=== PATIENT | female | born 1950 | race Caucasian/White ===

== ENCOUNTER 2019-12-23 15:33 | Emergency (ER) | payer MEDICARE, MEDICAID ==
[~2019-12-23] VITALS: Ht 154.9 cm; Wt 76.8 kg
[~2019-12-23 15:33] MED LIST: AMBI10TA; AMBI10TA OR; BABY81CH; CEFT500T; CLON0.2T; CLON0.2T OR; COUM1TAB17; ENAL5TAB OR; FURO80TA2; FURO80TA2 OR; GLYB1.255; HYDR25TA7; HYDR25TA7 OR; INSULANT SC; ISOS30BRAN; ISOS30TA4 OR; KLOR10TA OR; LEVO2TA; LEVO2TA OR; LOPR50TA; LOPR50TA OR; METOPROLOL TARTRATE; NEUR100C OR; NITR0.4S SL; PLAV75TA2 OR; POTA10CA2; RANI150C OR; ULORIC; ZANT150T; ZETI10TA; ZETI10TA OR; uloric PO
[2019-12-23] MEDS ORDERED: NS 1,000 ML IV SCH ×2 (15:57→16:45)
[2019-12-23] MEDS ORDERED: ONDANSETRON 4MG/2ML VIAL IV ONE (16:30)
[2019-12-23 16:37] LABS: BASO # 0.1 10^3/uL (0.0-0.2); BASO % 0.5 % (0.0-1.0); EOS # 0.3 10^3/uL (0.0-0.5); EOS % 2.8 % (0.0-3.0); HEMATOCRIT 42.8 % (36.0-47.0); HEMOGLOBIN 13.8 g/dl (12.0-15.5); LYMPH % 17.8 % (24.0-44.0); MEAN CORPUSCULAR HEMOGLOBIN 29.7 pg (27.0-33.0); MEAN CORPUSCULAR HGB CONC 32.2 g/dl (32.0-36.5); MEAN CORPUSCULAR VOLUME 92.2 fl (80.0-96.0); MONO # 0.4 10^3/uL (0.0-0.8); MONO % 3.6 % (0.0-5.0); NEUTROPHILS # 8.3 10^3/uL (1.5-8.5); NEUTROPHILS % 74.5 % (36.0-66.0); PLATELET COUNT, AUTOMATED 225 10^3/uL (150-450); RED BLOOD COUNT 4.64 10^6/uL (4.00-5.40); WHITE BLOOD COUNT 11.2 10^3/uL (4.0-10.0)
[2019-12-23 16:49] LABS: INR 1.05; PROTHROMBIN TIME 13.9 SECONDS (12.5-14.3)
[2019-12-23 17:07] LABS: ALBUMIN 2.9 GM/DL (3.2-5.2); BILIRUBIN,DIRECT 0.1 MG/DL (0.0-0.2); BILIRUBIN,TOTAL 0.4 MG/DL (0.2-1.0); TOTAL PROTEIN 6.9 GM/DL (6.4-8.2)
[2019-12-23] MEDS ORDERED: CLOP75TA2 PO (17:14)
[2019-12-23] MEDS ORDERED: GABA-843 PO (17:14)
[2019-12-23] MEDS ORDERED: AMIT25TA PO (17:14)
[2019-12-23] MEDS ORDERED: LEVO200T4 PO (17:14)
[2019-12-23] MEDS ORDERED: OMEG12003 PO (17:14)
[2019-12-23] MEDS ORDERED: FERR325T81 PO (17:14)
[2019-12-23] MEDS ORDERED: D31000TA2 PO (17:14)
[2019-12-23] MEDS ORDERED: ATOR1TAB19 PO (17:14)
[2019-12-23] MEDS ORDERED: ENAL5TA PO (17:14)
[2019-12-23] MEDS ORDERED: ALLO100T PO (17:14)
[2019-12-23] MEDS ORDERED: OTEZ1TAB3 PO (17:14)
[2019-12-23] MEDS ORDERED: COLE1TAB PO (17:14)
[2019-12-23] MEDS ORDERED: EZET10TA21 PO (17:14)
[2019-12-23] MEDS ORDERED: ISOS30TA4 PO (17:14)
[2019-12-23] MEDS ORDERED: MELA5CAP2 PO (17:14)
[2019-12-23] MEDS ORDERED: METO50TA7 PO (17:14)
[2019-12-23] MEDS ORDERED: PANT-23 PO (17:14)
--- NOTE | 2019-12-23 18:11 | REPVR ---
PROCEDURE INFORMATION: Exam: CT Abdomen And Pelvis Without Contrast Exam date and time: 12/23/2019 4:59 PM Age: 69 years old Clinical indication: Abdominal pain; Generalized; Additional info: Vomtiing/abd pain TECHNIQUE: Imaging protocol: Computed tomography of the abdomen and pelvis without contrast. Radiation optimization: All CT scans at this facility use at least one of these dose optimization techniques: automated exposure control; mA and/or kV adjustment per patient size (includes targeted exams where dose is matched to clinical indication); or iterative reconstruction. COMPARISON: No relevant prior studies available. FINDINGS: Liver: Normal. No mass. Gallbladder and bile ducts: There has been a cholecystectomy. Intra and extrahepatic biliary ductal dilatation is of questionable important given prior cholecystectomy. Pancreas: Normal. No ductal dilation. Spleen: Normal. No splenomegaly. Adrenals: Normal. No mass. Kidneys and ureters: Right kidney has been surgically removed. 2 mm calcification in the left pelvis on series 201, image 121 appears to be immediately anterior to the left distal ureter in is more likely a phlebolith rather than a ureteral calculus. No left-sided hydronephrosis or hydroureter. There is multifocal left renal cortical scarring Stomach and bowel: There is a moderate amount of stool in the rectum. No bowel dilatation to indicate obstruction. No pneumatosis. There are a few scattered colonic diverticula without gross features of diverticulitis. Appendix: Appendix is grossly unremarkable. Intraperitoneal space: Unremarkable. No free air. No significant fluid collection. Vasculature: Descending thoracic aorta is tortuous and atherosclerotic. Coronary atherosclerosis is noted. There is calcified atherosclerotic plaque in the abdominal aorta and medium-sized arteries in the abdomen and pelvis. No aortic aneurysm. Inferior vena cava filter is present. The distal tips of the prongs protrude slightly inferiorly. Lymph nodes: Unremarkable. No enlarged lymph nodes. Urinary bladder: Unremarkable as visualized. Reproductive: Unremarkable as visualized. Bones/joints: Prior bilateral obturator ring fractures, with reconstruction plate. No acute fracture. Soft tissues: Multiple injection sites are noted in the subcutaneous tissues of the anterior abdominal wall. There is a screw across the left sacroiliac joint through a healed left sacral fracture. Small noninflamed fat containing umbilical hernia. IMPRESSION: 1. No acute findings. 2. Additional findings: Status post right nephrectomy. Intra and extrahepatic biliary ductal dilatation of questionable significance given prior cholecystectomy. Scattered colonic diverticula without gross features of diverticulitis. 2 mm calculus in the left pelvis appears to be a phlebolith immediately adjacent to the left distal ureter. Small noninflamed fat containing umbilical hernia. Electronically signed by: Virgen Boyer On 12/23/2019 18:10:20 PM
[2019-12-23 19:35] LABS: HEMOGLOBIN A1c 6.5 %
[2019-12-23] MEDS ORDERED: ONDA4TAB6 PO ×2 (20:54→21:29)
[2019-12-23] MEDS ORDERED: CEPH250T PO ×2 (20:54→21:29)
--- NOTE | 2019-12-23 20:58 | ECGEPIP ---
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
[2019-12-23 21:00] VITALS: BP 169/103
[2019-12-23] MEDS ORDERED: CEPHALEXIN 250MG CAPSULE PO ONE (21:00)
[2019-12-24] MEDS ORDERED: ZOLP5TAB PO (01:03)
== END 2019-12-23 21:59 | disposition home or self-care (01) ==
LOC: M ED 15:33
DX: N39.0 Urinary tract infection, site not specified (principal); R11.10 Vomiting, unspecified; I10 Essential (primary) hypertension; E03.9 Hypothyroidism, unspecified; Z79.899 Other long term (current) drug therapy; Z87.891 Personal history of nicotine dependence; Z88.0 Allergy status to penicillin; Z88.1 Allergy status to other antibiotic agents; Z88.6 Allergy status to analgesic agent
CPT/HCPCS: 74176; 80047; 80076; 81001; 83036; 83690; 85025; 85610; 87086; 93005; 93041; 96361; 96374; 99285; J2405

== ENCOUNTER 2019-12-24 00:47 | Emergency (ER) | payer MEDICARE, MEDICAID ==
[~2019-12-24] VITALS: Ht 154.9 cm; Wt 76.8 kg
[~2019-12-24 00:47] MED LIST changes: +ALLO100T PO; +AMIT25TA PO; +ATOR1TAB19 PO; +CEPH250T PO; +CLOP75TA2 PO; +COLE1TAB PO; +D31000TA2 PO; +ENAL5TA PO; +EZET10TA21 PO; +FERR325T81 PO; +GABA-843 PO; +ISOS30TA4 PO; +LEVO200T4 PO; +MELA5CAP2 PO; +METO50TA7 PO; +OMEG12003 PO; +ONDA4TAB6 PO; +OTEZ1TAB3 PO; +PANT-23 PO
[2019-12-24] MEDS ORDERED: ZOLP5TAB PO (01:03)
[2019-12-24] MEDS ORDERED: LORazepam 2 MG/ML VIAL IV STA (01:41)
[2019-12-24] MEDS ORDERED: IPRATROPIUM 0.5MG/ALBUTEROL 2.5MG INH SOL UD 3ML (DUONEB) NEB ONE (01:45)
[2019-12-24 02:10] LABS: BASO # 0.2 10^3/uL (0.0-0.2); BASO % 0.8 % (0.0-1.0); EOS % 0.2 % (0.0-3.0); HEMATOCRIT 50.4 % (36.0-47.0); LYMPH # 2.4 10^3/uL (1.5-5.0); MEAN CORPUSCULAR HGB CONC 31.7 g/dl (32.0-36.5); MEAN CORPUSCULAR VOLUME 94.4 fl (80.0-96.0); MONO # 0.6 10^3/uL (0.0-0.8); MONO % 3.1 % (0.0-5.0); NEUTROPHILS # 16.9 10^3/uL (1.5-8.5); NEUTROPHILS % 83.3 % (36.0-66.0); PLATELET COUNT, AUTOMATED 308 10^3/uL (150-450); RED BLOOD COUNT 5.34 10^6/uL (4.00-5.40); WHITE BLOOD COUNT 20.3 10^3/uL (4.0-10.0)
[2019-12-24 02:42] LABS: ABG HCO3 19.2 MEQ/L (22.0-26.0); ABG O2 SATURATION 92.7 % (95.0-99.0); ABG PARTIAL PRESSURE CO2 49.9 mmHg (35.0-45.0); ABG PARTIAL PRESSURE O2 71.8 mmHg (75.0-100.0); ABG STANDARD HCO3 17.3 MEQ/L (22.0-26.0); ABG TOTAL CO2 20.7 MEQ/L (23.0-31.0)
--- NOTE | 2019-12-24 02:42 | REPVR ---
PROCEDURE INFORMATION: Exam: XR Chest, 1 View Exam date and time: 12/24/2019 2:13 AM Age: 69 years old Clinical indication: Cough; Additional info: Dyspnea/cough TECHNIQUE: Imaging protocol: XR of the chest Views: 1 view. COMPARISON: No relevant prior studies available. FINDINGS: Limitations: Examination is limited somewhat by the portable technique. Lungs: Right perihilar infiltrate. Mild left lower lobe infiltrate. Pleural space: Unremarkable. No pleural effusion. No pneumothorax. Heart/Mediastinum: Heart size is within normal limits. Bones/joints: Unremarkable. IMPRESSION: Bilateral infiltrates. Pulmonary edema versus pneumonia. Electronically signed by: Linda Lujan On 12/24/2019 02:41:46 AM
[2019-12-24 02:47] LABS: ABG pH (ARTERIAL) 7.203 UNITS (7.350-7.450)
[2019-12-24 02:49] LABS: ALT/SGPT 29 U/L (12-78); BILIRUBIN,DIRECT < 0.1 MG/DL (0.0-0.2); BILIRUBIN,TOTAL 0.4 MG/DL (0.2-1.0); BLOOD UREA NITROGEN 35 MG/DL (7-18); CALCIUM LEVEL 9.6 MG/DL (8.8-10.2); CARBON DIOXIDE LEVEL 23 MEQ/L (21-32); CHLORIDE LEVEL 112 MEQ/L (98-107); CK-MB VALUE MASS 7.9 NG/ML (<3.6); CPK CREATINE PHOSPHOKINASE 135 U/L (26-192); CREATININE FOR GFR 2.26 MG/DL (0.55-1.30); GLOMERULAR FILTRATION RATE 22.9 (>45); GLUCOSE, FASTING 272 MG/DL (70-100); MB/CK RELATIVE INDEX 5.85 (< OR =4); NT-PRO BNP 22984 PG/ML (<125); POTASSIUM SERUM 5.3 MEQ/L (3.5-5.1); SODIUM LEVEL 143 MEQ/L (136-145); TOTAL PROTEIN 7.5 GM/DL (6.4-8.2); TROPONIN I 1.04 NG/ML (< 0.10)
[2019-12-24] MEDS ORDERED: IPRATROPIUM 0.5MG/ALBUTEROL 2.5MG INH SOL UD 3ML (DUONEB) NEB SCH (03:00)
[2019-12-24] MEDS ORDERED: FUROSEMIDE 100MG/10ML VIAL (J1940) IV ONE (03:00)
--- NOTE | 2019-12-24 03:16 | REPVR ---
PROCEDURE INFORMATION: Exam: CT Chest Without Contrast Exam date and time: 12/24/2019 2:49 AM Age: 69 years old Clinical indication: Shortness of breath; Additional info: SOB, infiltrates vs pulmonary edema on cxr TECHNIQUE: Imaging protocol: Computed tomography of the chest without contrast. 3D rendering (Not supervised by radiologist): MIP and/or 3D reconstructed images were created by the technologist. Radiation optimization: All CT scans at this facility use at least one of these dose optimization techniques: automated exposure control; mA and/or kV adjustment per patient size (includes targeted exams where dose is matched to clinical indication); or iterative reconstruction. COMPARISON: CR PORTABLE CHEST X-RAY 12/24/2019 2:07 AM FINDINGS: Tracheobronchial tree: Visualized airway is unremarkable. Lungs: Diffuse interlobular septal thickening. Diffuse ground-glass opacities bilaterally. Pleural space: Mild bilateral pleural effusions. No pneumothorax. Heart: Mild cardiomegaly. No pericardial effusion. Coronary arteries: Moderate coronary artery calcification. Moderate coronary artery calcification. Aorta: Moderate calcified atherosclerotic disease. No aortic aneurysm. Veins: Tip of the IVC filter seen. Filter is not completely imaged. Lymph nodes: Unremarkable. No enlarged lymph nodes. Diaphragm: Elevated left hemidiaphragm. Kidneys and ureters: Status post right nephrectomy. Bones/joints: No acute fracture. 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 Soft tissues: Unremarkable. IMPRESSION: 1. Diffuse interlobular septal thickening and ground-glass opacities. Suspicious for pulmonary edema. Pneumonia cannot be excluded. Findings are significantly increased from prior. 2. Additional findings as described. Electronically signed by: Linda Lujan On 12/24/2019 03:16:12 AM
[2019-12-24 04:55] LABS: CK-MB VALUE MASS 8.7 NG/ML (<3.6); MB/CK RELATIVE INDEX 9.56 (< OR =4); TROPONIN I 1.18 NG/ML (< 0.10)
--- NOTE | 2019-12-24 05:42 | IPNPDOC ---
Text Note Date of Service The patient was seen on 12/24/19. NOTE is a 69 yr old w a hx of premature CAD (first IA was in her 20s has had multiple stents, ), PAD, CKD, DM CHF who was seen yesterday for UTI; she received 700ml of IVF and abx and was sent home but returned because she developed orthopnea. On ROS she admitted to having relapsing and remitting chest pain frequently with the last episode prior to the ambulance's arrival. Her physical exam was remarkable for inspiratory crackles and BLE edema. Her EKG didn't show acute ST elevations, BNP was 22,000 CT chest showed pulmonary edema and troponin was >1.0. #Dyspnea possibly 2/2 acute CHF Plan: c/w lasix #NSTEMI Because her IRENE score is 6 she has a 41% risk of 14 day all cause mortality. We recommend transfer to another facility in case she needs PCI. rest per 's H&P VS,Fishbone, I+O VS, Wilfridbone, I+O Laboratory Tests 12/24/19 01:56 Vital Signs Date Time Temp Pulse Resp B/P (MAP) Pulse Ox O2 Delivery O2 Flow Rate FiO2 12/24/19 05:17 115 94 12/24/19 04:48 143/89 (107) 12/24/19 04:32 16 12/24/19 01:16 Nasal Cannula 2.0 12/24/19 01:15 97.0 HERNAN PEREZ MD Dec 24, 2019 05:42
[2019-12-24] MEDS ORDERED: HEPARIN DRIP 25,000 UNITS in IV 1 EA IV SCH (06:28)
[2019-12-24] MEDS ORDERED: CLOPIDOGREL 300 MG TAB (PLAVIX) PO ONE (06:30)
[2019-12-24] MEDS ORDERED: HEPARIN SOD (PORCINE) 5000UNITS/ML 1ML VIAL/SYRINGE IV ONE (06:30)
[2019-12-24] MEDS ORDERED: ASPIRIN 81 MG CHEW TABLET PO ONE (06:30)
[2019-12-24 07:52] LABS: INR 1.04; PROTHROMBIN TIME 13.8 SECONDS (12.5-14.3)
[2019-12-24 07:53] LABS: PARTIAL THROMBOPLASTIN TIME 27.5 SECONDS (24.2-38.5)
[2019-12-24 08:40] VITALS: BP 124/86
--- NOTE | 2019-12-24 18:00 | ECGEPIP ---
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
== END 2019-12-24 08:48 | disposition short-term general hospital (02) ==
LOC: M ED 00:47
DX: I50.9 Heart failure, unspecified (principal); R79.89 Other specified abnormal findings of blood chemistry; R94.31 Abnormal electrocardiogram [ECG] [EKG]; I11.0 Hypertensive heart disease with heart failure; E03.9 Hypothyroidism, unspecified; Z88.0 Allergy status to penicillin; Z88.6 Allergy status to analgesic agent; Z88.1 Allergy status to other antibiotic agents; Z79.899 Other long term (current) drug therapy
CPT/HCPCS: 36415; 36600; 71045; 71250; 80048; 80076; 82550; 82553; 82803; 83605; 83880; 84484; 85025; 85610; 85730; 87486; 87581; 87633; 87798; 93005; 93041; 94640; 94760; 96365; 96375; 99285; J1644; J1940; J2060

== ENCOUNTER → 2020-02-17 | Outpatient (REF) | payer MEDICARE ==
[~2020-02-17] MED LIST changes: +ZOLP5TAB PO
[2020-02-18 13:11] LABS: HEMATOCRIT 42.3 % (36.0-47.0); HEMOGLOBIN 13.1 g/dl (12.0-15.5); MEAN CORPUSCULAR HEMOGLOBIN 30.5 pg (27.0-33.0); MEAN CORPUSCULAR VOLUME 98.6 fl (80.0-96.0); PLATELET COUNT, AUTOMATED 252 10^3/uL (150-450); RED BLOOD COUNT 4.29 10^6/uL (4.00-5.40); WHITE BLOOD COUNT 8.2 10^3/uL (4.0-10.0)
[2020-02-18 13:50] LABS: CHOLESTEROL RISK RATIO 2.625 (<5); CREATININE FOR GFR 1.85 MG/DL (0.55-1.30); FREE T4 3.53 NG/DL (0.76-1.46); GLOMERULAR FILTRATION RATE 28.9 (>45); POTASSIUM SERUM 4.9 MEQ/L (3.5-5.1); THYROID STIMULATING HORMONE 0.019 uIU/ML (0.358-3.740); URIC ACID 9.4 MG/DL (2.6-6.0)
== END ==
LOC: M SFHCADAM 15:31
PROVIDERS: ATTEND Physician Assistant
DX: E03.9 Hypothyroidism, unspecified (principal); E11.21 Type 2 diabetes mellitus with diabetic nephropathy; N18.32 Chronic kidney disease, stage 3b; I25.10 Atherosclerotic heart disease of native coronary artery without angina pectoris; Z87.39 Personal history of other diseases of the musculoskeletal system and connective tissue; Z23 Encounter for immunization
CPT/HCPCS: 80048; 80061; 84439; 84443; 84550; 85027; 90732; G0009; G0463

== ENCOUNTER → 2020-04-20 | Outpatient (REF) | payer MEDICARE ==
[~2020-04-20] MED LIST changes: -AMIT25TA PO; +AMIT25TA17 PO; +GABA-282 PO; -GABA-843 PO; +ISOS1TAB35 PO; -ISOS30TA4 PO
[2020-04-20 17:16] LABS: HEMOGLOBIN A1c 6.6 %
[2020-04-20 17:30] LABS: FREE T4 2.37 NG/DL (0.76-1.46); THYROID STIMULATING HORMONE < 0.005 uIU/ML (0.358-3.740)
== END ==
LOC: M SFHCADAM 12:07
PROVIDERS: ATTEND Physician Assistant
DX: E03.9 Hypothyroidism, unspecified (principal); E11.21 Type 2 diabetes mellitus with diabetic nephropathy; K52.9 Noninfective gastroenteritis and colitis, unspecified

== ENCOUNTER → 2020-06-20 | Outpatient (REF) | payer MEDICARE ==
[2020-06-20 13:26] LABS: FREE T4 1.55 NG/DL (0.76-1.46); THYROID STIMULATING HORMONE < 0.005 uIU/ML (0.358-3.740)
[2020-06-20 13:31] LABS: HEMOGLOBIN A1c 6.7 %
== END ==
LOC: M SFHCADAM 10:16
PROVIDERS: ATTEND Physician Assistant
DX: E11.21 Type 2 diabetes mellitus with diabetic nephropathy (principal); E03.9 Hypothyroidism, unspecified
CPT/HCPCS: 83036; 84439; 84443; G0463

== ENCOUNTER 2021-01-01 20:32 | Inpatient (IN) | payer MEDICARE ==
[~2021-01-01] VITALS: Ht 154.9 cm; Wt 81.5 kg
[2021-01-01 22:31] LABS: HEMATOCRIT 39.1 % (36.0-47.0); HEMOGLOBIN 12.7 g/dl (12.0-15.5); MEAN CORPUSCULAR HEMOGLOBIN 31.4 pg (27.0-33.0); MEAN CORPUSCULAR HGB CONC 32.5 g/dl (32.0-36.5); MEAN CORPUSCULAR VOLUME 96.5 fl (80.0-96.0); PLATELET COUNT, AUTOMATED 142 10^3/uL (150-450); RED BLOOD COUNT 4.05 10^6/uL (4.00-5.40)
[2021-01-01 22:42] LABS: INR 1.05; PROTHROMBIN TIME 14.2 SECONDS (12.7-14.5)
[2021-01-01 22:43] LABS: PARTIAL THROMBOPLASTIN TIME 37.8 SECONDS (25.9-37.0)
[2021-01-01 22:45] LABS: D-DIMER QUANT 3331.45 ng/ml (<500)
[2021-01-01 23:03] LABS: ALBUMIN 2.1 GM/DL (3.2-5.2); BILIRUBIN,TOTAL 0.6 MG/DL (0.2-1.0); C REACTIVE PROTEIN QUANTITATIV 15.7 MG/DL (0.00-0.30); CK-MB VALUE MASS 2.1 NG/ML (<3.6); CREATININE FOR GFR 1.79 MG/DL (0.55-1.30); GLOMERULAR FILTRATION RATE 29.9 (>45); MAGNESIUM LEVEL 2.1 MG/DL (1.8-2.4); MB/CK RELATIVE INDEX 0.61 (< OR =4); POTASSIUM SERUM 3.6 MEQ/L (3.5-5.1); TOTAL PROTEIN 5.8 GM/DL (6.4-8.2); TROPONIN I 0.05 NG/ML (< 0.10)
[2021-01-01 23:11] LABS: LYMPHOCYTES 16 % (16-44); MONOCYTES 3 % (0-5); NEUTROPHILS 79 % (28-66)
[2021-01-01 23:12] LABS: PLATELET ESTIMATE DECREASED (NORMAL)
[2021-01-02] VITALS (7 sets, daily range): BP systolic 108–121; BP diastolic 56–61; O2SAT 91–95
--- NOTE | 2021-01-02 00:14 | REPVR ---
PROCEDURE INFORMATION: Exam: XR Chest Exam date and time: 01/01/2021 10:21 PM Age: 70 years old Clinical indication: COVID positive; Additional info: Coronavirus workup TECHNIQUE: Imaging protocol: XR of the chest. Views: 1 view. COMPARISON: CT Chest without contrast 12/24/2019 2:52 AM FINDINGS: Lungs: There are airspace opacities in both lungs, left greater than right. Pleural spaces: Unremarkable. No pleural effusion. No pneumothorax. Heart/Mediastinum: The cardiac silhouette is borderline in size. Bones/joints: Unremarkable. IMPRESSION: Airspace opacities in both lungs, left greater than right, which is in keeping with the patient's history of COVID positive pneumonia. Electronically signed by: Margarito Kessler On 01/02/2021 00:14:24 AM
[2021-01-02] MEDS ORDERED: ISOVUE-370 76% 100ML VIAL As Ordered ONE (01:28)
[2021-01-02] MEDS ORDERED: ACETAMINOPHEN TAB 650MG DOSE (2X325MG) PO ONE (01:35)
[2021-01-02] MEDS ORDERED: NS 1,000 ML IV SCH (01:35)
--- NOTE | 2021-01-02 01:55 | REPVR ---
PROCEDURE INFORMATION: Exam: CT Head Without Contrast Exam date and time: 01/02/2021 1:12 AM Age: 70 years old Clinical indication: Injury or trauma; Fall; Concussion/head injury TECHNIQUE: Imaging protocol: Computed tomography of the head without contrast. Radiation optimization: All CT scans at this facility use at least one of these dose optimization techniques: automated exposure control; mA and/or kV adjustment per patient size (includes targeted exams where dose is matched to clinical indication); or iterative reconstruction. COMPARISON: No relevant prior studies available. FINDINGS: Brain: There is no CT evidence for an acute large vessel territorial infarct. No acute intracranial hemorrhage is seen. No mass effect, midline shift, or herniation is noted. Cerebral ventricles: Normal. No hydrocephalus. Paranasal sinuses: The imaged portions of the sinuses are well aerated. No air-fluid levels are noted in the sinuses. The maxillary sinuses were not fully imaged. Mastoid air cells: The mastoid air cells are well aerated. Orbital cavity: The globes and orbits are intact. Incidental note is made of bilateral lens implants. Vasculature: There are atherosclerotic calcifications of the intracranial portion of the internal carotid arteries. Bones/joints: The skull is intact. No suspicious osteolytic or osteoblastic lesion. Soft tissues: Unremarkable. IMPRESSION: Intact skull. No acute intracranial hemorrhage or acute intracranial abnormality. Electronically signed by: Margarito Kessler On 01/02/2021 01:55:12 AM
--- NOTE | 2021-01-02 02:59 | REPVR ---
PROCEDURE INFORMATION: Exam: CTA Chest With Contrast Exam date and time: 01/02/2021 1:15 AM Age: 70 years old Clinical indication: Shortness of breath; Patient HX: Covid +; Additional info: Rule out pe, acute SOB TECHNIQUE: Imaging protocol: Computed tomographic angiography of the chest with contrast. 3D rendering (Not supervised by radiologist): MIP and/or 3D reconstructed images were created by the technologist. Radiation optimization: All CT scans at this facility use at least one of these dose optimization techniques: automated exposure control; mA and/or kV adjustment per patient size (includes targeted exams where dose is matched to clinical indication); or iterative reconstruction. Contrast material: ISO; Contrast volume: 75 ml; Contrast route: INTRAVENOUS (IV); COMPARISON: 1. CT Chest without contrast 2019-12-24 02:52 2. CR PORTABLE CHEST X-RAY 2021-01-01 22:08 FINDINGS: Pulmonary arteries: No filling defects in the pulmonary arteries to suggest pulmonary emboli. Aorta: Unremarkable. No aortic aneurysm. No aortic dissection. Other arteries: Mild moderate coronary artery calcifications. Lungs: Moderate peripheral ground-glass lung infiltrates, correlate for atypical viral pneumonitis. Pleural spaces: Unremarkable. No pneumothorax. No pleural effusion. Heart: Unremarkable. No cardiomegaly. No pericardial effusion. Lymph nodes: Mild mediastinal adenopathy. Gallbladder and bile ducts: Cholecystectomy clips in the right upper quadrant. Bones/joints: Unremarkable. No acute fracture. Soft tissues: Unremarkable. IMPRESSION: 1. No filling defects in the pulmonary arteries to suggest pulmonary emboli. 2. Moderate peripheral ground-glass lung infiltrates, correlate for atypical viral pneumonitis. Electronically signed by: Quinn Alvarado On 01/02/2021 02:58:58 AM
[2021-01-02] MEDS ORDERED: GLUCOSE 4GM CHEW TABLET PO PRN (03:45)
[2021-01-02] MEDS ORDERED: IPRATROPIUM 0.5MG/ALBUTEROL 2.5MG INH SOL UD 3ML (DUONEB) NEB PRN (03:45)
[2021-01-02] MEDS ORDERED: DEXTROSE 50% 50 ML SYRINGE IV PRN (03:45)
[2021-01-02] MEDS ORDERED: GLUCAGON INJ 1MG VIAL SC PRN (03:45)
[2021-01-02] MEDS ORDERED: BASA100I SC (03:50)
[2021-01-02] MEDS ORDERED: LEVO150T7 PO (03:51)
[2021-01-02] MEDS ORDERED: FURO80TA2 PO (03:51)
[2021-01-02] MEDS ORDERED: med rec comment (03:52)
[2021-01-02] MEDS ORDERED: HOME MED LIST COMPLETE! XX SCH (03:55)
[2021-01-02 04:18] LABS: FREE T4 1.44 NG/DL (0.76-1.46); THYROID STIMULATING HORMONE 0.219 uIU/ML (0.358-3.740)
--- NOTE | 2021-01-02 04:37 | HPEPDOC ---
[facility] Medical History & Physical Date of Admission Jan 02, 2021 Date of Service: Jan 02, 2021 Attending Physician: JESUS ZALDIVAR MD History and Physical CHIEF COMPLAINT: [70 y/o female presents with cc of sob x1 week] HISTORY OF PRESENT ILLNESS: [Patient is somewhat obtunded during my exam and thus a poor historian. Majority of history is taken from ED staff and the chart. This is a 70 y/o female with a pmh of cad s/p stenting, htn, gout, dvt, chf, cervical ca, dm2, gerd, hld, hypothyroidism and ckd4 who presents to our ed on 01/01 with a cc of sob for approx 1 week. Patient tells me that she thinks her symptoms started on 12/26 and have progressed. Patient tells me that currently she feels "a lot better" but is having a lot of shortness of breath. Patient tells me that she is not currently having any chest pain, abdominal pain. Patient tested positive for covid19 with imaging indicative of pneumonia. Patient acutely requiring 4L supplemental o2. ] PAST MEDICAL HISTORY: 1. [See HPI PAST SURGICAL HISTORY: 1. [Right nephrectomy]. 2. [Cholecystectomy]. 3. [Hysterectomy 4. Left knee replacement x2]. SOCIAL HISTORY: Tobacco use:[Former] FAMILY HISTORY: Unable to obtain d/t mentation ALLERGIES: Please see below. REVIEW OF SYSTEMS: Unable to obtain accurate ROS d/t mentation HOME MEDICATIONS: Please see below. PHYSICAL EXAMINATION: VITAL SIGNS: Please see below. GENERAL APPEARANCE: [Somnolent 70 y/o female. Patient does not begin conversing with me until after loud vocal and a light physical stimulus. Patient answers most questions with one word yes/no answers. Patient does not appear to be in any distress ]. HEENT: [No mass or lesion. Patient keeps eyes closed for exam and interview. Nares patent. Oral mucosa moist]. CARDIOVASCULAR: [Tachy rate, regular rhythm. No murmurs, rubs, gallops]. LUNGS: [Decreased breath sounds throughout. No wheezing, rales, rhonchi]. ABDOMEN: [Abdomen acutely tender to RUQ and epigastrum with guarding. Soft]. MUSCULOSKELETAL: [No joint deformity noted]. EXTREMITIES: [No pedal edema noted. Skin findings consistent with venous stasis to b/l le. Pulses intact]. NEUROLOGICAL: [Speech clear but delayed. Patient A+Ox3 with coaxing of questions. No obvious focal deficits]. PSYCHIATRIC: [Mood and affect appear appropriate]. LABORATORY DATA: See below. IMAGING: [CXR: FINDINGS: Lungs: There are airspace opacities in both lungs, left greater than right. Pleural spaces: Unremarkable. No pleural effusion. No pneumothorax. Heart/Mediastinum: The cardiac silhouette is borderline in size. Bones/joints: Unremarkable. IMPRESSION: Airspace opacities in both lungs, left greater than right, which is in keeping with the patient's history of COVID positive pneumonia. CT Head: FINDINGS: Brain: There is no CT evidence for an acute large vessel territorial infarct. No acute intracranial hemorrhage is seen. No mass effect, midline shift, or herniation is noted. Cerebral ventricles: Normal. No hydrocephalus. Paranasal sinuses: The imaged portions of the sinuses are well aerated. No air-fluid levels are noted in the sinuses. The maxillary sinuses were not fully imaged. Mastoid air cells: The mastoid air cells are well aerated. Orbital cavity: The globes and orbits are intact. Incidental note is made of bilateral lens implants. Vasculature: There are atherosclerotic calcifications of the intracranial portion of the internal carotid arteries. Bones/joints: The skull is intact. No suspicious osteolytic or osteoblastic lesion. Soft tissues: Unremarkable. IMPRESSION: Intact skull. No acute intracranial hemorrhage or acute intracranial abnormality. CTA Chest: FINDINGS: Pulmonary arteries: No filling defects in the pulmonary arteries to suggest pulmonary emboli. Aorta: Unremarkable. No aortic aneurysm. No aortic dissection. Other arteries: Mild moderate coronary artery calcifications. Lungs: Moderate peripheral ground-glass lung infiltrates, correlate for atypical viral pneumonitis. Pleural spaces: Unremarkable. No pneumothorax. No pleural effusion. Heart: Unremarkable. No cardiomegaly. No pericardial effusion. Lymph nodes: Mild mediastinal adenopathy. Gallbladder and bile ducts: Cholecystectomy clips in the right upper quadrant. Bones/joints: Unremarkable. No acute fracture. Soft tissues: Unremarkable. IMPRESSION: 1. No filling defects in the pulmonary arteries to suggest pulmonary emboli. 2. Moderate peripheral ground-glass lung infiltrates, correlate for atypical viral pneumonitis. ] MICROBIOLOGY: Please see below. ASSESSMENT: [This is a 70 y/o female with a pmh of cad s/p stenting, htn, gout, dvt, chf, cervical ca, dm2, gerd, hld, hypothyroidism and ckd4 who presents to our ed on 01/01 with a cc of sob for approx 1 week. Patient tested positive for covid19 with imaging indicative of pneumonia. Patient acutely requiring 4L supplemental o2. Of potential importance, patient seems somewhat obtunded during interview and exam]. . PLAN: 1. [Acute hypoxic respiratory failure 2/2 COVID pneumonia - Patient currently requiring 4L nasal canula to keep o2 sats >90% - Will continue supplemental o2 titrated to >90% - Will begin remdesevir/dexamethasone per protocol - Will choose not to start abx at this time d/t no leukocytosis, consolidations on imaging. Will check a procalcitonin. - Awake pronation as tolerated - Duonebs for sx relief - Tylenol for fevers - admit to med surg for tx 2. Encephalopathy/AMS - Patient mildly obtunded on exam, needed to be lightly shook to become respons osmany to me. Answered questions after a delay, answered most questions with one word, yes/no answers. - CT head performed in the ED negative - will check an ammonia, thyroid studies, blood gas - monitor mentation 3. Abdominal pain - Patient tells me she does not have pain, however exhibited a prompt response with palpation of her RUQ and epigastrum - f/u ct abd/pelvis 4. DM2 - continue at home basal dose - sliding scale coverage - hypoglycemic protocol - hold gabapentin for now d/t mentation 5. CAD - continue isosorbide, plavix 6. CHF - patient not in acute exacerbation - continue at home lasix dose 7. HTN - continue at home metoprolol, enalapril 8. HLD - continue atorvastatin, zetia 9. Hypothyroidism - continue synthroid 10. GERD - continue protonix 11. Gout - continue allopurinol DVT prophylaxis - lovenox]. Vital Signs Vital Signs Date Time Temp Pulse Resp B/P (MAP) Pulse Ox O2 Delivery O2 Flow Rate FiO2 01/02/21 02:45 58 109/57 (74) 01/02/21 02:00 16 92 Nasal Cannula 4.0 01/01/21 20:45 100.4 Laboratory Data Labs 24H Laboratory Tests 2 01/01/21 21:52: Neutrophils (%) (Auto) , Nucleated Red Blood Cells % (auto) 0.0, Neutrophils 79H, Band Neutrophils 2, Lymphocytes (Manual) 16, Monocytes (Manual) 3, Red Blood Cell Morphology NORMAL, Platelet Estimate DECREASED, Prothrombin Time 14.2H, Prothromb Time International Ratio 1.05, Activated Partial Thromboplast Time 37.8, Fibrinogen 621H, D-Dimer, Quantitative 3331.45H, Anion Gap 9, Glomerular Filtration Rate 29.9L, Lactic Acid Level 1.1, Calcium Level 8.0L, Magnesium Level 2.1, Ferritin 7561H, Total Bilirubin 0.6, Aspartate Amino Transf (AST/SGOT) 91H, Alanine Aminotransferase (ALT/SGPT) 49, Alkaline Phosphatase 98, Lactate Dehydrogenase 586H, Total Creatine Kinase 345H, Creatine Kinase MB 2.1, Creatine Kinase MB Relative Index 0.61, Troponin I 0.05, C-Reactive Protein, Quantitative 15.70H, Total Protein 5.8L, Albumin 2.1L, Albumin/Globulin Ratio 0.6L 01/02/21 04:00: CBC/BMP Laboratory Tests 01/01/21 21:52 Microbiology Microbiology 01/02/21 Blood Culture, Received Pending 01/01/21 Respiratory Virus Panel (PCR) ([facility]) - Final, Complete SARS-CoV-2 (COVID 19) 01/01/21 Blood Culture, Received Pending Home Medications Scheduled Allopurinol (Allopurinol) 100 Mg Tablet, 100 MG PO DAILY Amitriptyline HCl (Amitriptyline HCl) 25 Mg Tablet, 25 MG PO DAILY Atorvastatin Calcium (Atorvastatin Calcium) 10 Mg Tablet, 10 MG PO DAILY Cholecalciferol (Vitamin D3) (Vitamin D3) 1,000 Unit Tablet, 1,000 UNITS PO DAILY Clopidogrel Bisulfate (Clopidogrel) 75 Mg Tablet, 75 MG PO DAILY Colestipol HCl (Colestipol HCl) 1 Gm Tablet, 1 GM PO BID Enalapril Maleate (Enalapril Maleate) 5 Mg Tablet, 5 MG PO BID Ezetimibe (Ezetimibe) 10 Mg Tablet, 10 MG PO DAILY Ferrous Sulfate (Iron) 325 Mg Tablet, 65 MG PO DAILY Furosemide (Furosemide) 80 Mg Tablet, 80 MG PO BID Gabapentin (Gabapentin) 300 Mg Capsule, 300 MG PO TID Insulin Glargine,Hum.rec.anlog (Basaglar Kwikpen U-100) 100 Unit/1 Ml Insuln.pen, 20 UNIT SC DAILY Isosorbide Mononitrate (Isosorbide Mononitrate ER) 30 Mg Tab.er.24h, 30 MG PO DAILY Levothyroxine Sodium (Levothyroxine Sodium) 150 Mcg Tablet, 150 MCG PO DAILY Melatonin (Melatonin) 5 Mg Capsule, 5 MG PO QHS Metoprolol Tartrate (Metoprolol Tartrate) 50 Mg Tablet, 50 MG PO BID Pantoprazole Sodium (Pantoprazole Sodium) 40 Mg Tablet.dr, 40 MG PO DAILY Scheduled PRN Zolpidem Tartrate (Zolpidem Tartrate) 5 Mg Tablet, 5 MG PO QPMP PRN for sleep Miscellaneous Medications [med rec comment] pt. unaware of med names or doses or last dosage taken,used external med history Allergies Coded Allergies: Macrolide Antibiotics (Verified Allergy, Unknown, 12/23/19) Penicillins (Verified Allergy, Unknown, 12/23/19) Quinolones (Verified Allergy, Unknown, 02/01/20) codeine (Verified Allergy, Unknown, 12/23/19) erythromycin base (Verified Allergy, Unknown, 12/23/19) morphine (Verified Allergy, Unknown, 12/23/19) nitroglycerin (Verified Allergy, Unknown, PATCHES, 02/01/20) ranolazine (Verified Allergy, Unknown, 02/01/20) telithromycin (Verified Allergy, Unknown, 12/23/19) A-FIB/CHADSVASC A-FIB History Current/History of A-Fib/PAF?: No GIANLUCA CAMP Jan 02, 2021 04:37
--- NOTE | 2021-01-02 04:43 | REPVR ---
PROCEDURE INFORMATION: Exam: CT Abdomen And Pelvis Without Contrast Exam date and time: 01/02/2021 4:07 AM Age: 70 years old Clinical indication: Abdominal pain; Generalized; Additional info: Abd pain/guarding TECHNIQUE: Imaging protocol: Computed tomography of the abdomen and pelvis without contrast. Radiation optimization: All CT scans at this facility use at least one of these dose optimization techniques: automated exposure control; mA and/or kV adjustment per patient size (includes targeted exams where dose is matched to clinical indication); or iterative reconstruction. COMPARISON: 1. CT ABD PELVIS W/O CONTRAST 2019-12-23 16:[address] ANGIO CHEST 2021-01-02 01:25 FINDINGS: Limitations: Limited by patient's body habitus. Artifact related to patient's arm position limits evaluation. Liver: Hepatic steatosis. Gallbladder and bile ducts: Cholecystectomy clips in the right upper quadrant. Pancreas: Normal. No ductal dilation. Spleen: Splenomegaly. Adrenal glands: Normal. No mass. Kidneys and ureters: Right nephrectomy. Benign 1 cm left inferior renal pole simple cyst. Stomach and bowel: Unremarkable. No obstruction. No mucosal thickening. Appendix: No evidence of appendicitis. Intraperitoneal space: Unremarkable. No free air. No significant fluid collection. Vasculature: IVC filter. Mild to moderate aortic and iliac artery atherosclerotic calcification. Lymph nodes: Unremarkable. No enlarged lymph nodes. Urinary bladder: Bladder distension. Reproductive: Hysterectomy. Left sacroiliac arthrodesis screws. Bones/joints: Pubic symphysis previous open reduction and internal fixation. Soft tissues: Small fat protruding umbilical hernia. IMPRESSION: 1. Bladder distension. 2. Splenomegaly. 3. Bladder distension. COMMENTS: 1. Consistent with the [employer]'s Incidental Findings Committee white paper (J Am Shanta Radiol 2018): Any incidental renal lesion less than 1 cm or classified as too small to characterize, or any incidental cystic renal lesion characterized as simple-appearing, is likely benign. No follow-up imaging is recommended for these lesions per consensus recommendations based on imaging criteria. 2. For patients with an IVC filter, recommend assessment for a management plan for the patient's IVC filter. If there is no established management plan, recommend referral to an interventional clinician on a nonemergent basis for evaluation. Electronically signed by: Quinn Alvarado On 01/02/2021 04:42:37 AM
[2021-01-02] MEDS ORDERED: zolPIDEM TARTRATE 5 MG TAB PO PRN (05:05)
[2021-01-02 05:57] LABS: VENOUS BASE EXCESS -1.1 (-2.0-2.0); VENOUS HCO3 24.7 MEQ/L (23.0-27.0); VENOUS O2 SATURATION 69.6 % (60.0-80.0); VENOUS PARTIAL PRESSURE CO2 45.4 mmHg (38.0-50.0); VENOUS PARTIAL PRESSURE O2 36.2 mmHg (30.0-50.0); VENOUS PH 7.354 UNITS (7.330-7.430); VENOUS TOTAL CO2 26.1 MEQ/L (24.0-28.0)
[2021-01-02] MEDS ORDERED: REMDESIVIR 200 MG in NS 250 ML IV ONE (06:00)
[2021-01-02 06:03] LABS: APPEARANCE, URINE HAZY (CLEAR); BACTERIA, URINE AUTO NEGATIVE (NEGATIVE); BILIRUBIN, URINE AUTO NEGATIVE (NEGATIVE); BLOOD, URINE BLOOD 1+ (NEGATIVE); COLOR, URINE YELLOW (YELLOW); GLUCOSE, URINE (UA) AUTO NEGATIVE (NEGATIVE); KETONE, URINE AUTO TRACE mg/dL (NEGATIVE); LEUKOCYTE ESTERASE, URINE AUTO NEGATIVE (NEGATIVE); NITRITE, URINE AUTO NEGATIVE (NEGATIVE); PROTEIN, URINE AUTO 2+ mg/dL (NEGATIVE); RBC, URINE AUTO 2 /HPF (0-3); SPECIFIC GRAVITY URINE AUTO 1.021 (1.002-1.035); SQUAMOUS EPITHELIAL CELL UR AU 1 /HPF (0-6); UROBILINOGEN, URINE AUTO 0.2 mg/dL (0.0-2.0); WBC, URINE AUTO 0 /HPF (0-3)
[2021-01-02 06:12] LABS: HEMATOCRIT 38.4 % (36.0-47.0); HEMOGLOBIN 12.3 g/dl (12.0-15.5); MEAN CORPUSCULAR HEMOGLOBIN 31.2 pg (27.0-33.0); MEAN CORPUSCULAR VOLUME 97.5 fl (80.0-96.0); PLATELET COUNT, AUTOMATED 151 10^3/uL (150-450); RED BLOOD COUNT 3.94 10^6/uL (4.00-5.40); WHITE BLOOD COUNT 6.1 10^3/uL (4.0-10.0)
[2021-01-02 06:28] LABS: ALBUMIN 1.9 GM/DL (3.2-5.2); BILIRUBIN,TOTAL 0.6 MG/DL (0.2-1.0); CALCIUM LEVEL 8.4 MG/DL (8.8-10.2); CREATININE FOR GFR 1.75 MG/DL (0.55-1.30); GLOMERULAR FILTRATION RATE 30.7 (>45); MAGNESIUM LEVEL 2.3 MG/DL (1.8-2.4); POTASSIUM SERUM 3.4 MEQ/L (3.5-5.1); TOTAL PROTEIN 6.5 GM/DL (6.4-8.2); TROPONIN I 0.04 NG/ML (< 0.10)
[2021-01-02] MEDS ORDERED: SODIUM CHLORIDE 0.9% INJ 10 ML SYR IV ONE (08:00)
[2021-01-02] MEDS: LEVEMIR (INSULIN DETEMIR) 1 UNITS/0.01ML SC SCH (08:27)
[2021-01-02] MEDS: HumaLOG INSULIN (NovoLOG) PER UNIT SC SCH ×4 (08:27→21:00)
[2021-01-02] MEDS: EZETIMIBE 10MG TABLET (ZETIA) PO SCH (08:28)
[2021-01-02] MEDS: LEVOTHYROXINE 150MCG TABLET (0.15MG) PO SCH (08:28)
[2021-01-02] MEDS: dexameTHASONE 4 MG/ML 1ML VIAL (J1100 PER 1MG) IV SCH (08:28)
[2021-01-02] MEDS: FERROUS SULFATE 325MG TAB PO SCH (08:28)
[2021-01-02] MEDS: CLOPIDOGREL 75 MG TAB PO SCH (08:29)
[2021-01-02] MEDS: AMITRIPTYLINE 25MG TABLET PO SCH (08:29)
[2021-01-02] MEDS: ASPIRIN 81MG ENTERIC TABLET PO SCH (08:29)
[2021-01-02] MEDS: allopurinoL 100 MG TAB PO SCH (08:29)
[2021-01-02] MEDS: PANTOPRAZOLE 40MG TAB (PROTONIX) PO SCH (08:29)
[2021-01-02] MEDS: ATORVASTATIN 10 MG TAB PO SCH (08:29)
[2021-01-02] MEDS: ISOSORBIDE MON. (IMDUR) 30 MG XR TAB PO SCH (08:30)
[2021-01-02] MEDS ORDERED: FUROSEMIDE 80 MG TAB PO SCH (09:00)
[2021-01-02] MEDS ORDERED: ENALAPRIL MALEATE 5 MG TAB PO SCH (09:00)
[2021-01-02] MEDS ORDERED: ENOXAPARIN 100MG/1ML SYRINGE (J1650 PER 10MG) SC SCH (09:00)
[2021-01-02] MEDS ORDERED: METOPROLOL TART 50 MG TAB PO SCH (09:00)
[2021-01-02] MEDS ORDERED: GABAPENTIN 300 MG CAP PO SCH (09:00)
[2021-01-02] MEDS ORDERED: VANCOMYCIN HCL 1,000 MG, VIAL MATE ADAPTER 1 EACH in NS 250 ML IV SCH (16:10)
--- NOTE | 2021-01-02 16:11 | IPNPDOC ---
Subjective Date Seen The patient was seen on 01/02/21. Subjective Chief Complaint/HPI Does not offer any complaints this morning just complains of feeling very weak and tired. Denies any shortness of breath or cough or chest pain. Patient remains on 4 L of oxygen Objective Physical Examination General Exam: Positive: Alert, Cooperative, No Acute Distress Eye Exam: Positive: PERRLA, Conjunctiva & lids normal, EOMI; Negative: Sclera icteric ENT Exam: Positive: Atraumatic, Mucous membr. moist/pink, Pharynx Normal Neck Exam: Positive: Supple; Negative: JVD, thyromegaly Chest Exam: Positive: Other (Bilateral diffuse crackles); Negative: Rhonchi, Wheezing Heart Exam: Positive: Rate Normal, Regular Rhythm, Normal S1, Normal S2; Negative: Murmurs, Rubs Abdomen Exam: Positive: Normal bowel sounds, Soft; Negative: Tenderness Extremity Exam: Negative: Clubbing, Cyanosis, Edema Skin Exam: Positive: Nl turgor and temperature; Negative: Rash, Breakdown Psych Exam: Positive: Memory Intact, Oriented x 3 Assessment /Plan Assessment This is a 70 y/o female with a pmh of PAD, CKD, DM, CHF, premature cad in her 20s s/p multiple stents, htn, gout, dvt, cervical ca, gerd, hld, hypothyroidism who presented to our ED on 01/01 with a cc of sob for approx 1 week. Patient tested positive for covid19 with imaging indicative of pneumonia. Patient acutely requiring 4L supplemental o2. Patient admitted for Covid pneumonia and hypoxia COVID pneumonia with acute hypoxic respiratory failure Patient currently requiring 4L nasal canula Continue remdesevir/dexamethasone per protocol Procalcitonin is elevated at 1.26 so we will start on ceftriaxone and vancomycin 1/ 2 bottles positive for gram-positive cocci in clusters. Will check MRSA PCR screen. Awake pronation as tolerated, incentive spirometry Duonebs for sx relief Tylenol for fevers Acute metabolic encephalopathy Likely due to hypoxia and medications Improved We will discontinue Ambien, gabapentin, will hold amitriptyline if sedated or confused CKD Stage IV Creatinine appears to be at baseline We will hold KATRIN inhibitor and Lasix because of low blood pressure DM2 Continue Levemir and lispro hold gabapentin for now d/t mentation CAD continue isosorbide, plavix History CHF patient not in acute exacerbation Has poor intake at this point We will hold Lasix for now HTN Blood pressure low normal Will discontinue enalapril, give metoprolol with hold parameter HLD continue atorvastatin, zetia Hypothyroidism continue synthroid GERD continue protonix Gout continue allopurinol Plan/VTE VTE Prophylaxis Ordered?: Yes VS, I&O, 24H, Fishbone Vital Signs/I&O Vital Signs Date Time Temp Pulse Resp B/P (MAP) Pulse Ox O2 Delivery O2 Flow Rate FiO2 01/02/21 14:00 97.9 52 22 108/56 (73) 93 Nasal Cannula 4.0 Laboratory Data 24H LABS Laboratory Tests 2 01/01/21 21:52: Neutrophils (%) (Auto) , Nucleated Red Blood Cells % (auto) 0.0, Neutrophils 79H, Band Neutrophils 2, Lymphocytes (Manual) 16, Monocytes (Manual) 3, Red Bl ood Cell Morphology NORMAL, Platelet Estimate DECREASED, Prothrombin Time 14.2H, Prothromb Time International Ratio 1.05, Activated Partial Thromboplast Time 37.8, Fibrinogen 621H, D-Dimer, Quantitative 3331.45H, Anion Gap 9, Glomerular Filtration Rate 29.9L, Lactic Acid Level 1.1, Calcium Level 8.0L, Magnesium Level 2.1, Ferritin 7561H, Total Bilirubin 0.6, Aspartate Amino Transf (AST/SGOT) 91H, Alanine Aminotransferase (ALT/SGPT) 49, Alkaline Phosphatase 98, Lactate Dehydrogenase 586H, Total Creatine Kinase 345H, Creatine Kinase MB 2.1, Creatine Kinase MB Relative Index 0.61, Troponin I 0.05, C-Reactive Protein, Quantitative 15.70H, Total Protein 5.8L, Albumin 2.1L, Albumin/Globulin Ratio 0.6L, Procalcitonin 1.26, Thyroid Stimulating Hormone (TSH) 0.219L, Free Thyroxine 1.44 01/02/21 04:00: Ammonia 18 01/02/21 05:16: Bedside Glucose (Misc Panel) 117H 01/02/21 05:34: Urine Color YELLOW, Urine Appearance HAZY, Urine pH 5.0, Urine Specific [place] 1.021, Urine Protein 2+H, Urine Glucose (Auto)(UA) NEGATIVE, Urine Ketones (Au to) TRACEH, Urine Blood 1+H, Urine Nitrite NEGATIVE, Urine Bilirubin NEGATIVE, Urine Urobilinogen 0.2, Urine Leukocyte Esterase (Auto) NEGATIVE, Urine WBC (Auto) 0, Urine RBC (Auto) 2, Urine Hyaline Casts (Auto) 0, Urine Bacteria (Auto) NEGATIVE, Urine Squamous Epithelial Cells 1, Urine Sperm (Auto) 01/02/21 05:51: Nucleated Red Blood Cells % (auto) 0.3H, Blood Gas Bicarbonate Standard 23.0, Venous Blood pH 7.354, Venous Blood Partial Pressure CO2 45.4, Venous Blood Partial Pressure O2 36.2, Venous Blood Total Carbon Dioxide 26.1, Venous Blood HCO3 24.7, Venous Blood Oxygen Saturation 69.6, Venous Blood Base Excess -1.1, Anion Gap 8, Glomerular Filtration Rate 30.7L, Calcium Level 8.4L, Magnesium Level 2.3, Ferritin 6867H, Total Bilirubin 0.6, Aspartate Amino Transf ( AST/SGOT) 89H, Alanine Aminotransferase (ALT/SGPT) 52, Alkaline Phosphatase 92, Troponin I 0.04, Total Protein 6.5, Albumin 1.9L, Albumin/Globulin Ratio 0.4L, Procalcitonin 1.13 01/02/21 11:33: Bedside Glucose (Misc Panel) 149H CBC/BMP Laboratory Tests 01/01/21 21:52 01/02/21 05:51 Microbiology Microbiology 01/02/21 Blood Culture, Received Pending 01/01/21 Respiratory Virus Panel (PCR) ([facility]) - Final, Complete SARS-CoV-2 (COVID 19) 01/01/21 Blood Culture, Received Pending Angelia Bhatia MD Jan 02, 2021 16:11
[2021-01-02] MEDS: cefTRIAXone SOD 1 GM in D5W MINI-BAG PLUS 50 ML IV SCH (16:27)
[2021-01-02] MEDS ORDERED: VANCOMYCIN HCL 1,000 MG, VIAL MATE ADAPTER 1 EACH in NS 250 ML IV ONE (19:00)
[2021-01-02] MEDS ORDERED: VANCOMYCIN HCL 750 MG, VIAL MATE ADAPTER 1 EACH in NS 250 ML IV ONE (20:00)
[2021-01-02] MEDS: METOPROLOL TART 25 MG TABLET PO SCH (20:50)
[2021-01-03] MEDS: SODIUM CHLORIDE 0.9% INJ 10 ML SYR IV SCH (05:19)
[2021-01-03] MEDS: REMDESIVIR 100 MG in NS 250 ML IV SCH (05:19)
[2021-01-03 05:39] VITALS: BP 148/65
[2021-01-03 08:02] LABS: HEMATOCRIT 35.1 % (36.0-47.0); HEMOGLOBIN 11.4 g/dl (12.0-15.5); MEAN CORPUSCULAR HEMOGLOBIN 31.1 pg (27.0-33.0); MEAN CORPUSCULAR HGB CONC 32.5 g/dl (32.0-36.5); MEAN CORPUSCULAR VOLUME 95.9 fl (80.0-96.0); PLATELET COUNT, AUTOMATED 180 10^3/uL (150-450); RED BLOOD COUNT 3.66 10^6/uL (4.00-5.40); WHITE BLOOD COUNT 4.9 10^3/uL (4.0-10.0)
[2021-01-03 08:19] LABS: ALBUMIN 1.8 GM/DL (3.2-5.2); BILIRUBIN,DIRECT 0.2 MG/DL (0.0-0.2); BILIRUBIN,TOTAL 0.4 MG/DL (0.2-1.0); CALCIUM LEVEL 8.7 MG/DL (8.8-10.2); CREATININE FOR GFR 1.72 MG/DL (0.55-1.30); GLOMERULAR FILTRATION RATE 31.3 (>45); MAGNESIUM LEVEL 2.5 MG/DL (1.8-2.4); POTASSIUM SERUM 3.7 MEQ/L (3.5-5.1); TOTAL PROTEIN 6.2 GM/DL (6.4-8.2)
[2021-01-03 08:43] LABS: ATYPICAL LYMPH 3 % (0-5); LYMPHOCYTES 11 % (16-44); MONOCYTES 4 % (0-5); NEUTROPHILS 82 % (28-66)
[2021-01-03 08:44] LABS: PLATELET ESTIMATE NORMAL (NORMAL)
[2021-01-03] MEDS: METOPROLOL TART 25 MG TABLET PO SCH ×3 (09:00→22:43)
[2021-01-03] MEDS ORDERED: ENOXAPARIN 40MG/0.4ML SYRINGE (J1650 PER 10MG) SC SCH (09:00)
[2021-01-03] MEDS: LEVOTHYROXINE 150MCG TABLET (0.15MG) PO SCH (09:38)
[2021-01-03] MEDS: ATORVASTATIN 10 MG TAB PO SCH (09:38)
[2021-01-03] MEDS: dexameTHASONE 4 MG/ML 1ML VIAL (J1100 PER 1MG) IV SCH (09:38)
[2021-01-03] MEDS: ASPIRIN 81MG ENTERIC TABLET PO SCH (09:39)
[2021-01-03] MEDS: allopurinoL 100 MG TAB PO SCH (09:39)
[2021-01-03] MEDS: EZETIMIBE 10MG TABLET (ZETIA) PO SCH (09:39)
[2021-01-03] MEDS: FERROUS SULFATE 325MG TAB PO SCH (09:39)
[2021-01-03] MEDS: PANTOPRAZOLE 40MG TAB (PROTONIX) PO SCH ×2 (09:39→22:44)
[2021-01-03] MEDS: CLOPIDOGREL 75 MG TAB PO SCH (09:39)
[2021-01-03] MEDS: ISOSORBIDE MON. (IMDUR) 30 MG XR TAB PO SCH (09:44)
[2021-01-03] MEDS: AMITRIPTYLINE 25MG TABLET PO SCH (09:45)
[2021-01-03] MEDS: LEVEMIR (INSULIN DETEMIR) 1 UNITS/0.01ML SC SCH (09:54)
[2021-01-03] MEDS: HumaLOG INSULIN (NovoLOG) PER UNIT SC SCH ×4 (09:55→21:00)
[2021-01-03 14:00] VITALS: BP 110/53
--- NOTE | 2021-01-03 15:15 | IPNPDOC ---
Subjective Date Seen The patient was seen on 01/03/21. Subjective Chief Complaint/HPI Patient does not feel well today. She is extremely tired and weak. She has been sleeping most of the day. Her oxygen requirement has increased from 4 L to 10 L. Very poor appetite and poor oral and Objective Physical Examination General Exam: Positive: Alert, Cooperative, No Acute Distress Eye Exam: Positive: PERRLA, Conjunctiva & lids normal, EOMI; Negative: Sclera icteric ENT Exam: Positive: Atraumatic, Mucous membr. moist/pink, Pharynx Normal Neck Exam: Positive: Supple; Negative: JVD, thyromegaly Chest Exam: Positive: Other (Bilateral diffuse crackles); Negative: Rhonchi, Wheezing Heart Exam: Positive: Rate Normal, Regular Rhythm, Normal S1, Normal S2; Negative: Murmurs, Rubs Abdomen Exam: Positive: Normal bowel sounds, Soft; Negative: Tenderness Extremity Exam: Negative: Clubbing, Cyanosis, Edema Skin Exam: Positive: Nl turgor and temperature; Negative: Rash, Breakdown Psych Exam: Positive: Memory Intact, Oriented x 3 Assessment /Plan Assessment This is a 70 y/o female with a pmh of PAD, CKD, DM, CHF, premature cad in her 20s s/p multiple stents, htn, gout, dvt, cervical ca, gerd, hld, hypothyroidism who presented to our ED on 01/01 with a cc of sob for approx 1 week. Patient tested positive for covid19 with imaging indicative of pneumonia. Patient acutely requiring 4L supplemental o2. Patient admitted for Covid pneumonia and hypoxia COVID pneumonia with acute hypoxic respiratory failure Continue remdesevir/dexamethasone. Dexamethasone doses is increased as the patient has been having worsening oxygenation with increased oxygen requirement up to 10 L now Procalcitonin is elevated at 1.26 started on ceftriaxone and vancomycin 1/ 2 bottles positive for gram-positive cocci in clusters. MRSA PCR screen is negative so will DC vancomycin Awake pronation as tolerated, incentive spirometry Duonebs for sx relief Tylenol for fevers Acute metabolic encephalopathy Likely due to hypoxia and medications Improved We will discontinue Ambien, gabapentin, will hold amitriptyline if sedated or confused CKD Stage IV Baseline creatinine about 1.7-2 Creatinine appears to be at baseline We will hold KATRIN inhibitor and Lasix because of low blood pressure DM2 Continue Levemir and lispro hold gabapentin for now d/t mentation CAD continue isosorbide, plavix, statin History CHF patient not in acute exacerbation Has poor intake at this point We will hold Lasix for now HTN Blood pressure low normal Will discontinue enalapril, metoprolol lowered dose with hold parameter HLD continue atorvastatin, zetia Hypothyroidism continue synthroid GERD continue protonix Gout continue allopurinol Plan/VTE VTE Prophylaxis Ordered?: Yes VS, I&O, 24H, Fishbone Vital Signs/I&O Vital Signs Date Time Temp Pulse Resp B/P (MAP) Pulse Ox O2 Delivery O2 Flow Rate FiO2 01/03/21 09:44 160/77 01/03/21 09:00 64 01/03/21 05:39 96.0 20 96 High Flow Cannula 10.0 I&O- Last 24 Hours up to 6 AM 01/03/21 06:00 Intake Total 1140 ml Output Total 1175 ml Balance -35 ml Laboratory Data 24H LABS Laboratory Tests 2 01/02/21 16:44: Methicillin-Resist S.aureus DNA PCR NOT DETECTED 01/02/21 18:11: Bedside Glucose (Misc Panel) 174H 01/02/21 20:44: Bedside Glucose (Misc Panel) 151H 01/03/21 07:08: Immature Granulocyte % (Auto) , Neutrophils (%) (Auto) , Nucleated Red Blood Cells % (auto) 0.0, Neutrophils 82H, Lymphocytes (Manual) 11L, Monocytes (Manual) 4, Atypical Lymphocytes 3, Red Blood Cell Morphology NORMAL, Platelet Estimate NORMAL, Anion Gap 6L, Glomerular Filtration Rate 31.3L, Calcium Level 8.7L, Magnesium Level 2.5H, Total Bilirubin 0.4, Direct Bilirubin 0.2, Aspartate Amino Transf (AST/SGOT) 88H, Alanine Aminotransferase (ALT/SGPT) 61, Alkaline Phosphatase 89, Total Protein 6.2L, Albumin 1.8L, Albumin/Globulin Ratio 0.4L 01/03/21 12:24: Bedside Glucose (Misc Panel) 149H CBC/BMP Laboratory Tests 01/03/21 07:08 Microbiology Microbiology 01/02/21 Blood Culture, Received Pending 01/02/21 Blood Culture - Preliminary, Resulted No growth after 24 hours . All specim... 01/01/21 Respiratory Virus Panel (PCR) ([facility]) - Final, Complete SARS-CoV-2 (COVID 19) 01/01/21 Blood Culture - Preliminary, Resulted Angelia Bhatia MD Jan 03, 2021 15:15
--- NOTE | 2021-01-03 17:27 | ECGEPIP ---
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
[2021-01-03] MEDS: cefTRIAXone SOD 1 GM in D5W MINI-BAG PLUS 50 ML IV SCH (17:28)
[2021-01-03] MEDS ORDERED: VANCOMYCIN HCL 750 MG, VIAL MATE ADAPTER 1 EACH in NS 250 ML IV SCH (19:00)
[2021-01-03 20:00] VITALS: O2SAT 94
[2021-01-03 22:00] VITALS: BP 138/90
[2021-01-03] MEDS: ENOXAPARIN 40MG/0.4ML SYRINGE (J1650 PER 10MG) SC SCH (22:45)
[2021-01-03] MEDS: dexameTHASONE 20MG/5ML VIAL (J1100 PER 1MG) IV SCH (22:46)
[2021-01-04] VITALS (7 sets, daily range): BP systolic 142–167; BP diastolic 69–72; O2SAT 88–96
[2021-01-04] MEDS: SODIUM CHLORIDE 0.9% INJ 10 ML SYR IV SCH (05:44)
[2021-01-04] MEDS: REMDESIVIR 100 MG in NS 250 ML IV SCH (05:44)
[2021-01-04 06:59] LABS: HEMATOCRIT 37.1 % (36.0-47.0); HEMOGLOBIN 12.3 g/dl (12.0-15.5); MEAN CORPUSCULAR HEMOGLOBIN 31.5 pg (27.0-33.0); MEAN CORPUSCULAR HGB CONC 33.2 g/dl (32.0-36.5); MEAN CORPUSCULAR VOLUME 94.9 fl (80.0-96.0); PLATELET COUNT, AUTOMATED 253 10^3/uL (150-450); RED BLOOD COUNT 3.91 10^6/uL (4.00-5.40); WHITE BLOOD COUNT 9.7 10^3/uL (4.0-10.0)
[2021-01-04 07:11] LABS: INR 1.28; PROTHROMBIN TIME 16.4 SECONDS (12.7-14.5)
[2021-01-04 07:12] LABS: PARTIAL THROMBOPLASTIN TIME 45.5 SECONDS (25.9-37.0)
[2021-01-04] MEDS: HumaLOG INSULIN (NovoLOG) PER UNIT SC SCH ×4 (07:30→21:00)
[2021-01-04 07:44] LABS: ALBUMIN 1.9 GM/DL (3.2-5.2); BILIRUBIN,DIRECT 0.2 MG/DL (0.0-0.2); BILIRUBIN,TOTAL 0.5 MG/DL (0.2-1.0); CALCIUM LEVEL 9.1 MG/DL (8.8-10.2); CREATININE FOR GFR 1.72 MG/DL (0.55-1.30); GLOMERULAR FILTRATION RATE 31.3 (>45); MAGNESIUM LEVEL 2.3 MG/DL (1.8-2.4); POTASSIUM SERUM 4.1 MEQ/L (3.5-5.1); TOTAL PROTEIN 6.4 GM/DL (6.4-8.2); TROPONIN I 0.03 NG/ML (< 0.10)
[2021-01-04 08:23] LABS: ATYPICAL LYMPH 2 % (0-5); LYMPHOCYTES 12 % (16-44); METAMYELOCYTES 4 % (0-0); MONOCYTES 2 % (0-5); MYELOCYTES 3 % (0-0); NEUTROPHILS 77 % (28-66)
[2021-01-04 08:24] LABS: PLATELET ESTIMATE NORMAL (NORMAL)
[2021-01-04] MEDS: LEVEMIR (INSULIN DETEMIR) 1 UNITS/0.01ML SC SCH (09:00)
[2021-01-04] MEDS: dexameTHASONE 20MG/5ML VIAL (J1100 PER 1MG) IV SCH ×2 (09:58→19:59)
[2021-01-04] MEDS: ENOXAPARIN 40MG/0.4ML SYRINGE (J1650 PER 10MG) SC SCH ×2 (09:58→19:59)
[2021-01-04] MEDS: ASPIRIN 81MG ENTERIC TABLET PO SCH (09:58)
[2021-01-04] MEDS: CLOPIDOGREL 75 MG TAB PO SCH (09:59)
[2021-01-04] MEDS: AMITRIPTYLINE 25MG TABLET PO SCH (09:59)
[2021-01-04] MEDS: PANTOPRAZOLE 40MG TAB (PROTONIX) PO SCH ×2 (09:59→19:58)
[2021-01-04] MEDS: ATORVASTATIN 10 MG TAB PO SCH (09:59)
[2021-01-04] MEDS: EZETIMIBE 10MG TABLET (ZETIA) PO SCH (09:59)
[2021-01-04] MEDS: FERROUS SULFATE 325MG TAB PO SCH (10:00)
[2021-01-04] MEDS: allopurinoL 100 MG TAB PO SCH (10:00)
[2021-01-04] MEDS: ISOSORBIDE MON. (IMDUR) 30 MG XR TAB PO SCH (10:09)
[2021-01-04] MEDS: METOPROLOL TART 25 MG TABLET PO SCH ×2 (10:10→20:19)
[2021-01-04] MEDS: LEVOTHYROXINE 150MCG TABLET (0.15MG) PO SCH (11:10)
--- NOTE | 2021-01-04 13:23 | IPNPDOC ---
Subjective Date Seen The patient was seen on 01/04/21. Subjective Chief Complaint/HPI Patient is confused this morning. Her oxygen requirement has progressively increased and right now she is on Vapotherm needing 40 L/90%. She complains of feeling cold and is very shaky. Very poor oral intake. Spoke with patient's [id number] Patricia and updated her about the patient's condition. I also got her son's number and have placed it in the EMR. Objective Physical Examination General Exam: Positive: Alert, Cooperative, Mild Distress, Other (Confused, tremulous, with conversational dyspnea) Eye Exam: Positive: PERRLA; Negative: Sclera icteric ENT Exam: Positive: Atraumatic, Mucous membr. moist/pink, Pharynx Normal Neck Exam: Positive: Supple; Negative: JVD, thyromegaly Chest Exam: Positive: Diminished, Other (Bilateral diffuse crackles); Negative: Rhonchi, Wheezing Heart Exam: Positive: Rate Normal, Regular Rhythm, Normal S1, Normal S2; Negative: Murmurs, Rubs Abdomen Exam: Positive: Normal bowel sounds, Soft; Negative: Tenderness Extremity Exam: Negative: Clubbing, Cyanosis, Edema Skin Exam: Negative: Rash, Breakdown Assessment /Plan Assessment This is a 70 y/o female with a pmh of PAD, CKD, DM, CHF, premature cad in her 20s s/p multiple stents, htn, gout, dvt, cervical ca, gerd, hld, hypothyroidism who presented to our ED on 01/01 with a cc of sob for approx 1 week. Patient tested positive for covid19 with imaging indicative of pneumonia. Patient acutely requiring 4L supplemental o2. Patient admitted for Covid pneumonia and hypoxia COVID pneumonia with acute hypoxic respiratory failure Continue remdesevir/dexamethasone. Procalcitonin is elevated at 1.26 started on ceftriaxone 1/ 2 bottles positive for gram-positive cocci in clusters. MRSA PCR screen is negative . Staph hemolyticus Unable to pronate Albuterol and DuoNebs. Acute metabolic encephalopathy Again worsened this a.m. confused. Likely due to hypoxia and medications We will discontinue Ambien, gabapentin, will hold amitriptyline if sedated or confused CKD Stage IV Baseline creatinine about 1.7-2 Creatinine appears to be at baseline We will hold KATRIN inhibitor and Lasix Very poor oral intake. If creatinine starts to worsen will probably need some IV fluid DM2 Continue Levemir and lispro hold gabapentin for now d/t mentation CAD continue isosorbide, plavix, statin History CHF patient not in acute exacerbation Has poor intake at this point We will hold Lasix for now HTN Blood pressure low normal Will discontinue enalapril, metoprolol lowered dose with hold parameter HLD continue atorvastatin, zetia Hypothyroidism continue synthroid GERD continue protonix Gout continue allopurinol Plan/VTE VTE Prophylaxis Ordered?: Yes VS, I&O, 24H, Fishbone Vital Signs/I&O Vital Signs Date Time Temp Pulse Resp B/P (MAP) Pulse Ox O2 Delivery O2 Flow Rate FiO2 01/04/21 12:01 96.4 53 20 150/69 (96) 92 HVNI-Vapotherm 40.0 90 I&O- Last 24 Hours up to 6 AM 01/04/21 06:00 Intake Total 480 ml Output Total 1500 ml Balance -1020 ml Laboratory Data 24H LABS Laboratory Tests 2 01/03/21 17:11: Bedside Glucose (Misc Panel) 148H 01/03/21 17:45: Vancomycin Level Trough 16.4 01/03/21 21:55: Bedside Glucose (Misc Panel) 134H 01/04/21 05:43: Bedside Glucose (Misc Panel) 170H 01/04/21 06:00: Immature Granulocyte % (Auto) , Neutrophils (%) (Auto) , Nucleated Red Blood Cells % (auto) 0.0, Neutrophils 77H, Lymphocytes (Manual) 12L, Monocytes (Manual) 2, Metamyelocytes 4H, Myelocytes 3H, Atypical Lymphocytes 2, Red Blood Cell Morphology NORMAL, Platelet Estimate NORMAL, Prothrombin Time 16.4H, Pr othromb Time International Ratio 1.28, Activated Partial Thromboplast Time 45.5H, Fibrinogen 498H, Anion Gap 7L, Glomerular Filtration Rate 31.3L, Calcium Level 9.1, Magnesium Level 2.3, Ferritin 6959H, Total Bilirubin 0.5, Direct Bilirubin 0.2, Aspartate Amino Transf (AST/SGOT) 72H, Alanine Aminotransferase (ALT/SGPT) 60, Alkaline Phosphatase 88, Lactate Dehydrogenase 515H, Total Creatine Kinase 76#, Troponin I 0.03, UI-Bsy-E-Type Natriuretic Peptide 1962H, Total Protein 6.4, Albumin 1.9L, Albumin/Globulin Ratio 0.4L 01/04/21 11:59: Bedside Glucose (Misc Panel) 227H CBC/BMP Laboratory Tests 01/04/21 06:00 Microbiology Microbiology 01/02/21 Blood Culture - Preliminary, Resulted No growth after 24 hours . All specim... 01/02/21 Blood Culture - Preliminary, Resulted No Growth after 48 hours. All Specime... 01/01/21 Respiratory Virus Panel (PCR) ([facility]) - Final, Complete SARS-CoV-2 (COVID 19) 01/01/21 Blood Culture - Final, Complete Staphylococcus Haemolyticus Angelia Bhatia MD Jan 04, 2021 13:23
[2021-01-04] MEDS: ALBUTEROL SULFATE 2.5 MG/0.5 ML INH NEB SOLN NEB SCH ×2 (14:00→20:35)
[2021-01-04] MEDS: cefTRIAXone SOD 1 GM in D5W MINI-BAG PLUS 50 ML IV SCH (17:14)
[2021-01-04] MEDS: ACETAMINOPHEN TAB 650MG DOSE (2X325MG) PO PRN (22:24)
[2021-01-05] VITALS (7 sets, daily range): BP systolic 129–169; BP diastolic 62–84
[2021-01-05] MEDS: ALBUTEROL SULFATE 2.5 MG/0.5 ML INH NEB SOLN NEB SCH ×4 (01:57→18:13)
[2021-01-05] MEDS: ACETAMINOPHEN TAB 650MG DOSE (2X325MG) PO PRN ×4 (03:59→11:05)
[2021-01-05] MEDS: REMDESIVIR 100 MG in NS 250 ML IV SCH (05:11)
[2021-01-05] MEDS: LEVOTHYROXINE 150MCG TABLET (0.15MG) PO SCH (05:11)
[2021-01-05] MEDS: SODIUM CHLORIDE 0.9% INJ 10 ML SYR IV SCH (07:51)
[2021-01-05] MEDS: HumaLOG INSULIN (NovoLOG) PER UNIT SC SCH ×4 (07:52→23:06)
[2021-01-05 08:37] LABS: HEMATOCRIT 36.5 % (36.0-47.0); MEAN CORPUSCULAR HEMOGLOBIN 31.5 pg (27.0-33.0); MEAN CORPUSCULAR HGB CONC 32.9 g/dl (32.0-36.5); MEAN CORPUSCULAR VOLUME 95.8 fl (80.0-96.0); PLATELET COUNT, AUTOMATED 287 10^3/uL (150-450); RED BLOOD COUNT 3.81 10^6/uL (4.00-5.40); WHITE BLOOD COUNT 9.4 10^3/uL (4.0-10.0)
[2021-01-05] MEDS: ONDANSETRON 4MG/2ML VIAL IV PRN (08:52)
[2021-01-05] MEDS: dexameTHASONE 20MG/5ML VIAL (J1100 PER 1MG) IV SCH ×2 (08:55→22:51)
[2021-01-05] MEDS: ASPIRIN 81MG ENTERIC TABLET PO SCH (08:57)
[2021-01-05] MEDS: ISOSORBIDE MON. (IMDUR) 30 MG XR TAB PO SCH (08:57)
[2021-01-05] MEDS: CLOPIDOGREL 75 MG TAB PO SCH (08:57)
[2021-01-05] MEDS: FERROUS SULFATE 325MG TAB PO SCH (08:57)
[2021-01-05] MEDS: ATORVASTATIN 10 MG TAB PO SCH (08:58)
[2021-01-05] MEDS: allopurinoL 100 MG TAB PO SCH (08:58)
[2021-01-05] MEDS: EZETIMIBE 10MG TABLET (ZETIA) PO SCH (08:58)
[2021-01-05] MEDS: AMITRIPTYLINE 25MG TABLET PO SCH (08:58)
[2021-01-05] MEDS: PANTOPRAZOLE 40MG TAB (PROTONIX) PO SCH ×2 (08:58→22:50)
[2021-01-05] MEDS: LEVEMIR (INSULIN DETEMIR) 1 UNITS/0.01ML SC SCH (08:59)
[2021-01-05] MEDS: ENOXAPARIN 40MG/0.4ML SYRINGE (J1650 PER 10MG) SC SCH ×2 (08:59→22:51)
[2021-01-05] MEDS: METOPROLOL TART 25 MG TABLET PO SCH (09:09)
[2021-01-05 09:10] LABS: CALCIUM LEVEL 8.5 MG/DL (8.8-10.2); CREATININE FOR GFR 1.78 MG/DL (0.55-1.30); GLOMERULAR FILTRATION RATE 30.1 (>45); MAGNESIUM LEVEL 2.1 MG/DL (1.8-2.4); POTASSIUM SERUM 4.1 MEQ/L (3.5-5.1)
[2021-01-05 09:50] LABS: ANISOCYTOSIS 1+; ATYPICAL LYMPH 2 % (0-5); LYMPHOCYTES 10 % (16-44); METAMYELOCYTES 4 % (0-0); MONOCYTES 5 % (0-5); MYELOCYTES 2 % (0-0); NEUTROPHILS 75 % (28-66); PLATELET ESTIMATE NORMAL (NORMAL)
[2021-01-05] MEDS ORDERED: NS 500 ML IV ONE (11:00)
--- NOTE | 2021-01-05 11:03 | IPNPDOC ---
Subjective Date Seen The patient was seen on 01/05/21. Subjective Chief Complaint/HPI Remains about the same, confused, very weak and tired. Very poor oral intake. Remains on vapotherm Objective Physical Examination General Exam: Positive: Alert, Cooperative, Mild Distress, Other (Confused, tremulous, with conversational dyspnea) Eye Exam: Positive: PERRLA; Negative: Sclera icteric ENT Exam: Positive: Atraumatic, Mucous membr. moist/pink, Pharynx Normal Neck Exam: Positive: Supple; Negative: JVD, thyromegaly Chest Exam: Positive: Diminished, Other (Bilateral diffuse crackles); Negative: Rhonchi, Wheezing Heart Exam: Positive: Rate Normal, Regular Rhythm, Normal S1, Normal S2; Negative: Murmurs, Rubs Abdomen Exam: Positive: Normal bowel sounds, Soft; Negative: Tenderness Extremity Exam: Negative: Clubbing, Cyanosis, Edema Skin Exam: Negative: Rash, Breakdown Assessment /Plan Assessment This is a 70 y/o female with a pmh of PAD, CKD, DM, CHF, premature cad in her 20s s/p multiple stents, htn, gout, dvt, cervical ca, gerd, hld, hypothyroidism who presented to our ED on 01/01 with a cc of sob for approx 1 week. Patient tested positive for covid19 with imaging indicative of pneumonia. Patient acutely requiring 4L supplemental o2. Patient admitted for Covid pneumonia and hypoxia COVID pneumonia with acute hypoxic respiratory failure Continue remdesevir/dexamethasone. Procalcitonin is elevated at 1.26 started on ceftriaxone 1/ 2 bottles positive for gram-positive cocci in clusters. MRSA PCR screen is negative . Staph hemolyticus Unable to pronate Albuterol and DuoNebs. Acute metabolic encephalopathy due to hypoxia and medications We will discontinue Ambien, gabapentin, will hold amitriptyline if sedated or confused CKD Stage IV Baseline creatinine about 1.7-2 Creatinine appears to be at baseline We will hold KATRIN inhibitor and Lasix Very poor oral intake. will give a small bolus of fluid DM2 Continue Levemir and lispro hold gabapentin for now d/t mentation CAD continue isosorbide, plavix, statin History CHF patient not in acute exacerbation Has poor intake at this point We will hold Lasix for now HTN continue metoprolol HLD continue atorvastatin, zetia Hypothyroidism continue synthroid GERD continue protonix Gout continue allopurinol Plan/VTE VTE Prophylaxis Ordered?: Yes VS, I&O, 24H, Fishbone Vital Signs/I&O Vital Signs Date Time Temp Pulse Resp B/P (MAP) Pulse Ox O2 Delivery O2 Flow Rate FiO2 01/05/21 08:01 89 HVNI-Vapotherm 30.0 80 01/05/21 07:58 98.0 80 22 169/84 (112) I&O- Last 24 Hours up to 6 AM 01/05/21 06:00 Intake Total 595 ml Output Total 450 ml Balance 145 ml Laboratory Data 24H LABS Laboratory Tests 2 01/04/21 11:59: Bedside Glucose (Misc Panel) 227H 01/04/21 16:44: Bedside Glucose (Misc Panel) 188H 01/04/21 19:53: Bedside Glucose (Misc Panel) 241H 01/05/21 07:35: Anion Gap 11, Glomerular Filtration Rate 30.1L, Calcium Level 8.5L, Magnesium Level 2.1 01/05/21 07:36: Immature Granulocyte % (Auto) , Neutrophils (%) (Auto) , Nucleated Red Blood Cells % (auto) 0.2H, Neutrophils 75H, Band Neutrophils 2, Lymphocytes (Manual) 10L, Monocytes (Manual) 5, Metamyelocytes 4H, Myelocytes 2H, Atypical Lymphocytes 2, Anisocytosis 1+, Platelet Estimate NORMAL 01/05/21 07:50: Bedside Glucose (Misc Panel) 276H CBC/BMP Laboratory Tests 01/05/21 07:35 01/05/21 07:36 Microbiology Microbiology 01/02/21 Blood Culture - Preliminary, Resulted No Growth after 48 hours. All Specime... 01/02/21 Blood Culture - Preliminary, Resulted No Growth after 72 hours. All specime... 01/01/21 Respiratory Virus Panel (PCR) ([facility]) - Final, Complete SARS-CoV-2 (COVID 19) 01/01/21 Blood Culture - Final, Complete Staphylococcus Haemolyticus Angelia Bhatia MD Jan 05, 2021 11:03
[2021-01-05] MEDS: cefTRIAXone SOD 1 GM in D5W MINI-BAG PLUS 50 ML IV SCH (16:57)
[2021-01-05] MEDS ORDERED: traMADol 50 MG TAB PO PRN (18:40)
[2021-01-05] MEDS ORDERED: METOPROLOL TART 50 MG TAB PO SCH (21:00)
[2021-01-05] MEDS ORDERED: KETOROLAC 30 MG/ML 1ML VIAL IV ONE (23:30)
[2021-01-06] VITALS (66 sets, daily range): BP systolic 66–165; BP diastolic 38–121
[2021-01-06 01:00] LABS: AMYLASE 40 U/L (25-115); LIPASE 90 U/L (73-393)
--- NOTE | 2021-01-06 01:58 | REPVR ---
PROCEDURE INFORMATION: Exam: XR Abdomen Exam date and time: 01/05/2021 12:22 AM Age: 70 years old Clinical indication: Abdominal pain TECHNIQUE: Imaging protocol: XR of the abdomen. Views: Frontal supine view of the abdomen. 1 View. COMPARISON: CT ABD PELVIS W/O CONTRAST 01/02/2021 4:19 AM FINDINGS: Gastrointestinal tract: There is a mild amount of stool in the colon, predominantly in the descending colon. No dilated loops of bowel are noted. Organs: There are surgical clips in the right upper quadrant of the abdomen related to a cholecystectomy. Vasculature: An inferior vena cava filter is in place. There are atherosclerotic calcifications. Bones/joints: There are old healed fractures of the bilateral pubic bones and a plate and screws extending across the pubic symphysis and superior pubic rami. There is a pelvic screw traversing the left sacroiliac joint. There is partial ankylosis of both sacroiliac joints. There is mild osteoarthritis of both hips. Degenerative changes are present in the lumbar spine. IMPRESSION: No acute findings or radiographic evidence for a bowel obstruction. COMMENTS: For patients with an IVC filter, recommend assessment for a management plan for the patient's IVC filter. If there is no established management plan, recommend referral to an interventional clinician on a nonemergent basis for evaluation. Electronically signed by: Margarito Kessler On 01/06/2021 01:57:57 AM
[2021-01-06] MEDS: ALBUTEROL SULFATE 2.5 MG/0.5 ML INH NEB SOLN NEB SCH ×4 (02:10→20:37)
[2021-01-06] MEDS: ONDANSETRON 4MG/2ML VIAL IV PRN (03:24)
[2021-01-06] MEDS ORDERED: fentaNYL 100 MCG/2 ML INJECTION (J3010) IV ONE (05:25)
[2021-01-06] MEDS ORDERED: ACETAMINOPHEN *IV* 1,000 MG in IV 1 EA IV ONE ×2 (05:45→21:40)
[2021-01-06] MEDS ORDERED: NS 500 ML IV ONE (05:45)
[2021-01-06] MEDS: LEVOTHYROXINE 150MCG TABLET (0.15MG) PO SCH (05:51)
[2021-01-06] MEDS ORDERED: BISACODYL 10 MG SUPP PR ONE (06:40)
[2021-01-06 06:53] LABS: HEMATOCRIT 28.6 % (36.0-47.0); MEAN CORPUSCULAR HGB CONC 32.5 g/dl (32.0-36.5); MEAN CORPUSCULAR VOLUME 98.3 fl (80.0-96.0); RED BLOOD COUNT 2.91 10^6/uL (4.00-5.40); WHITE BLOOD COUNT 27.1 10^3/uL (4.0-10.0)
[2021-01-06 06:56] LABS: HEMOGLOBIN 9.3 g/dl (12.0-15.5); PLATELET COUNT, AUTOMATED 392 10^3/uL (150-450)
--- NOTE | 2021-01-06 07:06 | IPNPDOC ---
Text Note Date of Service The patient was seen on 01/06/21. NOTE Notified patient with abdominal pain. Patient had abdominal pain upon presentation this admission and underwent CT which was nonacute. Patient with Kaufman good output, incontinent BM today. hgb stable on lab review. 116/56 21 rr vapotherm, hr 62 98.7F Order for pain control and stat KUB. KUB nonacute. Labs without elevated lipase. She does not have a gallbladder. Patient improved post pain medication and sleeping. We will continue to monitor Update: Patient unfortunately with worsening abdominal discomfort. Kaufman appears to be draining minimal volume with bladder scan. Updated vitals to determine if additional pain medication prior to obtaining CT abdomen pelvis and pressure shows hypotension 80/40. Stat bolus, lactic and AM labs to be drawn. Pt seen at bedside and writhing. Ofirmev given. She points to suprapubic area regarding her pain. She does have superficial bruising to abdomen, some notable hardness along intestinal pattern to abdomen. She is uncomfortable and limited in describing pain. Kaufman removed to determine if kinked- then replaced without further output. BP improving to 86/50. Suppository ordered. Plan for CT once pt BP improves as pain out of proportion to exam. VS,Fishbone, I+O VS, Fishbone, I+O Laboratory Tests 01/05/21 07:35 01/05/21 07:36 Vital Signs Date Time Temp Pulse Resp B/P (MAP) Pulse Ox O2 Delivery O2 Flow Rate FiO2 01/06/21 05:25 98.5 71 22 80/40 (53) 98 HVNI-Vapotherm 30.0 85 I&O- Last 24 Hours up to 6 AM 01/06/21 05:59 Intake Total 1440 ml Output Total 1250 ml Balance 190 ml NOVA MAHER NP Jan 06, 2021 07:06
[2021-01-06 07:09] LABS: PARTIAL THROMBOPLASTIN TIME 37.7 SECONDS (25.9-37.0)
[2021-01-06 07:13] LABS: INR 1.4; PROTHROMBIN TIME 17.6 SECONDS (12.7-14.5)
[2021-01-06] MEDS ORDERED: cefTRIAXone SOD 1 GM in D5W MINI-BAG PLUS 50 ML IV ONE (07:20)
[2021-01-06 07:57] LABS: LYMPHOCYTES 11 % (16-44); METAMYELOCYTES 1 % (0-0); MONOCYTES 5 % (0-5); MYELOCYTES 2 % (0-0); NEUTROPHILS 73 % (28-66); PLASMA CELL 1 % (0-0)
[2021-01-06 07:58] LABS: PLATELET ESTIMATE NORMAL (NORMAL)
[2021-01-06 07:59] LABS: SCHISTOCYTES 1+
[2021-01-06 08:00] LABS: OVALOCYTES 1+; PLATELET CLUMPS SMALL AMT; SMUDGE CELLS 1+
[2021-01-06 08:34] LABS: ALBUMIN 1.9 GM/DL (3.2-5.2); BILIRUBIN,DIRECT 0.3 MG/DL (0.0-0.2); BILIRUBIN,TOTAL 0.7 MG/DL (0.2-1.0); CALCIUM LEVEL 7.7 MG/DL (8.8-10.2); CREATININE FOR GFR 2.84 MG/DL (0.55-1.30); GLOMERULAR FILTRATION RATE 17.5 (>45); MAGNESIUM LEVEL 2.1 MG/DL (1.8-2.4); TOTAL PROTEIN 5.2 GM/DL (6.4-8.2); TROPONIN I 0.02 NG/ML (< 0.10)
--- NOTE | 2021-01-06 08:54 | REP ---
INDICATION: abd pain, hgb drop COMPARISON: 01/02/2021 TECHNIQUE: Axial noncontrast images from the lung bases to the pubic symphysis with coronal and sagittal reformations. This CT examination was performed using the following dose reduction techniques: Automated exposure control, adjustment of mA and/or kv according to the patient's size, and use of iterative reconstruction technique. FINDINGS: There is evidence for multiple acute areas of hematoma. Specifically, there is a hematoma distending the right rectus muscle which measures 8.7 x 4.5 cm maximal transverse/AP diameter and roughly 12 cm in craniocaudal length. There is also right retroperitoneal hematoma with multiple components including a large component along the right hemipelvis extending into the deep pelvis measuring roughly 10.5 x 8.2 x 9.5 cm and a 2nd component extending into the ischiorectal fossa which measures roughly 6.3 x 5.3 cm diameter and 15 cm in craniocaudal length. Hemorrhagic/inflammatory stranding through the surrounding retroperitoneal fat and smaller foci of hemorrhage within the pelvis are also identified. Liver, spleen, pancreas, bilateral adrenal glands and left kidney are normal. Patient appears to be status post right nephrectomy. IVC filter identified in satisfactory position. The enteric system is grossly unremarkable and without obstruction or obvious acute inflammatory process. No evidence for pneumoperitoneum. Further evaluation of the pelvis demonstrates Kaufman catheter in collapsed bladder. Atherosclerotic changes to the aorta and vasculature noted without aneurysm. Musculoskeletal structures demonstrate degenerative changes and prior fixation for pelvic fractures. Lung bases demonstrate scattered ground-glass opacities suggesting early atelectasis. IMPRESSION: 1. Multiple new moderate to large areas of retroperitoneal hematoma including hematoma involving the right rectus muscle/sheath. 2. Pulmonary parenchymal opacities suggesting early atelectasis/pneumonia. 3. Further findings as above. <Electronically signed by Emanuel Edgar > 01/06/21 [id number]
[2021-01-06] MEDS ORDERED: MORPHINE 4 MG/ML 1ML VIAL/SYRINGE (J2270) IV PRN (09:15)
[2021-01-06] MEDS: ASPIRIN 81MG ENTERIC TABLET PO SCH (09:44)
[2021-01-06] MEDS: allopurinoL 100 MG TAB PO SCH (09:45)
[2021-01-06] MEDS: dexameTHASONE 20MG/5ML VIAL (J1100 PER 1MG) IV SCH (09:45)
[2021-01-06] MEDS: HumaLOG INSULIN (NovoLOG) PER UNIT SC SCH ×4 (09:50→21:00)
[2021-01-06] MEDS: LEVEMIR (INSULIN DETEMIR) 1 UNITS/0.01ML SC SCH (09:50)
[2021-01-06] MEDS: NS 1,000 ML IV SCH ×2 (09:54→17:31)
[2021-01-06] MEDS: PIPERACILLIN/TAZOBACTAM SOD 2.25 GM in D5W MINI-BAG PLUS 50 ML IV SCH ×2 (10:00→19:30)
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
[2021-01-06] MEDS ORDERED: PROTAMINE SULF 50MG/5ML VIAL (J2720 PER 10MG) IV STA (11:06)
[2021-01-06] MEDS ORDERED: NS 1,000 ML IV ONE (11:30)
[2021-01-06 12:17] LABS: HEMATOCRIT 27.1 % (36.0-47.0); HEMOGLOBIN 8.7 g/dl (12.0-15.5)
[2021-01-06] MEDS ORDERED: HALOPERIDOL 5MG/ML VIAL (J1630 PER 1) IM STA (13:13)
[2021-01-06] MEDS ORDERED: HALOPERIDOL 5MG/ML VIAL (J1630 PER 1) As Ordered ONE (13:15)
[2021-01-06] MEDS ORDERED: DESMOPRESSIN ACETATE IV ONE (14:00)
[2021-01-06] MEDS ORDERED: NS IV ONE (14:00)
[2021-01-06] MEDS: PANTOPRAZOLE 40MG VIAL (C9113 PER 1) IV SCH ×2 (16:58→21:00)
--- NOTE | 2021-01-06 17:16 | CR.PDOC ---
General Date of Consultation: Jan 06, 2021 Referring Provider: Angelia Bhatia MD Attending Physician: Angelia Bhatia MD Consultation REASON FOR CONSULTATION/CHIEF COMPLAINT: Hemorrhagic shock and retroperitoneal hemorrhage. HISTORY OF PRESENT ILLNESS: This is a 70-year-old female with past medical history of coronary artery disease status post stenting more than a year ago, hypertension, gout, cervical cancer, diabetes, DVT status post IVC filter, hyperlipidemia, hypothyroidism, chronic kidney disease stage IV, solitary kidney who was admitted to the hospital on January 02, 2021 with hypoxic respiratory failure secondary to COVID-19 ARDS. Patient was initially on medical surgical floor requiring Vapotherm. She was also being treated with remdesivir, Decadron and baricitinib. She was also getting Lovenox. This morning she was complaining of abdominal pain. Because of the drop in hemoglobin she had a CT scan of the abdomen and pelvis done which shows multiple large retroperitoneal hematomas and rectus hematoma. She was profoundly hypotensive and went into ROSA on CKD. There was also evidence of lactic acidosis. Therefore critical care was consulted for further recommendation. Patient is severely agitated and unable to follow any meaningful commands. ALLERGIES: Please see below. HOME MEDICATIONS: Please see below. PAST MEDICAL HISTORY: See HPI PAST SURGICAL HISTORY: 1. [Right nephrectomy]. 2. [Cholecystectomy]. 3. [Hysterectomy 4. Left knee replacement x2]. SOCIAL HISTORY: Tobacco use:[Former] FAMILY HISTORY: Unable to obtain d/t mentation REVIEW OF SYSTEMS: Unable to obtain as patient is uncooperative and very agitated. PHYSICAL EXAMINATION: VITAL SIGNS: Please see below. GENERAL APPEARANCE: Chronically ill-appearing. In mild distress HEENT: No evidence of JVD or cervical adenopathy. RESPIRATORY: Inspiratory coarse crackles. CARDIOVASCULAR: Normal heart sounds with S1-S2 with possible S3. No evidence of murmur ABDOMEN: Tender to palpation but soft with active bowel sounds. EXTREMITIES: No evidence of pedal edema. Back surgical scar on the right knee NEUROLOGICAL: Nonfocal. PSYCHIATRIC: Unable to assess. LABORATORY DATA: Please see below. ASSESSMENT/PLAN: This is a 70-year-old female with past medical history of coronary artery disease status post stenting more than a year ago, hypertension, gout, cervical cancer, diabetes, DVT status post IVC filter, hyperlipidemia, hypothyroidism, chronic kidney disease stage IV, solitary kidney who was admitted to the hospital on January 02, 2021 with hypoxic respiratory failure secondary to COVID- 19 ARDS. During the hospitalization, patient developed spontaneous retroperitoneal and intra-abdominal hematoma in the setting of coagulopathy. 1. Hypovolemic/hemorrhagic shock 2. Metabolic encephalopathy 3. ROSA on CKD stage IV 4. Lactic acidosis 5. Retroperitoneal and intra-abdominal hemorrhage 6. Coagulopathy secondary to aspirin/Plavix use with Lovenox for COVID-19 7. Coronary artery disease status post stents more than a year ago 8. Solitary kidney 9. Hypoxic respiratory failure secondary to COVID-19 ARDS #Hypovolemic/hemorrhagic shock secondary to retroperitoneal or intra-abdominal hemorrhage -Patient is currently receiving blood and blood product transfusion. Underlying coagulopathy has been reversed by administering DDAVP and protamine sulfate. Family decided to proceed with medical therapy before considering IR guided embolization as contrast administration may worsen her underlying renal failure and she may end up on dialysis. -Hold all aspirin/Plavix/Lovenox #Metabolic encephalopathy -Secondary to underlying shock and renal failure -Frequent reorientation #Lactic acidosis -Secondary to hemorrhagic shock. Trend lactate every 4 hours to assess for adequacy of volume resuscitation. #ROSA on CKD stage IV -This is due to ongoing shock. We will continue to monitor urine output and kidney function. Hopefully she does not have to work hemodialysis. #Coagulopathy -Antiplatelet effect will be reversed with DDAVP and Lovenox effects will be reversed with protamine sulfate. In addition patient is getting blood products. #Hypoxic respiratory failure secondary to COVID-19 ARDS -Continue with remdesivir, Decadron, baricitinib. Hold off further anticoagulation in the setting of hemorrhagic/hypovolemic shock. -Encourage self proning if able. DVT prophylaxis: SCD GI prophylaxis: Not indicated Prognosis: Remains guarded. Patient is extremely critical. Critical care time excluding procedure is 60 minutes. Vital Signs/I&O Vital Signs Date Time Temp Pulse Resp B/P (MAP) Pulse Ox O2 Delivery O2 Flow Rate FiO2 01/06/21 16:28 97.4 74 28 114/69 95 HVNI-Vapotherm 30.0 65 I&O- Last 24 Hours up to 6 AM 01/06/21 06:00 Intake Total 1440 ml Output Total 1250 ml Balance 190 ml Laboratory Data Labs 24H Laboratory Tests 2 01/05/21 16:59: Bedside Glucose (Misc Panel) 269H 01/05/21 23:05: Bedside Glucose (Misc Panel) 155H 01/06/21 00:32: Amylase Level 40, Lipase 90 01/06/21 04:34: Bedside Glucose (Misc Panel) 261H 01/06/21 06:34: Immature Granulocyte % (Auto) , Neutrophils (%) (Auto) , Nucleated Red Blood Cells % (auto) 0.4H, Neutrophils 73H, Band Neutrophils 7, Lymphocytes (Manual) 11L, Monocytes (Manual) 5, Metamyelocytes 1H, Myelocytes 2H, Plasma Cells 1H, Schistocytes 1+, Ovalocytes 1+, Smudge Cells 1+, Platelet Estimate NORMAL, Clumped Platelets SMALL AMT, Prothrombin Time 17.6H, Prothromb Time International Ratio 1.40, Activated Partial Thromboplast Time 37.7, Fibrinogen 345, Anion Gap 13, Glomerular Filtration Rate 17.5L, Lactic Acid Level 6.0*H, Calcium Level 7.7L, Magnesium Level 2.1, Ferritin 7524H, Total Bilirubin 0.7, Direct Bilirubin 0.3H, Aspartate Amino Transf (AST/SGOT) 54H, Alanine Aminotransferase (ALT/SGPT) 56, Alkaline Phosphatase 73, Lactate Dehydrogenase 467H, Total Creatine Kinase 83, Troponin I 0.02, OS-Kly-X-Type Natriuretic Peptide 8336H, Total Protein 5.2L, Albumin 1.9L, Albumin/Globulin Ratio 0.6L 01/06/21 12:07: Lactic Acid Followup at 4 Hours 7.8*H CBC/BMP Laboratory Tests 01/06/21 06:34 01/06/21 12:07 Microbiology Microbiology 01/06/21 Stool Occult Blood ([facility]) - Final, Complete 01/06/21 Blood Culture, Received Pending 01/02/21 Blood Culture - Preliminary, Resulted No Growth after 72 hours. All specime... 01/02/21 Blood Culture - Preliminary, Resulted No Growth after 72 hours. All specime... 01/01/21 Respiratory Virus Panel (PCR) ([facility]) - Final, Complete SARS-CoV-2 (COVID 19) 01/01/21 Blood Culture - Final, Complete Staphylococcus Haemolyticus Allergies Coded Allergies: Macrolide Antibiotics (Verified Allergy, Unknown, 12/23/19) Penicillins (Verified Allergy, Unknown, 12/23/19) Quinolones (Verified Allergy, Unknown, 02/01/20) codeine (Verified Allergy, Unknown, 12/23/19) erythromycin base (Verified Allergy, Unknown, 12/23/19) morphine (Verified Allergy, Unknown, 12/23/19) nitroglycerin (Verified Allergy, Unknown, PATCHES, 02/01/20) ranolazine (Verified Allergy, Unknown, 02/01/20) telithromycin (Verified Allergy, Unknown, 12/23/19) Home Medications Scheduled Allopurinol (Allopurinol) 100 Mg Tablet, 100 MG PO DAILY, (Reported) Amitriptyline HCl (Amitriptyline HCl) 25 Mg Tablet, 25 MG PO DAILY, (Reported) Atorvastatin Calcium (Atorvastatin Calcium) 10 Mg Tablet, 10 MG PO DAILY, (Reported) Cholecalciferol (Vitamin D3) (Vitamin D3) 1,000 Unit Tablet, 1,000 UNITS PO DAILY, (Reported) Clopidogrel Bisulfate (Clopidogrel) 75 Mg Tablet, 75 MG PO DAILY, (Reported) Colestipol HCl (Colestipol HCl) 1 Gm Tablet, 1 GM PO BID, (Reported) Enalapril Maleate (Enalapril Maleate) 5 Mg Tablet, 5 MG PO BID, (Reported) Ezetimibe (Ezetimibe) 10 Mg Tablet, 10 MG PO DAILY, (Reported) Ferrous Sulfate (Iron) 325 Mg Tablet, 65 MG PO DAILY, (Reported) Furosemide (Furosemide) 80 Mg Tablet, 80 MG PO BID, (Reported) Gabapentin (Gabapentin) 300 Mg Capsule, 300 MG PO TID, (Reported) Insulin Glargine,Hum.rec.anlog (Basaglar Kwikpen U-100) 100 Unit/1 Ml Insuln.pen, 20 UNIT SC DAILY, (Reported) Isosorbide Mononitrate (Isosorbide Mononitrate ER) 30 Mg Tab.er.24h, 30 MG PO DAILY, (Reported) Levothyroxine Sodium (Levothyroxine Sodium) 150 Mcg Tablet, 150 MCG PO DAILY, (Reported) Melatonin (Melatonin) 5 Mg Capsule, 5 MG PO QHS, (Reported) Metoprolol Tartrate (Metoprolol Tartrate) 50 Mg Tablet, 50 MG PO BID, (Reported) Pantoprazole Sodium (Pantoprazole Sodium) 40 Mg Tablet.dr, 40 MG PO DAILY, (Reported) Scheduled PRN Zolpidem Tartrate (Zolpidem Tartrate) 5 Mg Tablet, 5 MG PO QPMP PRN for sleep, (Reported) Miscellaneous Medications [med rec comment] , (Reported) pt. unaware of med names or doses or last dosage taken,used external med history OMARI BURGOS MD Jan 06, 2021 16:41
--- NOTE | 2021-01-06 17:20 | ROOPDOC ---
[facility] Report Of Operation Report of Operation DATE OF PROCEDURE: 01/06/21 PROCEDURE PERFORMED: Attempted right IJ central venous catheter. Right tibial interosseous catheter insertion. PREPROCEDURE DIAGNOSES: Hemorrhagic/hypovolemic shock, lack of IV access. POSTPROCEDURE DIAGNOSES: Hemorrhagic/hypovolemic shock, lack of IV access. Consent obtained: From son Lionel Encinas SURGEON: Dr. Rafita MD ANESTHESIA: Local anesthesia with 1% lidocaine. ESTIMATED BLOOD LOSS: Approximately none mL. COMPLICATIONS: None. DESCRIPTION OF PROCEDURE: Patient was noncooperative with the central venous catheter insertion as she is extremely agitated and moving around. Therefore cannulation was not attempted for central venous catheter insertion. Her right tibial bone was prepped with chlorhexidine. 1.5 inch intraosseous needle was used to drill into the bone marrow of the right tibia. IV connector was connected and bone marrow was aspirated from the tibia. 2 cc of lidocaine was injected into the tibia for anesthetic effect. There was blood draw and interosseal line and was able to be flushed. Patient tolerated procedure with no evidence of complication. OMARI BURGOS MD Jan 06, 2021 17:20
[2021-01-06] MEDS: REMDESIVIR 100 MG in NS 250 ML IV SCH (18:20)
[2021-01-06 19:18] LABS: HEMATOCRIT 27.1 % (36.0-47.0)
[2021-01-06] MEDS: SODIUM CHLORIDE 0.9% INJ 10 ML SYR IV SCH (19:20)
[2021-01-07] VITALS (29 sets, daily range): BP systolic 88–139; BP diastolic 52–97
[2021-01-07 00:21] LABS: HEMATOCRIT 26.1 % (36.0-47.0); HEMOGLOBIN 8.8 g/dl (12.0-15.5)
[2021-01-07] MEDS: PIPERACILLIN/TAZOBACTAM SOD 2.25 GM in D5W MINI-BAG PLUS 50 ML IV SCH ×3 (01:40→17:16)
[2021-01-07] MEDS ORDERED: fentaNYL 100 MCG/2 ML INJECTION (J3010) IV ONE ×2 (02:00→11:00)
[2021-01-07] MEDS ORDERED: PERCOCET 5MG/325MG TAB PO ONE (04:05)
[2021-01-07] MEDS ORDERED: AMIODARONE HCL 150 MG in IV 1 EA IV SCH (05:10)
--- NOTE | 2021-01-07 05:11 | IPNPDOC ---
Text Note Date of Service The patient was seen on 01/07/21. NOTE Time of service 505AM Per d/w RN Andres the patient appears to be in rapid Afib w a rate in the 130s. There doesn't appear to be a pre-existing hx of Afib We will order an EKG, troponin, BNP and Mag w morning labs and give one dose of amiodarone. LATE ENTRY 618AM EKG reviewed & afib was confirmed We are unable to give her AC bc she has retroperitoneal hematomas VS,Mata, I+O VS, [place], I+O Laboratory Tests 01/06/21 06:34 HERNAN PEREZ MD Jan 07, 2021 05:11
[2021-01-07] MEDS: LEVOTHYROXINE 150MCG TABLET (0.15MG) PO SCH (05:37)
[2021-01-07] MEDS: NS 1,000 ML IV SCH ×2 (05:37→15:52)
[2021-01-07 07:14] LABS: HEMATOCRIT 23.5 % (36.0-47.0); HEMOGLOBIN 7.8 g/dl (12.0-15.5); MEAN CORPUSCULAR HEMOGLOBIN 30.7 pg (27.0-33.0); MEAN CORPUSCULAR HGB CONC 33.2 g/dl (32.0-36.5); MEAN CORPUSCULAR VOLUME 92.5 fl (80.0-96.0); PLATELET COUNT, AUTOMATED 228 10^3/uL (150-450); RED BLOOD COUNT 2.54 10^6/uL (4.00-5.40); WHITE BLOOD COUNT 29.4 10^3/uL (4.0-10.0)
--- NOTE | 2021-01-07 07:19 | CR ---
CONSULTATION DATE: 01/06/2021 REQUESTING PHYSICIAN: Angelia Bhatia MD CONSULTING PHYSICIAN: Jorge A Callaway M.D. REASON FOR CONSULTATION: Management of acute renal failure superimposed on chronic kidney disease. CHIEF COMPLAINT: The patient was admitted to [place] [address] isolation unit on January 02, 2021 because of COVID-19 pneumonia. HISTORY OF PRESENT ILLNESS: Note history was obtained from the medical team and from patient's chart. She is unable to provide any significant medical history at this time. Agatha Arreguin is a 70-year-old female with past medical history of chronic kidney disease stage 3/stage 4 with a baseline creatinine of around 1.7, solitary functioning left kidney, status post right nephrectomy in the past, history of coronary artery disease, status post stenting, hypertensive, congestive heart failure, type 2 diabetic, multiple other comorbidities as mentioned below. She presented to the hospital on January 01 with shortness of breath. She was found to have COVID-19 pneumonia and because of COVID-19, ARDS, she was admitted in the isolation unit. She was started on Remdesivir, IV Decadron and baricitinib and she was also getting anticoagulation with aspirin, Plavix and Lovenox. Patient started complaining of abdominal pain and our hemoglobin level was dropping today morning so a CT scan of the abdomen and pelvis was done which showed multiple retroperitoneal hematomas and rectus sheath hematoma. Of note because of the abdominal pain, the patient was given a dose of IV Toradol overnight as well. The patient became oliguric today and her creatinine is rising and because of the solitary functioning kidney, nephrology service was called for further help in the management of this patient. The patient needed my immediate attention. I saw the patient in [place] [address] isolation unit. When I went in the room, the patient was very agitated and restless. She had thrown away her Vapotherm nasal cannula and patient had also pulled her IV lines. Nursing staff was trying to resuscitate her but there was no line available. The patient had an indwelling Kaufman catheter when I saw her and there was a very small amount of urine in the bag. PAST MEDICAL HISTORY: 1. Chronic kidney disease stage 4. 2. Solitary functioning left kidney. 3. Hypothyroidism. 4. DVT, status post IVC filter. 5. History of CA of the cervix. 6. Type 2 diabetic. 7. Chronic gout. 8. Hypertension. 9. Hyperlipidemia. PAST SURGICAL HISTORY: 1. Status post right nephrectomy. 2. Status post cholecystectomy. 3. History of hysterectomy in the past. 4. Left knee replacement x2. ALLERGIES: She is allergic to macrolides, penicillins, quinolones, codeine, morphine, nitroglycerine, ranolazine and telithromycin. FAMILY HISTORY: Unable to obtain. SOCIAL HISTORY: The patient is a former smoker. The rest of the social history was not obtainable. REVIEW OF SYSTEMS: Constitutional: The patient reports feeling very weak and tired. Eyes: She denies any blurry vision, double vision. ENT: She denies any ear, nose or throat pain. Cardiovascular: She denies any chest pain. Respiratory: The patient reports shortness of breath and she was agitated.. GI: She reports abdominal pain. Genitourinary: She has an indwelling Kaufman catheter. Hematological/Oncological: The patient has active retroperitoneal hematomas. CLINICAL DOCUMENTATION SPECIALIST: The patient seems agitated. The rest of the review of systems was no obtainable. PHYSICAL EXAMINATION: GENERAL: The patient is awake, agitated, follows a few commands. VITAL SIGNS: When I saw her in the morning, her temperature was 97.5 degrees Fahrenheit. Blood pressure was 88/49, pulse 76, respiratory rate of 30, saturating 94% on 65% FiO2. HEAD AND NECK: Extraocular muscles are intact. Pupils are equally round and reactive to light. Mucous membranes are dry. Neck is supple, there is no JVD. CARDIOVASCULAR: S1, S2, regular rate. EXTREMITIES: No edema of the bilateral lower extremities. RESPIRATORY: Mild expiratory crackles because of COVID-19 pneumonia and she is Vapotherm. ABDOMEN: Moderately tender, distended. Multiple bruises in the abdominal wall are noted. GENITOURINARY: She has an indwelling Kaufman catheter. In the diaper, the patient was found to have melanotic stools. MUSCULOSKELETAL: No clubbing or stenosis at this time. CLINICAL DOCUMENTATION SPECIALIST: Patient is agitated. She follows a few commands. LAB REVIEW: CBC showed a WBC of 27.1, hemoglobin of 9.3, platelets of 392. Her hemoglobin was 12 yesterday. INR was 1.4 in the morning with a PTT of 345. BMP done today morning showed sodium 140, potassium 5, chloride 108, bicarbonate 19, BUN 65, creatinine of 2.8. Lactic acid was 6, calcium 7.7. Microbiology: Fecal occult blood is positive. Blood cultures are negative so far. COVID-19 is positive. IMAGING: A CT scan of the abdomen and pelvis was done today morning which showed multiple new moderate to large areas of retroperitoneal hematoma including hematoma involving the right rectus sheath. Pulmonary parenchymal opacities suggesting early pneumonia and solitary functioning left kidney. CURRENT INPATIENT MEDICATIONS: 1. IV Tylenol. 2. Rocephin 1 gm IV. 3. DDAVP one dose was given. 4. She is getting normal saline boluses along with NS at 100 mL an hour. 5. Zosyn 2.25 gm IV q.8 hourly. 6. Remdesivir 100 mg IV daily. 7. Albuterol. 8. DuoNeb nebulizations. 9. Allopurinol 100 mg p.o. daily. 10. She was on aspirin, Plavix, atorvastatin which have been stopped now. 11. She was also getting Lovenox 40 mg subcu twice a day which has been stopped. 12. Zetia has been stopped. 13. Iron tablet has been stopped. 14. She is on Decadron 10 mg IV daily. 15. One dose of Haldol was given. 16. She is on insulin, Levemir, insulin sliding scale. 17. Imdur has been stopped. 18. Patient was given one dose of IV Toradol 50 mg last night. 19. Metoprolol has been stopped. 20. Morphine p.r.n. for pain. 21. Protonix 40 mg IV twice a day. 22. Protamine 20 mg IV stat was given. ASSESSMENT AND PLAN: 1. Acute oliguric renal failure. Patient has a baseline CKD 3/CKD 4, baseline creatinine of 1.7 during this hospitalization. Oliguric renal is secondary to a combination of hemorrhagic shock and use of Toradol last night. Patient needs aggressive IV fluid hydration, resuscitation with blood. We need to keep systolic blood pressure above 70. If she remains oliguric, we might need to start the patient on dialysis. However, at this point, patient needs to be just resuscitated and there is no urgent need of hemodialysis. 2. Hemorrhagic shock. Patient got DDAVP. Aspirin, Plavix and Lovenox have been stopped. She was given protamine. Transfuse p.r.n. for hemoglobin less than 8. The rest of the management is as per critical care team. 3. Acute hypoxic respiratory failure secondary to COVID-19 pneumonia. Patient is on Vapotherm. She is on Decadron, Remdesivir as per COVID-19 protocol. 4. Diabetes mellitus type 2. Okay to continue insulin sliding scale and Levemir. Reduce the dose if patient is not eating much. Avoid use of metformin in acute renal failure. 5. Chronic gout secondary to chronic kidney disease. The patient has acute renal failure. I am going to stop the allopurinol at this time. 6. Melena. Patient is most likely have GI bleed as well with the use of aspirin, Plavix and Lovenox. She has been started on IV Protonix. 7. Lactic acidosis. It is secondary to hemorrhagic shock. Continue IV fluid hydration. No need of IV bicarb administration at this time. Check the VBG in the morning. Thank you for involving me in the care of this patient. I shall be happy to follow the patient along with you tomorrow morning. Patient is being emergently transferred to ICU. Total critical care time spent in the management of this patient today morning in the [facility]- isolation unit was 1 hour and 30 minutes excluding all the procedures. MTDD
[2021-01-07 07:43] LABS: ALBUMIN 1.9 GM/DL (3.2-5.2); CALCIUM LEVEL 7.1 MG/DL (8.8-10.2); CREATININE FOR GFR 3.86 MG/DL (0.55-1.30); GLOMERULAR FILTRATION RATE 12.3 (>45); MAGNESIUM LEVEL 2.1 MG/DL (1.8-2.4); PHOSPHORUS LEVEL 5.9 MG/DL (2.5-4.9); POTASSIUM SERUM 4.7 MEQ/L (3.5-5.1); TROPONIN I 0.03 NG/ML (< 0.10)
[2021-01-07 07:48] LABS: LYMPHOCYTES 6 % (16-44); METAMYELOCYTES 1 % (0-0); MONOCYTES 2 % (0-5); MYELOCYTES 1 % (0-0); NEUTROPHILS 88 % (28-66)
[2021-01-07 07:50] LABS: ANISOCYTOSIS 1+; SCHISTOCYTES 1+
[2021-01-07 07:51] LABS: TEAR DROP CELLS 1+
[2021-01-07 07:53] LABS: OVALOCYTES 1+; PLATELET ESTIMATE NORMAL (NORMAL)
[2021-01-07] MEDS: PANTOPRAZOLE 40MG VIAL (C9113 PER 1) IV SCH ×2 (08:43→20:23)
[2021-01-07] MEDS: allopurinoL 100 MG TAB PO SCH (08:43)
[2021-01-07] MEDS: dexameTHASONE 20MG/5ML VIAL (J1100 PER 1MG) IV SCH (08:44)
[2021-01-07] MEDS: HumaLOG INSULIN (NovoLOG) PER UNIT SC SCH ×4 (08:45→20:00)
[2021-01-07] MEDS ORDERED: DIGOXIN INJ 0.5 MG/2 ML AMP (J1160) IV ONE ×2 (08:45→13:25)
[2021-01-07] MEDS: LEVEMIR (INSULIN DETEMIR) 1 UNITS/0.01ML SC SCH (08:45)
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
[2021-01-07] MEDS: ALBUTEROL SULFATE 2.5 MG/0.5 ML INH NEB SOLN NEB SCH (09:22)
--- NOTE | 2021-01-07 12:45 | ROOPDOC ---
[facility] Report Of Operation Report of Operation DATE OF PROCEDURE: 01/07/21 PROCEDURE PERFORMED: Right femoral central venous catheter insertion PREPROCEDURE DIAGNOSES: Hemorrhagic/hypovolemic shock, lack of IV access. POSTPROCEDURE DIAGNOSES: Hemorrhagic/hypovolemic shock, lack of IV access. Consent obtained: From son Lionel Encinas SURGEON: Dr. Rafita MD ANESTHESIA: Local anesthesia with 1% lidocaine. ESTIMATED BLOOD LOSS: Approximately 1 mL. COMPLICATIONS: None. DESCRIPTION OF PROCEDURE: A time out was performed. My hands were washed immediately prior to the procedure. I wore a surgical cap, mask with protective eyewear, sterile gown and sterile gloves throughout the procedure. The LEFT/ RIGHT inguinal region was prepped using chlorhexidine scrub and draped in sterile fashion using a full drape and sterile probe cover and sterile gel employed. The femoral pulse and femoral vein was identified using the ultrasound. Anesthesia was achieved using 1% lidocaine. Palpating the femoral pulse throughout the procedure and femoral vein was visualized under the ultrasound, the introducer needle was inserted medial to the femoral artery, inferior to the inguinal crease and into the femoral vein. Venous blood was withdrawn. The syringe was removed and a guidewire was advanced into the introducer needle. A small incision was made at the skin surface with a scalpel and the introducer needle was exchanged for a dilator over the guidewire. After appropriate dilation was obtained, the dilator was exchanged over the wire for a triple lumen central venous catheter. The wire was removed and the catheter was sutured in place at 20 cm. A sterile sorbaview shield was placed over the catheter at the insertion site. The patient tolerated the procedure without any hemodynamic compromise. At time of procedure completion, all ports aspirated and flushed properly. Estimated blood loss is 1cc. OMARI BURGOS MD Jan 06, 2021 17:20 OMARI BURGOS MD Jan 07, 2021 12:45
[2021-01-07] MEDS ORDERED: ALBUTEROL 90 MCG/ACT 8GM HFA INHALER INH PRN (13:40)
[2021-01-07 14:09] LABS: HEMATOCRIT 28.7 % (36.0-47.0); HEMOGLOBIN 9.6 g/dl (12.0-15.5)
--- NOTE | 2021-01-07 14:10 | IPNPDOC ---
Subjective Date Seen The patient was seen on 01/07/21. Subjective Chief Complaint/HPI Patient is more alert today but still remain partially confused. I believe she is in ICU delirium. She denies of pain. General: Reports: ROS Unobtainable Objective Physical Examination General Exam: Positive: No Acute Distress, Other (Tremulous in pain, confused) Eye Exam: Positive: PERRLA; Negative: Sclera icteric ENT Exam: Positive: Atraumatic, Mucous membr. moist/pink, Pharynx Normal Neck Exam: Positive: Supple; Negative: JVD, thyromegaly Chest Exam: Positive: Diminished, Other (Bilateral diffuse crackles); Negative: Rhonchi, Wheezing Heart Exam: Positive: Tachycardic, Irregular Rhythm, Normal S1, Normal S2; Negative: Murmurs, Rubs Telemetry: Positive: Atrial fibrillation Abdomen Exam: Positive: Normal bowel sounds, Soft, Tenderness (in the lower abdomen) Extremity Exam: Negative: Clubbing, Cyanosis, Edema Skin Exam: Negative: Rash, Breakdown Assessment /Plan Assessment This is a 70-year-old female with past medical history of coronary artery disease status post stenting more than a year ago, hypertension, gout, cervical cancer, diabetes, DVT status post IVC filter, hyperlipidemia, hypothyroidism, chronic kidney disease stage IV, solitary kidney who was admitted to the hospital on January 02, 2021 with hypoxic respiratory failure secondary to COVID- 19 ARDS. During the hospitalization, patient developed spontaneous retroperitoneal and intra-abdominal hematoma in the setting of coagulopathy. 1. Hypovolemic/hemorrhagic shock 2. Metabolic encephalopathy 3. ROSA on CKD stage IV 4. Lactic acidosis 5. Retroperitoneal and intra-abdominal hemorrhage 6. Coagulopathy secondary to aspirin/Plavix use with Lovenox for COVID-19 7. Coronary artery disease status post stents more than a year ago 8. Solitary kidney 9. Hypoxic respiratory failure secondary to COVID-19 ARDS 10. New onset of atrial fibrillation with RVR Plan/VTE VTE Prophylaxis Ordered?: Yes Plan #Hypovolemic/hemorrhagic shock secondary to retroperitoneal or intra-abdominal hemorrhage -This has been stable as patient underlying coagulopathy has been reversed and she is currently getting blood and blood products. Hemoglobin is still slowly downtrending however I believe it is equilibrating. #Metabolic encephalopathy and ICU delirium -Secondary to underlying shock and renal failure -Frequent reorientation #Lactic acidosis -Secondary to hemorrhagic shock. Shock state has been resolved. #ROSA on CKD stage IV -This is due to ongoing shock. She was oliguric in the last 24 hours however recently she started making urine. We will continue to monitor her urine output and repeat renal function later this afternoon. Nephrology on board in case if she needs to be dialyzed. Currently, there is no emergent indication for hemodialysis. #Coagulopathy -Antiplatelet and Lovenox fracture-reversed with DDAVP and protamine sulfate, respectively. #Hypoxic respiratory failure secondary to COVID-19 ARDS -Continue with remdesivir, Decadron, baricitinib. Hold off further antic oagulation in the setting of hemorrhagic/hypovolemic shock. -Encourage self proning if able. -Continue with Vapotherm. She is currently on 25 L/min, 55% FiO2. #New onset of atrial fibrillation with RVR -She received a dose of beta-ajit without any response. She is currently receiving digitalis. This is likely due to stress response. I believe it is going to be transient once her underlying acute medical conditions are stabilized. DVT prophylaxis: SCD GI prophylaxis: Not indicated Prognosis: Remains guarded. Patient remains critical. Her son Lionel Encinas has been updated. Critical care time excluding procedure is 30 minutes. Disposition Continue ICU monitoring. VS, I&O, 24H, Fishbone Vital Signs/I&O Vital Signs Date Time Temp Pulse Resp B/P (MAP) Pulse Ox O2 Delivery O2 Flow Rate FiO2 01/07/21 13:49 101 01/07/21 11:34 96.2 17 123/94 95 HVNI-Vapotherm 25.0 45 I&O- Last 24 Hours up to 6 AM 01/07/21 06:00 Intake Total 3856 ml Output Total 84 ml Balance 3772 ml Laboratory Data 24H LABS Laboratory Tests 2 01/06/21 17:28: Bedside Glucose (Misc Panel) 255H 01/06/21 20:29: Bedside Glucose (Misc Panel) 237H 01/07/21 06:55: Immature Granulocyte % (Auto) , Neutrophils (%) (Auto) , Nucleated Red Blood Cells % (auto) 0.7H, Neutrophils 88H, Band Neutrophils 2, Lymphocytes (Manual) 6L, Monocytes (Manual) 2, Metamyelocytes 1H, Myelocytes 1H, Anisocytosis 1+, Schistocytes 1+, Tear Drop Cells 1+, Ovalocytes 1+, Platelet Estimate NORMAL, Anion Gap 11, Glomerular Filtration Rate 12.3L, Calcium Level 7.1L, Phosphorus Level 5.9H, Magnesium Level 2.1, Troponin I 0.03#, KF-Yuy-L-Type Natriuretic Peptide 4249H, Albumin 1.9L 01/07/21 12:05: Bedside Glucose (Misc Panel) 229H CBC/BMP Laboratory Tests 01/06/21 19:07 01/06/21 23:52 01/07/21 06:55 Microbiology Microbiology 01/06/21 Stool Occult Blood ([facility]) - Final, Complete 01/06/21 Blood Culture - Preliminary, Resulted No growth after 24 hours . All specim... 01/02/21 Blood Culture - Preliminary, Resulted No Growth after 72 hours. All specime... 01/02/21 Blood Culture - Final, Complete NO GROWTH AFTER 5 DAYS 01/01/21 Respiratory Virus Panel (PCR) ([facility]) - Final, Complete SARS-CoV-2 (COVID 19) 01/01/21 Blood Culture - Final, Complete Staphylococcus Haemolyticus OMARI BURGOS MD Jan 07, 2021 14:10
[2021-01-07] MEDS ORDERED: METOPROLOL 5 MG/5 ML VIAL IV STA (15:59)
[2021-01-07 18:34] LABS: HEMATOCRIT 28.6 % (36.0-47.0); HEMOGLOBIN 9.6 g/dl (12.0-15.5)
--- NOTE | 2021-01-07 22:50 | IPNPDOC ---
Subjective CC/HPI The patient is a 70-year-old female admitted with a reason for visit of Pneumonia Due To Covid-19 Virus. Events since last encounter Pt was seen at bedside in ICU. She was transferred here due to hemorrhagic Shock and COVID ARDS. She didn't have a central. Rt Leg IO line was placed. s/p PRBS and FFP transfusion. BP is better now. She is still on vapotherm requiring 45% FiO2. Pt just started making urine this AM. General: Reports: Fatigue; Denies: Chills, Night Sweats Constitutional: Reports: Malaise; Denies: Chills Eyes: Reports: Pain; Denies: Vision change ENT: Denies: Head Aches, Ear Pain Skin: Reports: Lesions; Denies: Rash Pulmonary: Reports: Dyspnea, Cough Cardiovascular: Denies: Chest Pain, Palpitations Gastrointestinal: Reports: Abdominal Pain; Denies: Nausea, Vomiting Genitourinary: Reports: Other Symptoms (Kaufman) Hematologic: Reports: Bruising, Petecchia, Purpura Musculoskeletal: Reports: Back Pain; Denies: Neck Pain Neurological: Reports: Weakness Psych: Reports: Anxiety Objective Physical Examination General Exam: Cooperative, Mild Distress EYE EXAM: PERRLA, Conjunctiva & lids normal, EOMI ENT EXAM: Atraumatic, Mucous membr. moist/pink Neck Exam: Supple; No: JVD Chest Exam: Rales, Other (Requiring vapotherm due to COVID ARDS.) Heart Exam: Rate Normal; No: Murmurs, Rubs ABDOMEN EXAM: Normal bowel sounds, Soft, Tenderness (Rectus sheath hematoma. Abdominal wall bruises.) Extremity Exam: No: Clubbing, Cyanosis, Edema Skin Exam: Nl turgor and temperature, Lesion (echymosis); No: Rash Neuro Exam: Strength at 5/5 X4 ext Psych Exam: Anxiety; No: Oriented x 3 (Oriented x 2) Vital Signs/I&O Vital Signs Date Time Temp Pulse Resp B/P (MAP) Pulse Ox O2 Delivery O2 Flow Rate FiO2 01/07/21 20:00 91 HVNI-Vapotherm 10.0 35 01/07/21 20:00 97.0 73 20 139/64 (89) I&O- Last 24 Hours up to 6 AM 01/07/21 06:00 Intake Total 3856 ml Output Total 84 ml Balance 3772 ml Laboratory Data Labs 24H Laboratory Tests 2 01/07/21 06:55: Immature Granulocyte % (Auto) , Neutrophils (%) (Auto) , Nucleated Red Blood Cells % (auto) 0.7H, Neutrophils 88H, Band Neutrophils 2, Lymphocytes (Manual) 6L, Monocytes (Manual) 2, Metamyelocytes 1H, Myelocytes 1H, Anisocytosis 1+, Schistocytes 1+, Tear Drop Cells 1+, Ovalocytes 1+, Platelet Estimate NORMAL, Anion Gap 11, Glomerular Filtration Rate 12.3L, Calcium Level 7.1L, Phosphorus Level 5.9H, Magnesium Level 2.1, Troponin I 0.03#, DG-Xey-U-Type Natriuretic Peptide 4249H, Albumin 1.9L 01/07/21 12:05: Bedside Glucose (Misc Panel) 229H 01/07/21 17:12: Bedside Glucose (Misc Panel) 158H 01/07/21 19:35: Bedside Glucose (Misc Panel) 119H CBC/BMP Laboratory Tests 01/06/21 23:52 01/07/21 06:55 01/07/21 13:45 01/07/21 18:09 FSBS Laboratory Tests Test 01/07/21 12:05 01/07/21 17:12 01/07/21 19:35 Range/Units Bedside Glucose (Misc Panel) 229 158 119 80-115 MG/DL Current Medications Current Medications Medications (Trade) Dose Ordered Sig/Berna Route PRN Reason Start Time Stop Time Status Last Admin Dose Admin Acetaminophen (Tylenol Tab) 650 mg Q4HP PRN PO mild pain/fever 01/02/21 03:45 01/05/21 08:58 Albuterol Sulfate (Proventil Neb) 2.5 mg RQ6H NEB 01/04/21 14:00 01/07/21 13:40 DC 01/06/21 20:37 Albuterol Sulfate (Proventil, Ventolin Hfa) 2 puff Q6HP PRN INH SHORTNESS OF BREATH 01/07/21 13:40 Albuterol/ Ipratropium (Duoneb (Ipr 0.5mg/Alb 2.5mg)) 3 ml Q4HP PRN NEB sob 01/02/21 03:45 01/07/21 13:40 DC 01/07/21 01:14 Allopurinol (Zyloprim) 100 mg DAILY PO 01/02/21 09:00 01/07/21 08:43 Amiodarone HCl 150 mg/IV Miscellaneous Supplies 100 ml @ 600 mls/hr NOW IV 01/07/21 05:10 01/07/21 05:19 DC 01/07/21 05:37 Amitriptyline HCl (Elavil) 25 mg DAILY PO 01/02/21 09:00 01/06/21 09:24 DC 01/05/21 08:58 Aspirin (Ecotrin) 81 mg DAILY PO 01/02/21 09:00 01/06/21 10:15 DC 01/06/21 09:44 Atorvastatin Calcium (Lipitor) 10 mg DAILY PO 01/02/21 09:00 01/06/21 07:25 DC 01/05/21 08:58 Ceftriaxone Sodium 1 gm/ Dextrose 50 ml @ 100 mls/hr Q24H IV 01/02/21 17:00 01/06/21 07:35 DC 01/05/21 16:57 Clopidogrel Bisulfate (PLAVix) 75 mg DAILY PO 01/02/21 09:00 01/06/21 09:24 DC 01/05/21 08:57 Dexamethasone (Decadron) 6 mg DAILY IV 01/02/21 09:00 01/03/21 15:10 DC 01/03/21 09:38 Dexamethasone (Decadron) 10 mg BID IV 01/03/21 21:00 01/06/21 10:15 DC 01/06/21 09:45 Dexamethasone (Decadron) 10 mg DAILY IV 01/07/21 09:00 01/07/21 08:44 Dextrose (Dextrose 50%) 25 ml ASDIRECTED PRN IV SEE LABEL COMMENTS 01/02/21 03:45 Enalapril Maleate (Vasotec) 5 mg BID PO 01/02/21 09:00 01/02/21 07:02 DC Enoxaparin Sodium (Lovenox) 40 mg BID SC 01/03/21 21:00 01/06/21 09:24 DC 01/05/21 22:51 Enoxaparin Sodium (Lovenox) 40 mg Q24H SC 01/02/21 09:00 01/02/21 16:07 DC 01/02/21 08:27 Enoxaparin Sodium (Lovenox) 40 mg Q24H SC 01/03/21 09:00 01/03/21 19:48 DC 01/03/21 09:45 EZETIMIBE (Zetia) 10 mg DAILY PO 01/02/21 09:00 01/06/21 07:25 DC 01/05/21 08:58 Ferrous Sulfate (Ferrous Sulfate) 325 mg DAILY PO 01/02/21 09:00 01/06/21 07:25 DC 01/05/21 08:57 Furosemide (Lasix) 80 mg BID@0900,1700 PO 01/02/21 09:00 01/02/21 07:02 DC Gabapentin (Neurontin) 300 mg TID PO 01/02/21 09:00 01/02/21 05:16 DC Glucagon (Glucagon) 1 mg ASDIRECTED PRN SC SEE LABEL COMMENTS 01/02/21 03:45 Glucose (Glucose) 16 GM ASDIRECTED PRN PO SEE LABEL COMMENTS 01/02/21 03:45 Haloperidol (Haldol) 5 mg STAT STAT IM 01/06/21 13:13 01/06/21 13:18 DC 01/06/21 13:30 Home Med (Home Med List Complete!) ASDIRECTED XX 01/02/21 03:55 01/02/21 03:54 DC Insulin Detemir (Levemir Insulin) 20 units DAILY SC 01/02/21 09:00 01/07/21 08:45 Insulin Human Lispro (HumaLOG INSULIN) SEE PROTOCOL TABLE AC SC 01/02/21 07:30 01/07/21 17:16 Insulin Human Lispro (HumaLOG INSULIN) SEE PROTOCOL TABLE QHS SC 01/02/21 21:00 Isosorbide Mononitrate (Imdur) 30 mg DAILY PO 01/02/21 09:00 01/06/21 09:24 DC 01/05/21 08:57 Levothyroxine Sodium (Synthroid) 150 mcg DAILY PO 01/02/21 09:00 01/04/21 09:13 DC 01/03/21 09:38 Levothyroxine Sodium (Synthroid) 150 mcg DAILY@0600 PO 01/04/21 06:00 01/07/21 05:37 Metoprolol Tartrate (Lopressor) 5 mg STAT STAT IV 01/07/21 15:59 01/07/21 16:00 DC 01/07/21 16:13 Metoprolol Tartrate (Lopressor) 25 mg BID PO 01/02/21 21:00 01/05/21 11:02 DC 01/05/21 09:09 Metoprolol Tartrate (Lopressor) 50 mg BID PO 01/02/21 09:00 01/02/21 16:02 DC 01/02/21 08:29 Metoprolol Tartrate (Lopressor) 50 mg BID PO 01/05/21 21:00 01/06/21 07:25 DC 01/05/21 22:49 Morphine Sulfate (Morphine Sulfate Inj) 2 mg Q4H PRN IV PAIN LEVEL 6-10 01/06/21 09:15 Hold 01/06/21 19:20 Ondansetron HCl (ZOFRAN INJection) 4 mg Q6HP PRN IV NAUSEA OR VOMITING 01/05/21 08:25 01/06/21 03:24 Pantoprazole Sodium (Protonix) 40 mg BID IV 01/06/21 09:00 01/07/21 20:23 Pantoprazole Sodium (Protonix) 40 mg BID PO 01/03/21 21:00 01/06/21 09:24 DC 01/05/21 22:50 Pantoprazole Sodium (Protonix) 40 mg DAILY PO 01/02/21 09:00 01/03/21 15:10 DC 01/03/21 09:39 Piperacillin Sod/ Tazobactam Sod 2.25 gm/Dextrose 50 ml @ 50 mls/hr Q8H IV 01/06/21 10:00 01/07/21 17:16 Protamine Sulfate (Protamine Sulfate) 20 mg STAT STAT IV 01/06/21 11:06 01/06/21 11:11 ND 01/06/21 14:06 Remdesivir 100 mg/ Sodium Chloride 270 ml @ 270 mls/hr Q24H IV 01/03/21 06:00 01/07/21 05:59 DC 01/06/21 18:20 Sodium Chloride 1,000 ml @ 100 mls/hr Q10H IV 01/02/21 01:35 01/02/21 07:02 DC 01/02/21 01:50 Sodium Chloride 1,000 ml @ 100 mls/hr Q10H IV 01/06/21 09:15 01/07/21 15:52 Sodium Chloride (Saline Lock Flush) 30 ml Q24H IV 01/03/21 07:00 01/07/21 06:59 DC 01/06/21 19:20 Tramadol HCl (Ultram) 50 mg Q8HP PRN PO PAIN LEVEL 6-10 01/05/21 18:40 01/06/21 09:24 DC 01/05/21 18:55 Vancomycin HCl 750 mg/IV Miscellaneous Supplies 1 each/ Sodium Chloride 275 ml @ 275 mls/hr Q24H IV 01/03/21 19:00 01/04/21 10:59 DC 01/03/21 21:43 Vancomycin HCl 1000 mg/IV Miscellaneous Supplies 1 each/ Sodium Chloride 270 ml @ 270 mls/hr Q12H IV 01/02/21 16:10 01/02/21 18:05 DC Zolpidem Tartrate (Ambien) 5 mg QPMP PRN PO sleep 01/02/21 05:05 01/02/21 15:54 DC Allergies Coded Allergies: Macrolide Antibiotics (Verified Allergy, Unknown, 12/23/19) Penicillins (Verified Allergy, Unknown, 12/23/19) Quinolones (Verified Allergy, Unknown, 02/01/20) codeine (Verified Allergy, Unknown, 12/23/19) erythromycin base (Verified Allergy, Unknown, 12/23/19) morphine (Verified Allergy, Unknown, 12/23/19) nitroglycerin (Verified Allergy, Unknown, PATCHES, 02/01/20) ranolazine (Verified Allergy, Unknown, 02/01/20) telithromycin (Verified Allergy, Unknown, 12/23/19) Assessment/Plan Date Seen The patient was seen on 01/07/21 in AM in ICU. Plan / VTE VTE Prophylaxis Ordered?: Yes Plan Orders past 48 Hours Orders Fingerstick Blood Sugar (01/05/21 23:05) Portable Abdomen (Kub) (01/05/21 23:30) Ketorolac Tromethamine (Toradol) (01/05/21 23:30) Lipase (01/05/21 23:34) Amylase (01/05/21 23:34) Fingerstick Blood Sugar (01/06/21 04:34) Ua W/ Reflex To Culture (01/06/21 05:23) Lactic Acid Level, Lactate (01/06/21 05:41) Ns (Nacl 0.9%) (01/06/21 05:45) Acetaminophen *Iv* (Ofirmev) (01/06/21 05:45) Urinary Catheter DOCUMENT BID (01/06/21 06:12) Discontinue Urinary Catheter (01/06/21 06:12) Urinary Catheter Reflex Discon (01/06/21 06:12) Bisacodyl Suppository (Dulcolax Supposit (01/06/21 06:40) Type & Screen (01/06/21 07:13) Ceftriaxone Sod (Rocephin) (01/06/21 07:20) Blood Cultures (01/06/21 07:26) Ct Abd & Pelvis W/O Contrast (01/06/21 07:28) Piperacillin/Tazobactam Sod (Zosyn) (01/06/21 10:00) Off Monitor For Tests (01/06/21 07:51) Pantoprazole Sodium (Protonix) (01/06/21 09:00) Ns (Nacl 0.9%) (01/06/21 09:15) Frozen Plasma 24 (01/06/21 09:12) Transfuse Fresh Frozen Plasma (01/06/21 09:12) Surgical Consult (01/06/21 09:12) Hemoglobin & Hematocrit (01/06/21 12:00) Hemoglobin & Hematocrit (01/06/21 18:00) Hemoglobin & Hematocrit (01/07/21 00:00) Nephrology Consult (01/06/21 09:25) * Nursing Order * (01/06/21 06:30) Morphine Sulfate Inj (Morphine Sulfate I (01/06/21 09:15) Transfer (In House) (01/06/21 09:57) Director Of Assisted Living Consult (01/06/21 10:00) Dexamethasone (Decadron) (01/07/21 09:00) Transfuse Packed Cells (01/06/21 10:12) Packed Cells (01/06/21 07:41) Protamine Sulfate (Protamine Sulfate) (01/06/21 11:06) Ns (Nacl 0.9%) (01/06/21 11:30) Occult Blood Stool Specimen (01/06/21 12:09) Desmopressin Acetate (Ddavp) (01/06/21 14:00) Pheresis Platelets (01/06/21 12:29) Transfuse Platelets (01/06/21 12:29) Apply Ice To Affected Area (01/06/21 12:42) Haloperidol (Haldol) (01/06/21 13:13) Restraint-Mechanical:Medical (01/06/21 15:40) Restraint Applied/Admin Docume .APPLICATION/ADMIN (01/06/21 15:40) Restraint Monitoring-Medical Q2H (01/06/21 15:40) Restraint Studio Musician/Monito Q30M (01/06/21 15:40) Restraint-Discontinue Time (01/06/21 15:40) Fingerstick Blood Sugar (01/06/21 17:28) Fingerstick Blood Sugar (01/06/21 20:29) Acetaminophen *Iv* (Ofirmev) (01/06/21 21:40) Fentanyl Citrate (Sublimaze) (01/07/21 02:00) Oxycodone/Apap 5mg/325mg (Percocet 5mg/3 (01/07/21 04:05) Code Status (01/07/21 04:07) Electrocardiogram Adult (01/07/21 05:09) Echocard,Doppler/Color Flow (01/07/21 05:09) Code Status (01/07/21 05:09) Amiodarone Hcl (Nexterone) (01/07/21 05:10) Nt-Probnp (01/07/21 05:29) Renal Profile (01/07/21 05:29) Troponin (01/07/21 05:29) Hemoglobin & Hematocrit (01/07/21 12:00) Hemoglobin & Hematocrit (01/07/21 18:00) Differential No Charge (01/07/21 06:55) Platelet Estimate (01/07/21 06:55) Packed Cells (01/07/21 08:23) Transfuse Packed Cells (01/07/21 08:23) Digoxin (Lanoxin) (01/07/21 08:45) Type & Screen (01/07/21 08:23) Fentanyl Citrate (Sublimaze) (01/07/21 11:00) Fingerstick Blood Sugar (01/07/21 12:05) Digoxin (Lanoxin) (01/07/21 13:25) Albuterol Hfa Inhaler (Proventil, Ventol (01/07/21 13:40) Metoprolol Tartrate (Lopressor) (01/07/21 15:59) Fingerstick Blood Sugar (01/07/21 17:12) Fingerstick Blood Sugar (01/07/21 19:35) Basic Metabolic Profile (01/07/21 23:00) Hemoglobin & Hematocrit (01/08/21 23:00) Plan Text 1. Acute oliguric renal failure. Patient has a baseline CKD 3/CKD 4, baseline creatinine of 1.7 during this hospitalization. Solitary kidney:Oliguric renal is secondary to a combination of hemorrhagic shock, hypotension and use of Toradol, continue blood products and IVF. She just started making urine. I am hopeful that renal function will start improving and we can avoid HD. 2. Hemorrhagic shock. Patient got DDAVP. Aspirin, Plavix and Lovenox have been stopped. She was given protamine,FFP and PRBC.Hb is stable now. 3. Acute hypoxic respiratory failure secondary to COVID-19 pneumonia. Patient is on Vapotherm. She is on Decadron, Remdesivir as per COVID-19 protocol. 4. Diabetes mellitus type 2. Okay to continue insulin sliding scale and Levemir. 5. Chronic gout secondary to chronic kidney disease. The patient has acute renal failure. Allopurinol is on hold. 6. Melena. IV Protonix. 7. Lactic acidosis. It is secondary to hemorrhagic shock. Continue IV fluid. Check lactate in AM MIRIAN KRUEGER MD Jan 07, 2021 22:50
[2021-01-08] VITALS (11 sets, daily range): BP systolic 126–180; BP diastolic 62–94
[2021-01-08] LABS: CALCIUM LEVEL 7.2 MG/DL (8.8-10.2); CREATININE FOR GFR 3.37 MG/DL (0.55-1.30); GLOMERULAR FILTRATION RATE 14.4 (>45); POTASSIUM SERUM 4.6 MEQ/L (3.5-5.1)
[2021-01-08 00:15] LABS: HEMATOCRIT 25.6 % (36.0-47.0); HEMOGLOBIN 8.7 g/dl (12.0-15.5)
[2021-01-08] MEDS: NS 1,000 ML IV SCH (01:33)
[2021-01-08] MEDS: PIPERACILLIN/TAZOBACTAM SOD 2.25 GM in D5W MINI-BAG PLUS 50 ML IV SCH ×3 (01:39→18:07)
[2021-01-08] MEDS: LEVOTHYROXINE 150MCG TABLET (0.15MG) PO SCH (05:44)
[2021-01-08 05:56] LABS: HEMATOCRIT 25.7 % (36.0-47.0); HEMOGLOBIN 8.5 g/dl (12.0-15.5); MEAN CORPUSCULAR HGB CONC 33.1 g/dl (32.0-36.5); MEAN CORPUSCULAR VOLUME 90.8 fl (80.0-96.0); PLATELET COUNT, AUTOMATED 189 10^3/uL (150-450); RED BLOOD COUNT 2.83 10^6/uL (4.00-5.40)
[2021-01-08 06:08] LABS: WHITE BLOOD COUNT 32.7 10^3/uL (4.0-10.0)
[2021-01-08 06:16] LABS: INR 1.23; PROTHROMBIN TIME 15.9 SECONDS (12.7-14.5)
[2021-01-08 06:45] LABS: ALBUMIN 1.9 GM/DL (3.2-5.2); BILIRUBIN,DIRECT 0.5 MG/DL (0.0-0.2); BILIRUBIN,TOTAL 0.9 MG/DL (0.2-1.0); CALCIUM LEVEL 7.8 MG/DL (8.8-10.2); CREATININE FOR GFR 2.99 MG/DL (0.55-1.30); GLOMERULAR FILTRATION RATE 16.5 (>45); MAGNESIUM LEVEL 2.1 MG/DL (1.8-2.4); POTASSIUM SERUM 4.6 MEQ/L (3.5-5.1); TOTAL PROTEIN 4.7 GM/DL (6.4-8.2); TROPONIN I 0.09 NG/ML (< 0.10)
[2021-01-08 06:57] LABS: LYMPHOCYTES 6 % (16-44); METAMYELOCYTES 3 % (0-0); MONOCYTES 3 % (0-5); MYELOCYTES 1 % (0-0); NEUTROPHILS 87 % (28-66)
[2021-01-08 06:58] LABS: ANISOCYTOSIS 1+; OVALOCYTES 1+; PLATELET ESTIMATE NORMAL (NORMAL)
[2021-01-08] MEDS: HumaLOG INSULIN (NovoLOG) PER UNIT SC SCH ×4 (07:30→21:00)
[2021-01-08] MEDS: PANTOPRAZOLE 40MG VIAL (C9113 PER 1) IV SCH ×2 (08:14→22:22)
[2021-01-08] MEDS: dexameTHASONE 20MG/5ML VIAL (J1100 PER 1MG) IV SCH (08:15)
[2021-01-08] MEDS: LEVEMIR (INSULIN DETEMIR) 1 UNITS/0.01ML SC SCH (08:16)
[2021-01-08] MEDS: allopurinoL 100 MG TAB PO SCH (08:16)
--- NOTE | 2021-01-08 13:43 | IPNPDOC ---
Subjective Date Seen The patient was seen on 01/08/21. Subjective Chief Complaint/HPI Pleasant today and not in any acute distress. however, she is only alert and oriented x2, not alert to place. She denies of pain, fever, chills, shortness of breath. General: Denies: Chills Constitutional: Denies: Chills, Fever Eyes: Denies: Pain ENT: Denies: Head Aches Skin: Denies: Rash Pulmonary: Denies: Dyspnea, Cough Cardiovascular: Denies: Chest Pain, Palpitations, Orthopnea Neurological: Denies: Weakness Objective Physical Examination General Exam: Positive: Alert, Cooperative, No Acute Distress, Other (Tremulous in pain, confused) Eye Exam: Positive: PERRLA; Negative: Sclera icteric ENT Exam: Positive: Atraumatic, Mucous membr. moist/pink, Pharynx Normal Neck Exam: Positive: Supple; Negative: JVD, thyromegaly Chest Exam: Positive: Normal air movement; Negative: Rales, Rhonchi, Wheezing Heart Exam: Positive: Rate Normal, Regular Rhythm, Normal S1, Normal S2; Negative: Murmurs, Rubs Abdomen Exam: Positive: Normal bowel sounds, Soft, Tenderness (in the lower a bdomen) Extremity Exam: Negative: Clubbing, Cyanosis, Edema Skin Exam: Negative: Rash, Breakdown Assessment /Plan Assessment This is a 70-year-old female with past medical history of coronary artery disease status post stenting more than a year ago, hypertension, gout, cervical cancer, diabetes, DVT status post IVC filter, hyperlipidemia, hypothyroidism, chronic kidney disease stage IV, solitary kidney who was admitted to the hospital on January 02, 2021 with hypoxic respiratory failure secondary to COVID- 19 ARDS. During the hospitalization, patient developed spontaneous retroperitoneal and intra-abdominal hematoma in the setting of coagulopathy. 1. Hypovolemic/hemorrhagic shock -resolved 2. Metabolic encephalopathyresolved 3. ROSA on CKD stage IVimproving 4. Lactic acidosisresolved 5. Retroperitoneal and intra-abdominal hemorrhage-improving 6. Coagulopathy secondary to aspirin/Plavix use with Lovenox for [id number] been reversed 7. Coronary artery disease status post stents more than a year ago 8. Solitary kidney 9. Hypoxic respiratory failure secondary to COVID-19 ARDS-improving 10. New onset of atrial fibrillation with RVR-resolved Plan/VTE VTE Prophylaxis Ordered?: Yes Plan -Patient is currently on high flow nasal cannula 6 to 8 L and saturating well. She is not in any acute distress. Her hypoxic respiratory failure from COVID-19 ARDS is slowly improving. Continue with current regimen and encourage self proning. -Hemorrhagic/hypovolemic shock has been resolved. She is currently hemodynamic stable and making good urine output. Recommend to hold off any anticoagulant at this point. -A. fib with RVR has been converted to normal sinus. Recommend rate control agent only. -Renal function has been recovering. Patient is currently polyuric phase of ATN. Nephrology on board. No critical issue at this point. Patient is currently pending transfer to PCU. ICU will be standby. Disposition Transfer out of ICU. VS, I&O, 24H, Fishbone Vital Signs/I&O Vital Signs Date Time Temp Pulse Resp B/P (MAP) Pulse Ox O2 Delivery O2 Flow Rate FiO2 01/08/21 12:00 3.0 01/08/21 10:00 98 24 152/83 (106) 92 High Flow Cannula 01/08/21 07:55 97.7 01/08/21 06:00 32 I&O- Last 24 Hours up to 6 AM 01/08/21 06:00 Intake Total 2200 ml Output Total 1080 ml Balance 1120 ml Laboratory Data 24H LABS Laboratory Tests 2 01/07/21 17:12: Bedside Glucose (Misc Panel) 158H 01/07/21 19:35: Bedside Glucose (Misc Panel) 119H 01/07/21 23:27: Anion Gap 9, Glomerular Filtration Rate 14.4L, Calcium Level 7.2L 01/08/21 05:22: Anion Gap 6L, Glomerular Filtration Rate 16.5L, Calcium Level 7.8L, Immature Granulocyte % (Auto) , Neutrophils (%) (Auto) , Nucleated Red Blood Cells % (auto) 0.8H, Neutrophils 87H, Lymphocytes (Manual) 6L, Monocytes (Manual) 3, Metamyelocytes 3H, Myelocytes 1H, Anisocytosis 1+, Macrocytosis 1+, Ovalocytes 1+, Platelet Estimate NORMAL, Prothrombin Time 15.9H, Prothromb Time International Ratio 1.23, Activated Partial Thromboplast Time 30.0, Fibrinogen 227, Lactic Acid Level 1.0, Magnesium Level 2.1, Ferritin 5415H, Total Bilirubin 0.9, Direct Bilirubin 0.5H, Aspartate Amino Transf (AST/SGOT) 94H, Alanine Aminotransferase (ALT/SGPT) 88H, Alkaline Phosphatase 164H, Lactate Dehydrogenase 520H, Total Creatine Kinase 439#H, Troponin I 0.09#, TI-Ezs-V-Type Natriuretic Peptide 4720H, Total Protein 4.7L, Albumin 1.9L, Albumin/Globulin R atio 0.7L, Procalcitonin 0.51 01/08/21 12:20: Bedside Glucose (Misc Panel) 169H CBC/BMP Laboratory Tests 01/07/21 13:45 01/07/21 18:09 01/07/21 23:27 01/07/21 23:51 01/08/21 05:22 Microbiology Microbiology 01/06/21 Stool Occult Blood ([facility]) - Final, Complete 01/06/21 Blood Culture - Preliminary, Resulted No Growth after 48 hours. All Specime... 01/02/21 Blood Culture - Final, Complete NO GROWTH AFTER 5 DAYS 01/02/21 Blood Culture - Final, Complete NO GROWTH AFTER 5 DAYS 01/01/21 Respiratory Virus Panel (PCR) ([facility]) - Final, Complete SARS-CoV-2 (COVID 19) 01/01/21 Blood Culture - Final, Complete Staphylococcus Haemolyticus OMARI BURGOS MD Jan 08, 2021 13:43
[2021-01-08] MEDS: METOPROLOL TART 25 MG TABLET PO SCH (18:05)
--- NOTE | 2021-01-08 19:05 | ECGEPIP ---
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
--- NOTE | 2021-01-08 21:59 | IPNPDOC ---
Subjective CC/HPI The patient is a 70-year-old female admitted with a reason for visit of Pneumonia Due To Covid-19 Virus. Events since last encounter Pt was seen in ICU today AM. She is more awake and alert today. BP is better. She started making urine UOP 779/335 since yesterday AM.Cr iw 3.3-->2.9 today. Renal function is improving. She is on Nasal canula. Pt is also going to eat breakfast today. General: Reports: Fatigue, Malaise; Denies: Chills, Night Sweats Constitutional: Denies: Chills, Fever Eyes: Denies: Pain, Vision change ENT: Denies: Head Aches Skin: Reports: Lesions; Denies: Rash Pulmonary: Reports: Dyspnea; Denies: Cough Cardiovascular: Denies: Chest Pain, Palpitations, Orthopnea Gastrointestinal: Reports: Abdominal Pain; Denies: Nausea, Vomiting Genitourinary: Denies: Dysuria, Frequency Hematologic: Reports: Bruising, Purpura Musculoskeletal: Reports: Neck Pain, Back Pain Neurological: Reports: Weakness; Denies: Numbness Psych: Reports: Anxiety Objective Physical Examination General Exam: Cooperative, Mild Distress (Wearing nasal canula) EYE EXAM: PERRLA, Conjunctiva & lids normal, EOMI ENT EXAM: Atraumatic, Mucous membr. moist/pink Neck Exam: Supple; No: JVD Chest Exam: Rales, Other (Requiring Nasal canula due to COVID ARDS.) Heart Exam: Rate Normal; No: Murmurs, Rubs ABDOMEN EXAM: Normal bowel sounds, Soft, Tenderness (Rectus sheath hematoma. Abdominal wall bruises.) Extremity Exam: No: Clubbing, Cyanosis, Edema Skin Exam: Nl turgor and temperature, Lesion (echymosis); No: Rash Neuro Exam: Normal Speech, Strength at 5/5 X4 ext Psych Exam: Anxiety; No: Oriented x 3 (Oriented x 2) Vital Signs/I&O Vital Signs Date Time Temp Pulse Resp B/P (MAP) Pulse Ox O2 Delivery O2 Flow Rate FiO2 01/08/21 18:05 86 157/82 01/08/21 18:00 24 95 High Flow Cannula 3.0 01/08/21 15:51 97.2 01/08/21 06:00 32 I&O- Last 24 Hours up to 6 AM 01/08/21 06:00 Intake Total 2200 ml Output Total 1080 ml Balance 1120 ml Laboratory Data Labs 24H Laboratory Tests 2 01/07/21 23:27: Anion Gap 9, Glomerular Filtration Rate 14.4L, Calcium Level 7.2L 01/08/21 05:22: Anion Gap 6L, Glomerular Filtration Rate 16.5L, Calcium Level 7.8L, Immature Granulocyte % (Auto) , Neutrophils (%) (Auto) , Nucleated Red Blood Cells % (auto) 0.8H, Neutrophils 87H, Lymphocytes (Manual) 6L, Monocytes (Manual) 3, Metamyelocytes 3H, Myelocytes 1H, Anisocytosis 1+, Macrocytosis 1+, Ovalocytes 1+, Platelet Estimate NORMAL, Prothrombin Time 15.9H, Prothromb Time International Ratio 1.23, Activated Partial Thromboplast Time 30.0, Fibrinogen 227, Lactic Acid Level 1.0, Magnesium Level 2.1, Ferritin 5415H, Total Bilirubin 0.9, Direct Bilirubin 0.5H, Aspartate Amino Transf (AST/SGOT) 94H, Alanine Aminotransferase (ALT/SGPT) 88H, Alkaline Phosphatase 164H, Lactate Dehydrogenase 520H, Total Creatine Kinase 439#H, Troponin I 0.09#, PC-Rqi-[id number]-Type Natriuretic Peptide 4720H, Total Protein 4.7L, Albumin 1.9L, Albumin/Globulin Ratio 0.7L, Procalcitonin 0.51 01/08/21 12:20: Bedside Glucose (Misc Panel) 169H 01/08/21 16:55: Bedside Glucose (Misc Panel) 192H CBC/BMP Laboratory Tests 01/07/21 23:27 01/07/21 23:51 01/08/21 05:22 FSBS Laboratory Tests Test 01/08/21 12:20 01/08/21 16:55 Range/Units Bedside Glucose (Misc Panel) 169 192 80-115 MG/DL Current Medications Current Medications Medications (Trade) Dose Ordered Sig/Berna Route PRN Reason Start Time Stop Time Status Last Admin Dose Admin Acetaminophen (Tylenol Tab) 650 mg Q4HP PRN PO mild pain/fever 01/02/21 03:45 01/05/21 08:58 Albuterol Sulfate (Proventil Neb) 2.5 mg RQ6H NEB 01/04/21 14:00 01/07/21 13:40 DC 01/06/21 20:37 Albuterol Sulfate (Proventil, Ventolin Hfa) 2 puff Q6HP PRN INH SHORTNESS OF BREATH 01/07/21 13:40 Albuterol/ Ipratropium (Duoneb (Ipr 0.5mg/Alb 2.5mg)) 3 ml Q4HP PRN NEB sob 01/02/21 03:45 01/07/21 13:40 DC 01/07/21 01:14 Allopurinol (Zyloprim) 100 mg DAILY PO 01/02/21 09:00 01/08/21 08:16 Amiodarone HCl 150 mg/IV Miscellaneous Supplies 100 ml @ 600 mls/hr NOW IV 01/07/21 05:10 01/07/21 05:19 DC 01/07/21 05:37 Amitriptyline HCl (Elavil) 25 mg DAILY PO 01/02/21 09:00 01/06/21 09:24 DC 01/05/21 08:58 Aspirin (Ecotrin) 81 mg DAILY PO 01/02/21 09:00 01/06/21 10:15 DC 01/06/21 09:44 Atorvastatin Calcium (Lipitor) 10 mg DAILY PO 01/02/21 09:00 01/06/21 07:25 DC 01/05/21 08:58 Ceftriaxone Sodium 1 gm/ Dextrose 50 ml @ 100 mls/hr Q24H IV 01/02/21 17:00 01/06/21 07:35 DC 01/05/21 16:57 Clopidogrel Bisulfate (PLAVix) 75 mg DAILY PO 01/02/21 09:00 01/06/21 09:24 DC 01/05/21 08:57 Dexamethasone (Decadron) 6 mg DAILY IV 01/02/21 09:00 01/03/21 15:10 DC 01/03/21 09:38 Dexamethasone (Decadron) 10 mg BID IV 01/03/21 21:00 01/06/21 10:15 DC 01/06/21 09:45 Dexamethasone (Decadron) 10 mg DAILY IV 01/07/21 09:00 01/08/21 08:15 Dextrose (Dextrose 50%) 25 ml ASDIRECTED PRN IV SEE LABEL COMMENTS 01/02/21 03:45 Enalapril Maleate (Vasotec) 5 mg BID PO 01/02/21 09:00 01/02/21 07:02 DC Enoxaparin Sodium (Lovenox) 40 mg BID SC 01/03/21 21:00 01/06/21 09:24 DC 01/05/21 22:51 Enoxaparin Sodium (Lovenox) 40 mg Q24H SC 01/02/21 09:00 01/02/21 16:07 DC 01/02/21 08:27 Enoxaparin Sodium (Lovenox) 40 mg Q24H SC 01/03/21 09:00 01/03/21 19:48 DC 01/03/21 09:45 EZETIMIBE (Zetia) 10 mg DAILY PO 01/02/21 09:00 01/06/21 07:25 DC 01/05/21 08:58 Ferrous Sulfate (Ferrous Sulfate) 325 mg DAILY PO 01/02/21 09:00 01/06/21 07:25 DC 01/05/21 08:57 Furosemide (Lasix) 80 mg BID@0900,1700 PO 01/02/21 09:00 01/02/21 07:02 DC Gabapentin (Neurontin) 300 mg TID PO 01/02/21 09:00 01/02/21 05:16 DC Glucagon (Glucagon) 1 mg ASDIRECTED PRN SC SEE LABEL COMMENTS 01/02/21 03:45 Glucose (Glucose) 16 GM ASDIRECTED PRN PO SEE LABEL COMMENTS 01/02/21 03:45 Haloperidol (Haldol) 5 mg STAT STAT IM 01/06/21 13:13 01/06/21 13:18 DC 01/06/21 13:30 Home Med (Home Med List Complete!) ASDIRECTED XX 01/02/21 03:55 01/02/21 03:54 DC Insulin Detemir (Levemir Insulin) 20 units DAILY SC 01/02/21 09:00 01/08/21 08:16 Insulin Human Lispro (HumaLOG INSULIN) SEE PROTOCOL TABLE AC SC 01/02/21 07:30 01/08/21 17:03 Insulin Human Lispro (HumaLOG INSULIN) SEE PROTOCOL TABLE QHS SC 01/02/21 21:00 Isosorbide Mononitrate (Imdur) 30 mg DAILY PO 01/02/21 09:00 01/06/21 09:24 DC 01/05/21 08:57 Levothyroxine Sodium (Synthroid) 150 mcg DAILY PO 01/02/21 09:00 01/04/21 09:13 DC 01/03/21 09:38 Levothyroxine Sodium (Synthroid) 150 mcg DAILY@0600 PO 01/04/21 06:00 01/08/21 05:44 Metoprolol Tartrate (Lopressor) 5 mg STAT STAT IV 01/07/21 15:59 01/07/21 16:00 MN 01/07/21 16:13 Metoprolol Tartrate (Lopressor) 25 mg BID PO 01/02/21 21:00 01/05/21 11:02 DC 01/05/21 09:09 Metoprolol Tartrate (Lopressor) 25 mg Q6H PO 01/08/21 18:00 01/08/21 18:05 Metoprolol Tartrate (Lopressor) 50 mg BID PO 01/02/21 09:00 01/02/21 16:02 MN 01/02/21 08:29 Metoprolol Tartrate (Lopressor) 50 mg BID PO 01/05/21 21:00 01/06/21 07:25 MN 01/05/21 22:49 Morphine Sulfate (Morphine Sulfate Inj) 2 mg Q4H PRN IV PAIN LEVEL 6-10 01/06/21 09:15 01/08/21 12:10 MN 01/06/21 19:20 Ondansetron HCl (ZOFRAN INJection) 4 mg Q6HP PRN IV NAUSEA OR VOMITING 01/05/21 08:25 01/06/21 03:24 Pantoprazole Sodium (Protonix) 40 mg BID IV 01/06/21 09:00 01/08/21 08:14 Pantoprazole Sodium (Protonix) 40 mg BID PO 01/03/21 21:00 01/06/21 09:24 MN 01/05/21 22:50 Pantoprazole Sodium (Protonix) 40 mg DAILY PO 01/02/21 09:00 01/03/21 15:10 MN 01/03/21 09:39 Piperacillin Sod/ Tazobactam Sod 2.25 gm/Dextrose 50 ml @ 50 mls/hr Q8H IV 01/06/21 10:00 01/08/21 18:07 Protamine Sulfate (Protamine Sulfate) 20 mg STAT STAT IV 01/06/21 11:06 01/06/21 11:11 DC 01/06/21 14:06 Remdesivir 100 mg/ Sodium Chloride 270 ml @ 270 mls/hr Q24H IV 01/03/21 06:00 01/07/21 05:59 DC 01/06/21 18:20 Sodium Chloride 1,000 ml @ 70 mls/hr [id number] IV 01/06/21 09:15 01/08/21 10:17 DC 01/08/21 01:33 Sodium Chloride 1,000 ml @ 100 mls/hr Q10H IV 01/02/21 01:35 01/02/21 07:02 DC 01/02/21 01:50 Sodium Chloride (Saline Lock Flush) 30 ml Q24H IV 01/03/21 07:00 01/07/21 06:59 DC 01/06/21 19:20 Tramadol HCl (Ultram) 50 mg Q8HP PRN PO PAIN LEVEL 6-10 01/05/21 18:40 01/06/21 09:24 DC 01/05/21 18:55 Vancomycin HCl 750 mg/IV Miscellaneous Supplies 1 each/ Sodium Chloride 275 ml @ 275 mls/hr Q24H IV 01/03/21 19:00 01/04/21 10:59 DC 01/03/21 21:43 Vancomycin HCl 1000 mg/IV Miscellaneous Supplies 1 each/ Sodium Chloride 270 ml @ 270 mls/hr Q12H IV 01/02/21 16:10 01/02/21 18:05 DC Zolpidem Tartrate (Ambien) 5 mg QPMP PRN PO sleep 01/02/21 05:05 01/02/21 15:54 DC Allergies Coded Allergies: Macrolide Antibiotics (Verified Allergy, Unknown, 12/23/19) Penicillins (Verified Allergy, Unknown, 12/23/19) Quinolones (Verified Allergy, Unknown, 02/01/20) codeine (Verified Allergy, Unknown, 12/23/19) erythromycin base (Verified Allergy, Unknown, 12/23/19) morphine (Verified Allergy, Unknown, 12/23/19) nitroglycerin (Verified Allergy, Unknown, PATCHES, 02/01/20) ranolazine (Verified Allergy, Unknown, 02/01/20) telithromycin (Verified Allergy, Unknown, 12/23/19) Assessment/Plan Date Seen The patient was seen on 01/08/21 in AM at [place] [id number] ICU.. Plan / VTE VTE Prophylaxis Ordered?: Yes Plan Orders past 48 Hours Orders Fentanyl Citrate (Sublimaze) (01/07/21 02:00) Oxycodone/Apap 5mg/325mg (Percocet 5mg/3 (01/07/21 04:05) Code Status (01/07/21 04:07) Electrocardiogram Adult (01/07/21 05:09) Echocard,Doppler/Color Flow (01/07/21 05:09) Code Status (01/07/21 05:09) Amiodarone Hcl (Nexterone) (01/07/21 05:10) Hemoglobin & Hematocrit (01/07/21 12:00) Hemoglobin & Hematocrit (01/07/21 18:00) Packed Cells (01/07/21 08:23) Transfuse Packed Cells (01/07/21 08:23) Digoxin (Lanoxin) (01/07/21 08:45) Type & Screen (01/07/21 08:23) Fentanyl Citrate (Sublimaze) (01/07/21 11:00) Fingerstick Blood Sugar (01/07/21 12:05) Digoxin (Lanoxin) (01/07/21 13:25) Albuterol Hfa Inhaler (Proventil, Ventol (01/07/21 13:40) Metoprolol Tartrate (Lopressor) (01/07/21 15:59) Fingerstick Blood Sugar (01/07/21 17:12) Fingerstick Blood Sugar (01/07/21 19:35) Basic Metabolic Profile (01/07/21 23:00) Hemoglobin & Hematocrit (01/08/21 23:00) Lactic Acid Level, Lactate (01/08/21 06:00) Hemoglobin & Hematocrit (01/07/21 23:51) Hemoglobin & Hematocrit (01/08/21 05:48) Differential No Charge (01/08/21 05:22) Platelet Estimate (01/08/21 05:22) Consistent Carbohydrates (01/08/21 Breakfast) Transfer (In House) (01/08/21 11:22) Fingerstick Blood Sugar (01/08/21 12:20) Metoprolol Tartrate (Lopressor) (01/08/21 18:00) Fingerstick Blood Sugar (01/08/21 16:55) Plan Text 1. Acute oliguric renal failure. Patient has a baseline CKD 3/CKD 4, baseline creatinine of 1.7 during this hospitalization. Solitary kidney:Pt is non oliguria now. She is starting to eat. DC IV fluid now. 2. Hemorrhagic shock-->Resolved: Patient got DDAVP. Aspirin, Plavix and Lovenox have been stopped. She was given protamine,FFP and PRBC.Hb is stable now. 3. Acute hypoxic respiratory failure secondary to COVID-19 pneumonia-->Improving. Patient is on nasal canula. She is on Decadron, Remdesivir as per COVID-19 protocol. 4. Diabetes mellitus type 2. Okay to continue insulin sliding scale and Levemir. 5. Chronic gout secondary to chronic kidney disease. The patient has acute renal failure. Allopurinol is on hold. 6. Lactic acidosis. Resolved 7. Hyperchloremia: Stop IV fluids now. MIRIAN KRUEGER MD Jan 08, 2021 21:59
[2021-01-08 23:24] LABS: HEMATOCRIT 25.3 % (36.0-47.0); HEMOGLOBIN 8.4 g/dl (12.0-15.5)
[2021-01-09] VITALS: O2SAT 97
[2021-01-09] MEDS: PIPERACILLIN/TAZOBACTAM SOD 2.25 GM in D5W MINI-BAG PLUS 50 ML IV SCH ×3 (01:27→18:13)
[2021-01-09 06:00] VITALS: BP 136/62
[2021-01-09] MEDS: METOPROLOL TART 25 MG TABLET PO SCH ×4 (06:00→18:16)
[2021-01-09] MEDS: LEVOTHYROXINE 150MCG TABLET (0.15MG) PO SCH (06:54)
[2021-01-09 08:10] LABS: HEMATOCRIT 25.5 % (36.0-47.0); HEMOGLOBIN 8.6 g/dl (12.0-15.5); MEAN CORPUSCULAR HEMOGLOBIN 30.7 pg (27.0-33.0); MEAN CORPUSCULAR HGB CONC 33.7 g/dl (32.0-36.5); MEAN CORPUSCULAR VOLUME 91.1 fl (80.0-96.0); PLATELET COUNT, AUTOMATED 222 10^3/uL (150-450); WHITE BLOOD COUNT 27.3 10^3/uL (4.0-10.0)
[2021-01-09 08:32] LABS: CALCIUM LEVEL 8.4 MG/DL (8.8-10.2); CREATININE FOR GFR 2.22 MG/DL (0.55-1.30); GLOMERULAR FILTRATION RATE 23.3 (>45); MAGNESIUM LEVEL 2.3 MG/DL (1.8-2.4); POTASSIUM SERUM 4.6 MEQ/L (3.5-5.1)
[2021-01-09 08:34] LABS: LYMPHOCYTES 1 % (16-44); MONOCYTES 5 % (0-5); NEUTROPHILS 92 % (28-66); PLATELET ESTIMATE NORMAL (NORMAL)
[2021-01-09] MEDS: LEVEMIR (INSULIN DETEMIR) 1 UNITS/0.01ML SC SCH (08:56)
[2021-01-09] MEDS: PANTOPRAZOLE 40MG VIAL (C9113 PER 1) IV SCH ×2 (08:57→21:41)
[2021-01-09] MEDS: dexameTHASONE 20MG/5ML VIAL (J1100 PER 1MG) IV SCH (08:57)
[2021-01-09] MEDS: HumaLOG INSULIN (NovoLOG) PER UNIT SC SCH ×4 (08:57→21:41)
--- NOTE | 2021-01-09 10:38 | ECHO ---
ECHOCARDIOGRAM DATE OF PROCEDURE: 01/08/2021 Age: 70 Gender: Female Height: 155 cm Weight: 87 kilograms REFERRING PHYSICIAN: Dr. Rebekah Heck INDICATION: Cardiac dysrhythmia, COVID-19 2D MEASUREMENTS: IVS 1.3 cm LV 3.0 cm LVPW 1.3 cm LA 3.8 cm Aorta 3.3 cm Mitral E wave velocity 55 A wave 59 E prime septal 5.0 E prime lateral 7.7 FINDINGS: This study is of fair technical quality with difficult visualization. Patient is in sinus rhythm. Left ventricle is normal size. Mild left ventricular hypertrophy is noted. Normal LV systolic function based on somewhat fair quality of images. I certainly cannot rule out subtle motion abnormalities. Overall LVEF estimated 60-65%. Normal RV size and systolic function. Both atrial appear normal. Aortic, mitral and tricuspid valves appear normal. Pulmonic valve was not well seen. No pericardial effusion is noted. Left pleural effusion is noted. Inferior vena cava was poorly visualized, but appears to have very small caliber. Aortic root and abdominal aorta appear normal. Aortic arch was not visualized. Doppler interrogation reveals competent aortic valve. There is trace mitral insufficiency. Tricuspid valve is functionally competent as well. Mitral inflow pattern on tissue Doppler imaging of mitral annulus revealed grade 1 diastolic dysfunction. CONCLUSIONS: 1. Study is of fair technical quality. Underlying sinus rhythm. 2. Normal LV size with mild LVH and preserved LV systolic function. Grade 1 diastolic dysfunction. 3. No hemodynamically significant valvular disease. 4. Likely low central venous pressure, unable to estimate pulmonary artery pressure. 5. Left pleural effusion.
[2021-01-09] MEDS: allopurinoL 100 MG TAB PO SCH (11:08)
[2021-01-09] MEDS ORDERED: FUROSEMIDE 40MG/4ML VIAL (J1940) IV ONE (11:50)
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
[2021-01-09 14:00] VITALS: BP 143/65
--- NOTE | 2021-01-09 16:58 | IPNPDOC ---
Subjective CC/HPI The patient is a 70-year-old female admitted with a reason for visit of Pneumonia Due To Covid-19 Virus. Events since last encounter Pt was seen in COVID 19 Isolation unit. She was transferred out of ICU. Hemodynamically she is stable. Renal function is improving. Cr 2.9-->2.2. UOP1.2L yesterday. O2 requirement only @1L. She reports mild LE edema. General: Reports: Fatigue; Denies: Chills, Night Sweats Constitutional: Denies: Chills, Fever Eyes: Denies: Pain, Vision change ENT: Denies: Head Aches, Ear Pain Skin: Reports: Lesions; Denies: Rash Pulmonary: Reports: Dyspnea; Denies: Cough Cardiovascular: Denies: Chest Pain, Palpitations Gastrointestinal: Reports: Abdominal Pain; Denies: Nausea, Vomiting Genitourinary: Reports: Other Symptoms (Kaufman) Hematologic: Reports: Bruising; Denies: Bleeding Excessively Musculoskeletal: Denies: Neck Pain, Back Pain Neurological: Denies: Weakness, Numbness Psych: Reports: Mood Normal Objective Physical Examination General Exam: Cooperative, No Acute Distress EYE EXAM: PERRLA, Conjunctiva & lids normal, EOMI ENT EXAM: Atraumatic, Mucous membr. moist/pink Neck Exam: Supple; No: JVD Chest Exam: Rales, Other (Requiring Nasal canula @1L) Heart Exam: Rate Normal; No: Murmurs, Rubs ABDOMEN EXAM: Normal bowel sounds, Soft, Tenderness (Rectus sheath hematoma. Abdominal wall bruises.) Extremity Exam: No: Clubbing, Cyanosis, Edema Skin Exam: Nl turgor and temperature, Lesion (echymosis); No: Rash Neuro Exam: Normal Speech, Strength at 5/5 X4 ext Psych Exam: Anxiety, Oriented x 3 Vital Signs/I&O Vital Signs Date Time Temp Pulse Resp B/P (MAP) Pulse Ox O2 Delivery O2 Flow Rate FiO2 01/09/21 14:00 97.6 60 17 143/65 (91) 97 High Flow Cannula 3.0 01/08/21 06:00 32 I&O- Last 24 Hours up to 6 AM 01/09/21 06:00 Intake Total 1430 ml Output Total 915 ml Balance 515 ml Laboratory Data Labs 24H Laboratory Tests 2 01/08/21 16:55: Bedside Glucose (Misc Panel) 192H 01/08/21 22:09: Bedside Glucose (Misc Panel) 206H 01/09/21 07:39: Bedside Glucose (Misc Panel) 149H 01/09/21 07:43: Immature Granulocyte % (Auto) , Neutrophils (%) (Auto) , Nucleated Red Blood Cells % (auto) 1.1H, Neutrophils 92H, Band Neutrophils 2, Lymphocytes (Manual) 1L, Monocytes (Manual) 5, Red Blood Cell Morphology NORMAL, Platelet Estimate NORMAL, Anion Gap 6L, Glomerular Filtration Rate 23.3L, Calcium Level 8.4L, M agnesium Level 2.3 01/09/21 12:41: Bedside Glucose (Misc Panel) 169H 01/09/21 16:35: Bedside Glucose (Misc Panel) 198H CBC/BMP Laboratory Tests 01/08/21 23:01 01/09/21 07:43 FSBS Laboratory Tests Test 01/08/21 16:55 01/08/21 22:09 01/09/21 07:39 01/09/21 12:41 Range/Units Bedside Glucose (Misc Panel) 192 206 149 169 80-115 MG/DL Test 01/09/21 16:35 Range/Units Bedside Glucose (Misc Panel) 198 80-115 MG/DL Current Medications Current Medications Medications (Trade) Dose Ordered Sig/Berna Route PRN Reason Start Time Stop Time Status Last Admin Dose Admin Acetaminophen (Tylenol Tab) 650 mg Q4HP PRN PO mild pain/fever 01/02/21 03:45 01/05/21 08:58 Albuterol Sulfate (Proventil Neb) 2.5 mg RQ6H NEB 01/04/21 14:00 01/07/21 13:40 DC 01/06/21 20:37 Albuterol Sulfate (Proventil, Ventolin Hfa) 2 puff Q6HP PRN INH SHORTNESS OF BREATH 01/07/21 13:40 Albuterol/ Ipratropium (Duoneb (Ipr 0.5mg/Alb 2.5mg)) 3 ml Q4HP PRN NEB sob 01/02/21 03:45 01/07/21 13:40 DC 01/07/21 01:14 Allopurinol (Zyloprim) 100 mg DAILY PO 01/02/21 09:00 01/09/21 11:08 Amiodarone HCl 150 mg/IV Miscellaneous Supplies 100 ml @ 600 mls/hr NOW IV 01/07/21 05:10 01/07/21 05:19 DC 01/07/21 05:37 Amitriptyline HCl (Elavil) 25 mg DAILY PO 01/02/21 09:00 01/06/21 09:24 DC 01/05/21 08:58 Aspirin (Ecotrin) 81 mg DAILY PO 01/02/21 09:00 01/06/21 10:15 DC 01/06/21 09:44 Atorvastatin Calcium (Lipitor) 10 mg DAILY PO 01/02/21 09:00 01/06/21 07:25 DC 01/05/21 08:58 Ceftriaxone Sodium 1 gm/ Dextrose 50 ml @ 100 mls/hr Q24H IV 01/02/21 17:00 01/06/21 07:35 DC 01/05/21 16:57 Clopidogrel Bisulfate (PLAVix) 75 mg DAILY PO 01/02/21 09:00 01/06/21 09:24 DC 01/05/21 08:57 Dexamethasone (Decadron) 6 mg DAILY IV 01/02/21 09:00 01/03/21 15:10 DC 01/03/21 09:38 Dexamethasone (Decadron) 10 mg BID IV 01/03/21 21:00 01/06/21 10:15 DC 01/06/21 09:45 Dexamethasone (Decadron) 10 mg DAILY IV 01/07/21 09:00 01/09/21 08:57 Dextrose (Dextrose 50%) 25 ml ASDIRECTED PRN IV SEE LABEL COMMENTS 01/02/21 03:45 Enalapril Maleate (Vasotec) 5 mg BID PO 01/02/21 09:00 01/02/21 07:02 DC Enoxaparin Sodium (Lovenox) 40 mg BID SC 01/03/21 21:00 01/06/21 09:24 DC 01/05/21 22:51 Enoxaparin Sodium (Lovenox) 40 mg Q24H SC 01/02/21 09:00 01/02/21 16:07 DC 01/02/21 08:27 Enoxaparin Sodium (Lovenox) 40 mg Q24H SC 01/03/21 09:00 01/03/21 19:48 DC 01/03/21 09:45 EZETIMIBE (Zetia) 10 mg DAILY PO 01/02/21 09:00 01/06/21 07:25 DC 01/05/21 08:58 Ferrous Sulfate (Ferrous Sulfate) 325 mg DAILY PO 01/02/21 09:00 01/06/21 07:25 DC 01/05/21 08:57 Furosemide (Lasix) 80 mg BID@0900,1700 PO 01/02/21 09:00 01/02/21 07:02 DC Gabapentin (Neurontin) 300 mg TID PO 01/02/21 09:00 01/02/21 05:16 DC Glucagon (Glucagon) 1 mg ASDIRECTED PRN SC SEE LABEL COMMENTS 01/02/21 03:45 Glucose (Glucose) 16 GM ASDIRECTED PRN PO SEE LABEL COMMENTS 01/02/21 03:45 Haloperidol (Haldol) 5 mg STAT STAT IM 01/06/21 13:13 01/06/21 13:18 DC 01/06/21 13:30 Home Med (Home Med List Complete!) ASDIRECTED XX 01/02/21 03:55 01/02/21 03:54 DC Insulin Detemir (Levemir Insulin) 20 units DAILY SC 01/02/21 09:00 01/09/21 08:56 Insulin Human Lispro (HumaLOG INSULIN) SEE PROTOCOL TABLE AC SC 01/02/21 07:30 01/09/21 12:51 Insulin Human Lispro (HumaLOG INSULIN) SEE PROTOCOL TABLE QHS SC 01/02/21 21:00 Isosorbide Mononitrate (Imdur) 30 mg DAILY PO 01/02/21 09:00 01/06/21 09:24 DC 01/05/21 08:57 Levothyroxine Sodium (Synthroid) 150 mcg DAILY PO 01/02/21 09:00 01/04/21 09:13 DC 01/03/21 09:38 Levothyroxine Sodium (Synthroid) 150 mcg DAILY@0600 PO 01/04/21 06:00 01/09/21 06:54 Metoprolol Tartrate (Lopressor) 5 mg STAT STAT IV 01/07/21 15:59 01/07/21 16:00 DC 01/07/21 16:13 Metoprolol Tartrate (Lopressor) 25 mg BID PO 01/02/21 21:00 01/05/21 11:02 FL 01/05/21 09:09 Metoprolol Tartrate (Lopressor) 25 mg Q6H PO 01/08/21 18:00 01/09/21 12:51 Metoprolol Tartrate (Lopressor) 50 mg BID PO 01/02/21 09:00 01/02/21 16:02 FL 01/02/21 08:29 Metoprolol Tartrate (Lopressor) 50 mg BID PO 01/05/21 21:00 01/06/21 07:25 FL 01/05/21 22:49 Morphine Sulfate (Morphine Sulfate Inj) 2 mg Q4H PRN IV PAIN LEVEL 6-10 01/06/21 09:15 01/08/21 12:10 FL 01/06/21 19:20 Ondansetron HCl (ZOFRAN INJection) 4 mg Q6HP PRN IV NAUSEA OR VOMITING 01/05/21 08:25 01/06/21 03:24 Pantoprazole Sodium (Protonix) 40 mg BID IV 01/06/21 09:00 01/09/21 08:57 Pantoprazole Sodium (Protonix) 40 mg BID PO 01/03/21 21:00 01/06/21 09:24 FL 01/05/21 22:50 Pantoprazole Sodium (Protonix) 40 mg DAILY PO 01/02/21 09:00 01/03/21 15:10 FL 01/03/21 09:39 Piperacillin Sod/ Tazobactam Sod 2.25 gm/Dextrose 50 ml @ 50 mls/hr Q8H IV 01/06/21 10:00 01/09/21 08:56 Protamine Sulfate (Protamine Sulfate) 20 mg STAT STAT IV 01/06/21 11:06 01/06/21 11:11 FL 01/06/21 14:06 Remdesivir 100 mg/ Sodium Chloride 270 ml @ 270 mls/hr Q24H IV 01/03/21 06:00 01/07/21 05:59 DC 01/06/21 18:20 Sodium Chloride 1,000 ml @ 70 mls/hr [id number] IV 01/06/21 09:15 01/08/21 10:17 DC 01/08/21 01:33 Sodium Chloride 1,000 ml @ 100 mls/hr Q10H IV 01/02/21 01:35 10/5/21 07:02 DC 01/02/21 01:50 Sodium Chloride (Saline Lock Flush) 30 ml Q24H IV 01/03/21 07:00 01/07/21 06:59 DC 01/06/21 19:20 Tramadol HCl (Ultram) 50 mg Q8HP PRN PO PAIN LEVEL 6-10 01/05/21 18:40 01/06/21 09:24 DC 01/05/21 18:55 Vancomycin HCl 750 mg/IV Miscellaneous Supplies 1 each/ Sodium Chloride 275 ml @ 275 mls/hr Q24H IV 01/03/21 19:00 01/04/21 10:59 DC 01/03/21 21:43 Vancomycin HCl 1000 mg/IV Miscellaneous Supplies 1 each/ Sodium Chloride 270 ml @ 270 mls/hr Q12H IV 01/02/21 16:10 01/02/21 18:05 DC Zolpidem Tartrate (Ambien) 5 mg QPMP PRN PO sleep 01/02/21 05:05 01/02/21 15:54 DC Allergies Coded Allergies: Macrolide Antibiotics (Verified Allergy, Unknown, 12/23/19) Penicillins (Verified Allergy, Unknown, 12/23/19) Quinolones (Verified Allergy, Unknown, 02/01/20) codeine (Verified Allergy, Unknown, 12/23/19) erythromycin base (Verified Allergy, Unknown, 12/23/19) morphine (Verified Allergy, Unknown, 12/23/19) nitroglycerin (Verified Allergy, Unknown, PATCHES, 02/01/20) ranolazine (Verified Allergy, Unknown, 02/01/20) telithromycin (Verified Allergy, Unknown, 12/23/19) Assessment/Plan Date Seen The patient was seen on 01/09/21 in AM. Plan / VTE VTE Prophylaxis Ordered?: Yes Plan Orders past 48 Hours Orders Fingerstick Blood Sugar (01/07/21 17:12) Fingerstick Blood Sugar (01/07/21 19:35) Basic Metabolic Profile (01/07/21 23:00) Hemoglobin & Hematocrit (01/08/21 23:00) Lactic Acid Level, Lactate (01/08/21 06:00) Hemoglobin & Hematocrit (01/07/21 23:51) Differential No Charge (01/08/21 05:22) Platelet Estimate (01/08/21 05:22) Consistent Carbohydrates (01/08/21 Breakfast) Transfer (In House) (01/08/21 11:22) Fingerstick Blood Sugar (01/08/21 12:20) Metoprolol Tartrate (Lopressor) (01/08/21 18:00) Fingerstick Blood Sugar (01/08/21 16:55) Fingerstick Blood Sugar (01/08/21 22:09) * Nursing Order * (01/09/21 01:34) * Nursing Order * (01/09/21 06:23) Fingerstick Blood Sugar (01/09/21 07:39) Differential No Charge (01/09/21 07:43) Platelet Estimate (01/09/21 07:43) Complete Blood Count (01/11/21 06:00) Complete Blood Count (01/12/21 06:00) Complete Blood Count (01/13/21 06:00) Complete Blood Count (01/14/21 06:00) Complete Blood Count (01/15/21 06:00) Complete Blood Count (01/16/21 06:00) Basic Metabolic Profile (01/10/21 06:00) Basic Metabolic Profile (01/11/21 06:00) Basic Metabolic Profile (01/12/21 06:00) Basic Metabolic Profile (01/13/21 06:00) Basic Metabolic Profile (01/14/21 06:00) Basic Metabolic Profile (01/15/21 06:00) Basic Metabolic Profile (01/16/21 06:00) Magnesium Level (01/10/21 06:00) Magnesium Level (01/11/21 06:00) Magnesium Level (01/12/21 06:00) Magnesium Level (01/13/21 06:00) Magnesium Level (01/14/21 06:00) Magnesium Level (01/15/21 06:00) Magnesium Level (01/16/21 06:00) Furosemide Injection (Lasix Injection) (01/09/21 11:50) Fingerstick Blood Sugar (01/09/21 12:41) Fingerstick Blood Sugar (01/09/21 16:35) Plan Text 1. Acute oliguric renal failure. Patient has a baseline CKD 3/CKD 4, baseline creatinine of 1.7.Solitary kidney: Renal function is improving. Cr 2.2. now. 2. Hemorrhagic shock-->Resolved: Hb is stable now. transfuse PRBC for Hb<8. 3. Acute hypoxic respiratory failure secondary to COVID-19 pneumonia-->Improving. Patient is on nasal canula. She is on Decadron. 4. Diabetes mellitus type 2. Okay to continue insulin sliding scale and Levemir. 5. Chronic gout secondary to chronic kidney disease. The patient has acute renal failure. Allopurinol is on hold. 6. LE Edema: Lasix 40 mg IV one dose ordered today. MIRIAN KRUEGER MD Jan 09, 2021 16:58
[2021-01-09 20:00] VITALS: BP 163/68
[2021-01-09] MEDS: RAMELTEON 8 MG TAB (ROZEREM) PO PRN (22:22)
[2021-01-09 23:14] VITALS: O2SAT 99
[2021-01-10] MEDS: METOPROLOL TART 25 MG TABLET PO SCH ×4 (00:18→17:17)
[2021-01-10] MEDS: PIPERACILLIN/TAZOBACTAM SOD 2.25 GM in D5W MINI-BAG PLUS 50 ML IV SCH ×4 (03:10→22:16)
[2021-01-10 04:00] VITALS: BP 150/72
[2021-01-10] MEDS: LEVOTHYROXINE 150MCG TABLET (0.15MG) PO SCH (05:47)
[2021-01-10 08:05] LABS: HEMATOCRIT 26.9 % (36.0-47.0); HEMOGLOBIN 8.9 g/dl (12.0-15.5); MEAN CORPUSCULAR HEMOGLOBIN 30.9 pg (27.0-33.0); MEAN CORPUSCULAR HGB CONC 33.1 g/dl (32.0-36.5); MEAN CORPUSCULAR VOLUME 93.4 fl (80.0-96.0); PLATELET COUNT, AUTOMATED 221 10^3/uL (150-450); RED BLOOD COUNT 2.88 10^6/uL (4.00-5.40); WHITE BLOOD COUNT 20.1 10^3/uL (4.0-10.0)
[2021-01-10 08:31] LABS: CALCIUM LEVEL 8.6 MG/DL (8.8-10.2); CREATININE FOR GFR 2.03 MG/DL (0.55-1.30); GLOMERULAR FILTRATION RATE 25.9 (>45); MAGNESIUM LEVEL 2.1 MG/DL (1.8-2.4); POTASSIUM SERUM 3.9 MEQ/L (3.5-5.1)
[2021-01-10] MEDS: HumaLOG INSULIN (NovoLOG) PER UNIT SC SCH ×4 (08:47→21:00)
[2021-01-10] MEDS: PANTOPRAZOLE 40MG VIAL (C9113 PER 1) IV SCH ×2 (08:47→22:16)
[2021-01-10] MEDS: dexameTHASONE 20MG/5ML VIAL (J1100 PER 1MG) IV SCH (08:47)
[2021-01-10] MEDS: LEVEMIR (INSULIN DETEMIR) 1 UNITS/0.01ML SC SCH (08:47)
[2021-01-10] MEDS: allopurinoL 100 MG TAB PO SCH (08:48)
[2021-01-10 08:52] LABS: LYMPHOCYTES 7 % (16-44); METAMYELOCYTES 1 % (0-0); MONOCYTES 1 % (0-5); MYELOCYTES 2 % (0-0); NEUTROPHILS 85 % (28-66)
[2021-01-10 08:53] LABS: PLATELET ESTIMATE NORMAL (NORMAL)
[2021-01-10] MEDS ORDERED: FUROSEMIDE 20MG/2ML VIAL (J1940) IV ONE (12:10)
[2021-01-10 14:00] VITALS: BP 152/65
--- NOTE | 2021-01-10 15:41 | IPNPDOC ---
Text Note Date of Service The patient was seen on 01/10/21. NOTE Subjective: Patient is a 70-year-old female was hospitalized due to COVID-19. Patient was found to have a retroperitoneal intra-abdominal hematoma in the setting of coagulopathy. Patient is feeling better today and does not complain of any abdominal pain. Patient is not fully alert and oriented which is a change from her baseline. Patient was living at home alone prior to coming into the hospital for this. Patient's oxygenation is better but if the oxygen come out and she goes on to room air, patient does desaturate very quickly. Patient is otherwise doing well at this time. Review of systems: General: Patient denies fevers HEENT: Patient denies headaches Cardiovascular: Patient denies chest pain Respiratory: Patient denies shortness of breath, cough GI: Patient denies abdominal pain, nausea, vomiting, diarrhea : Patient denies increased frequency or pain with urination Extremities: Patient denies swelling or pain in extremities Neurological: Patient denies numbness or tingling in legs Physical exam: Vitals: See below General: Alert to person and place but not time female who was laying in bed when I walked in. Patient's nasal cannula oxygen was out of her nose and she was satting in the mid 80s. Patient did not appear to be in any acute distress. HEENT: Normocephalic, atraumatic, moist mucous membranes. Neck: No lymphadenopathy or thyromegaly Cardiac: Regular rate and rhythm, no murmurs, normal S1, normal S2 Pulm: Diminished breath sounds bilaterally Abd: Nondistended, nontender to palpation, normal bowel sounds Ext: No edema bilateral lower extremities Labs: See below Imaging: No new imaging has been performed Assessment/plan: 70-year-old female who is from a senior care facility who presented with cough and shortness of breath and was diagnosed with COVID-19 on 12/28/2020 at [facility] when she was admitted for generalized body shaking for a stroke rule out. Patient is slowly improving. 1. Acute hypoxic respiratory failure secondary to COVID-19. This is improved and patient is only on 1 L of oxygen however, when the patient has the oxygen removed from her nose, she desats into the mid to low 80s while at rest. Patient will need to continue on oxygen therapy at this time. 2. COVID-19. Has finished remdesivir and dexamethasone. 3. A. fib with RVR. Patient's heart rate is now within normal limits. Due to the retroperitoneal intra-abdominal hematoma, anticoagulation is on hold. 4. Retroperitoneal hematoma and rectus sheath hematoma. Lovenox, Plavix, and aspirin have been stopped. Patient received protamine sulfate, DDAVP, FFP and packed red blood cells. Hydrometer Tester consults have been placed as well surgical consult. I appreciate their input and help and treat the patient. Patient is doing well at this time. 5. Acute blood loss anemia. Due to above. Packed red blood cell transfusion. Hemoglobin stable at this time. 6. Hypovolemic shock. Due to acute blood loss. Patient is now hemodynamically stable. 7. ROSA on CKD stage IV single kidney. Baseline creatinine 1.7-2. This is improving and the last creatinine was around 2. Nephrology is following the patient I appreciate their help treating the patient. 8. Acute metabolic encephalopathy due to hypoxia medications. Discontinue Ambien, gabapentin, amitriptyline. Patient appears to be improving. 9. Type 2 diabetes mellitus. Continue Levemir and lispro. 10. Coronary artery disease status post stenting in 2007 and 2009. Aspirin Plavix been held due to retroperitoneal bleeding aspirin can be started to jones. 11. Systolic diastolic CHF. EF of 35 to 40%. Not in acute exacerbation. 12. Hypertension. Recently hypotensive. Metoprolol and Imdur on hold. Continue to monitor blood pressure. 13. Hyperlipidemia. Continue atorvastatin. 14. Hypothyroidism. Continue Synthroid. 15. GERD. Continue Protonix. 16. Gout. Continue allopurinol. 17. Leukocytosis. Antibiotics were broadened to Zosyn due to elevated leukocytosis procalcitonin. Leukocytosis may be reactionary to the patient's hematomas. Continue to monitor and she is improving. DVT Prophylaxis: Teds and sequentials Disposition: Pending clinical improvement, patient may need placement VS,Fishbone, I+O VS, Fishbone, I+O Laboratory Tests 01/10/21 07:16 Vital Signs Date Time Temp Pulse Resp B/P (MAP) Pulse Ox O2 Delivery O2 Flow Rate FiO2 01/10/21 14:00 98.2 93 20 152/65 (94) 92 High Flow Cannula 2.0 01/08/21 06:00 32 I&O- Last 24 Hours up to 6 AM 01/10/21 06:00 Intake Total 730 ml Output Total 4325 ml Balance -3595 ml PAOLA MARISCAL DO Jan 10, 2021 15:41
--- NOTE | 2021-01-10 17:10 | IPNPDOC ---
Subjective CC/HPI The patient is a 70-year-old female admitted with a reason for visit of Pneumonia Due To Covid-19 Virus. Events since last encounter Pt was seen at bedside in COVID 19 ICU. She was given Lasix 40 mg IV yesterday and she did have a good urine output. UOP 3850/450 so far since yesterday. Renal function is improving. Cr 2.2-->2 today. Hb stable 8.6-->8.9 now. O2 requirement is ~1-2 L and she is saturating 88%. General: Denies: Chills, Night Sweats Constitutional: Denies: Chills, Fever Eyes: Denies: Pain, Vision change ENT: Denies: Head Aches Skin: Denies: Rash, Lesions Pulmonary: Reports: Dyspnea; Denies: Cough Cardiovascular: Denies: Chest Pain, Palpitations Gastrointestinal: Denies: Nausea, Vomiting Genitourinary: Reports: Other Symptoms (Kaufman); Denies: Dysuria Hematologic: Reports: Bruising Musculoskeletal: Denies: Neck Pain, Back Pain Neurological: Reports: Weakness Psych: Reports: Mood Normal Objective Physical Examination General Exam: Cooperative, No Acute Distress EYE EXAM: PERRLA, Conjunctiva & lids normal, EOMI ENT EXAM: Atraumatic, Mucous membr. moist/pink Neck Exam: Supple; No: JVD Chest Exam: Rales, Other (Requiring Nasal canula @1L) Heart Exam: Rate Normal; No: Murmurs, Rubs ABDOMEN EXAM: Normal bowel sounds, Soft, Tenderness (Rectus sheath hematoma. Abdominal wall bruises.) Extremity Exam: No: Clubbing, Cyanosis, Edema Skin Exam: Nl turgor and temperature, Lesion (echymosis); No: Rash Neuro Exam: Normal Speech, Strength at 5/5 X4 ext Psych Exam: Mental status NL, Mood NL, Oriented x 3 Vital Signs/I&O Vital Signs Date Time Temp Pulse Resp B/P (MAP) Pulse Ox O2 Delivery O2 Flow Rate FiO2 01/10/21 14:00 98.2 93 20 152/65 (94) 92 High Flow Cannula 2.0 01/08/21 06:00 32 I&O- Last 24 Hours up to 6 AM 01/10/21 06:00 Intake Total 730 ml Output Total 4325 ml Balance -3595 ml Laboratory Data Labs 24H Laboratory Tests 2 01/09/21 21:21: Bedside Glucose (Misc Panel) 290H 01/10/21 07:16: Immature Granulocyte % (Auto) , Neutrophils (%) (Auto) , Nucleated Red Blood Cells % (auto) 0.9H, Neutrophils 85H, Band Neutrophils 4, Lymphocytes (Manual) 7L, Monocytes (Manual) 1, Metamyelocytes 1H, Myelocytes 2H, Platelet Estimate NORMAL, Anion Gap 8, Glomerular Filtration Rate 25.9L, Calcium Level 8.6L, Magnesium Level 2.1 01/10/21 11:59: Bedside Glucose (Misc Panel) 154H 01/10/21 16:29: Bedside Glucose (Misc Panel) 189H CBC/BMP Laboratory Tests 01/10/21 07:16 FSBS Laboratory Tests Test 01/09/21 21:21 01/10/21 11:59 01/10/21 16:29 Range/Units Bedside Glucose (Misc Panel) 290 154 189 80-115 MG/DL Current Medications Current Medications Medications (Trade) Dose Ordered Sig/Berna Route PRN Reason Start Time Stop Time Status Last Admin Dose Admin Acetaminophen (Tylenol Tab) 650 mg Q4HP PRN PO mild pain/fever 01/02/21 03:45 01/05/21 08:58 Albuterol Sulfate (Proventil Neb) 2.5 mg RQ6H NEB 01/04/21 14:00 01/07/21 13:40 DC 01/06/21 20:37 Albuterol Sulfate (Proventil, Ventolin Hfa) 2 puff Q6HP PRN INH SHORTNESS OF BREATH 01/07/21 13:40 Albuterol/ Ipratropium (Duoneb (Ipr 0.5mg/Alb 2.5mg)) 3 ml Q4HP PRN NEB sob 01/02/21 03:45 01/07/21 13:40 DC 01/07/21 01:14 Allopurinol (Zyloprim) 100 mg DAILY PO 01/02/21 09:00 01/10/21 08:48 Amiodarone HCl 150 mg/IV Miscellaneous Supplies 100 ml @ 600 mls/hr NOW IV 01/07/21 05:10 01/07/21 05:19 DC 01/07/21 05:37 Amitriptyline HCl (Elavil) 25 mg DAILY PO 01/02/21 09:00 01/06/21 09:24 DC 01/05/21 08:58 Aspirin (Ecotrin) 81 mg DAILY PO 01/02/21 09:00 01/06/21 10:15 DC 01/06/21 09:44 Atorvastatin Calcium (Lipitor) 10 mg DAILY PO 01/02/21 09:00 01/06/21 07:25 DC 01/05/21 08:58 Ceftriaxone Sodium 1 gm/ Dextrose 50 ml @ 100 mls/hr Q24H IV 01/02/21 17:00 01/06/21 07:35 DC 01/05/21 16:57 Clopidogrel Bisulfate (PLAVix) 75 mg DAILY PO 01/02/21 09:00 01/06/21 09:24 DC 01/05/21 08:57 Dexamethasone (Decadron) 6 mg DAILY IV 01/02/21 09:00 01/03/21 15:10 DC 01/03/21 09:38 Dexamethasone (Decadron) 10 mg BID IV 01/03/21 21:00 01/06/21 10:15 DC 01/06/21 09:45 Dexamethasone (Decadron) 10 mg DAILY IV 01/07/21 09:00 01/10/21 08:47 Dextrose (Dextrose 50%) 25 ml ASDIRECTED PRN IV SEE LABEL COMMENTS 01/02/21 03:45 Enalapril Maleate (Vasotec) 5 mg BID PO 01/02/21 09:00 01/02/21 07:02 DC Enoxaparin Sodium (Lovenox) 40 mg BID SC 01/03/21 21:00 01/06/21 09:24 DC 01/05/21 22:51 Enoxaparin Sodium (Lovenox) 40 mg Q24H SC 01/02/21 09:00 01/02/21 16:07 DC 01/02/21 08:27 Enoxaparin Sodium (Lovenox) 40 mg Q24H SC 01/03/21 09:00 01/03/21 19:48 DC 01/03/21 09:45 EZETIMIBE (Zetia) 10 mg DAILY PO 01/02/21 09:00 01/06/21 07:25 DC 01/05/21 08:58 Ferrous Sulfate (Ferrous Sulfate) 325 mg DAILY PO 01/02/21 09:00 01/06/21 07:25 DC 01/05/21 08:57 Furosemide (Lasix) 80 mg BID@0900,1700 PO 01/02/21 09:00 01/02/21 07:02 DC Gabapentin (Neurontin) 300 mg TID PO 01/02/21 09:00 01/02/21 05:16 DC Glucagon (Glucagon) 1 mg ASDIRECTED PRN SC SEE LABEL COMMENTS 01/02/21 03:45 Glucose (Glucose) 16 GM ASDIRECTED PRN PO SEE LABEL COMMENTS 01/02/21 03:45 Haloperidol (Haldol) 5 mg STAT STAT IM 01/06/21 13:13 01/06/21 13:18 DC 01/06/21 13:30 Home Med (Home Med List Complete!) ASDIRECTED XX 01/02/21 03:55 01/02/21 03:54 DC Insulin Detemir (Levemir Insulin) 20 units DAILY SC 01/02/21 09:00 01/10/21 08:47 Insulin Human Lispro (HumaLOG INSULIN) SEE PROTOCOL TABLE AC SC 01/02/21 07:30 01/10/21 13:01 Insulin Human Lispro (HumaLOG INSULIN) SEE PROTOCOL TABLE QHS SC 01/02/21 21:00 01/09/21 21:41 Isosorbide Mononitrate (Imdur) 30 mg DAILY PO 01/02/21 09:00 01/06/21 09:24 DC 01/05/21 08:57 Levothyroxine Sodium (Synthroid) 150 mcg DAILY PO 01/02/21 09:00 01/04/21 09:13 DC 01/03/21 09:38 Levothyroxine Sodium (Synthroid) 150 mcg DAILY@0600 PO 01/04/21 06:00 01/10/21 05:47 Metoprolol Tartrate (Lopressor) 5 mg STAT STAT IV 01/07/21 15:59 01/07/21 16:00 DC 01/07/21 16:13 Metoprolol Tartrate (Lopressor) 25 mg BID PO 01/02/21 21:00 01/05/21 11:02 DC 01/05/21 09:09 Metoprolol Tartrate (Lopressor) 25 mg Q6H PO 01/08/21 18:00 01/10/21 13:02 Metoprolol Tartrate (Lopressor) 50 mg BID PO 01/02/21 09:00 01/02/21 16:02 DC 01/02/21 08:29 Metoprolol Tartrate (Lopressor) 50 mg BID PO 01/05/21 21:00 01/06/21 07:25 DC 01/05/21 22:49 Morphine Sulfate (Morphine Sulfate Inj) 2 mg Q4H PRN IV PAIN LEVEL 6-10 01/06/21 09:15 01/08/21 12:10 DC 01/06/21 19:20 Ondansetron HCl (ZOFRAN INJection) 4 mg Q6HP PRN IV NAUSEA OR VOMITING 01/05/21 08:25 01/06/21 03:24 Pantoprazole Sodium (Protonix) 40 mg BID IV 01/06/21 09:00 01/10/21 08:47 Pantoprazole Sodium (Protonix) 40 mg BID PO 01/03/21 21:00 01/06/21 09:24 DC 01/05/21 22:50 Pantoprazole Sodium (Protonix) 40 mg DAILY PO 01/02/21 09:00 01/03/21 15:10 DC 01/03/21 09:39 Piperacillin Sod/ Tazobactam Sod 2.25 gm/Dextrose 50 ml @ 50 mls/hr Q6H IV 01/10/21 16:00 Piperacillin Sod/ Tazobactam Sod 2.25 gm/Dextrose 50 ml @ 50 mls/hr Q8H IV 01/06/21 10:00 01/10/21 14:53 DC 01/10/21 10:51 Protamine Sulfate (Protamine Sulfate) 20 mg STAT STAT IV 01/06/21 11:06 01/06/21 11:11 DC 01/06/21 14:06 Ramelteon (Rozerem) 8 mg QHS PRN PO INSOMNIA 01/09/21 21:45 01/09/21 22:22 Remdesivir 100 mg/ Sodium Chloride 270 ml @ 270 mls/hr Q24H IV 01/03/21 06:00 01/07/21 05:59 DC 01/06/21 18:20 Sodium Chloride 1,000 ml @ 70 mls/hr [id number] IV 01/06/21 09:15 01/08/21 10:17 DC 01/08/21 01:33 Sodium Chloride 1,000 ml @ 100 mls/hr Q10H IV 01/02/21 01:35 01/02/21 07:02 DC 01/02/21 01:50 Sodium Chloride (Saline Lock Flush) 30 ml Q24H IV 01/03/21 07:00 01/07/21 06:59 DC 01/06/21 19:20 Tramadol HCl (Ultram) 50 mg Q8HP PRN PO PAIN LEVEL 6-10 01/05/21 18:40 01/06/21 09:24 DC 01/05/21 18:55 Vancomycin HCl 750 mg/IV Miscellaneous Supplies 1 each/ Sodium Chloride 275 ml @ 275 mls/hr Q24H IV 01/03/21 19:00 01/04/21 10:59 DC 01/03/21 21:43 Vancomycin HCl 1000 mg/IV Miscellaneous Supplies 1 each/ Sodium Chloride 270 ml @ 270 mls/hr Q12H IV 01/02/21 16:10 01/02/21 18:05 DC Zolpidem Tartrate (Ambien) 5 mg QPMP PRN PO sleep 01/02/21 05:05 01/02/21 15:54 DC Allergies Coded Allergies: Macrolide Antibiotics (Verified Allergy, Unknown, 12/23/19) Penicillins (Verified Allergy, Unknown, 12/23/19) Quinolones (Verified Allergy, Unknown, 02/01/20) codeine (Verified Allergy, Unknown, 12/23/19) erythromycin base (Verified Allergy, Unknown, 12/23/19) morphine (Verified Allergy, Unknown, 12/23/19) nitroglycerin (Verified Allergy, Unknown, PATCHES, 02/01/20) ranolazine (Verified Allergy, Unknown, 02/01/20) telithromycin (Verified Allergy, Unknown, 12/23/19) Assessment/Plan Date Seen The patient was seen on 01/10/21 in AM at [place] [id number] unit. Plan / VTE VTE Prophylaxis Ordered?: Yes Plan Orders past 48 Hours Orders Fingerstick Blood Sugar (01/08/21 16:55) Fingerstick Blood Sugar (01/08/21 22:09) * Nursing Order * (01/09/21 01:34) * Nursing Order * (01/09/21 06:23) Fingerstick Blood Sugar (01/09/21 07:39) Differential No Charge (01/09/21 07:43) Platelet Estimate (01/09/21 07:43) Complete Blood Count (01/11/21 06:00) Complete Blood Count (01/12/21 06:00) Complete Blood Count (01/13/21 06:00) Complete Blood Count (01/14/21 06:00) Complete Blood Count (01/15/21 06:00) Complete Blood Count (01/16/21 06:00) Basic Metabolic Profile (01/10/21 06:00) Basic Metabolic Profile (01/11/21 06:00) Basic Metabolic Profile (01/12/21 06:00) Basic Metabolic Profile (01/13/21 06:00) Basic Metabolic Profile (01/14/21:00) Basic Metabolic Profile (01/15/21 06:00) Basic Metabolic Profile (01/16/21 06:00) Magnesium Level (01/10/21 06:00) Magnesium Level (01/11/21 06:00) Magnesium Level (01/12/21 06:00) Magnesium Level (01/13/21 06:00) Magnesium Level (01/14/21 06:00) Magnesium Level (01/15/21 06:00) Magnesium Level (01/16/21 06:00) Furosemide Injection (Lasix Injection) (01/09/21 11:50) Fingerstick Blood Sugar (01/09/21 12:41) Fingerstick Blood Sugar (01/09/21 16:35) Fingerstick Blood Sugar (01/09/21 21:21) Ramelteon (Rozerem) (01/09/21 21:45) Differential No Charge (01/10/21 07:16) Platelet Estimate (01/10/21 07:16) Pt Eval & Tx As Needed (01/10/21 10:36) Ot Eval & Treat As Needed (01/10/21 10:36) Fingerstick Blood Sugar (01/10/21 11:59) Furosemide Injection (Lasix Injection) (01/10/21 12:10) Attending Doctor Change: (01/10/21 12:35) Piperacillin/Tazobactam Sod (Zosyn) (01/10/21 16:00) Fingerstick Blood Sugar (01/10/21 16:29) Plan Text 1. Acute renal failure on CKD 3/CKD 4, baseline creatinine of 1.7.Solitary kidney: Renal function is improving. Cr 2.2-->2. now. OK to use diuretic now. 2. Retroperitoneal bleed and Rectus sheath hematoma: Hb is stable now. transfuse PRBC for Hb<8. 3. Acute hypoxic respiratory failure secondary to COVID-19 pneumonia-->Improving. Patient is on nasal canula. She is on Decadron. Optimize fluid status with Lasix. Another dose of 20 mg ordered today. 4. Diabetes mellitus type 2. Okay to continue insulin sliding scale and Levemir. 5. Chronic gout secondary to chronic kidney disease. Restart Allopurinol now. 6. LE Edema: Lasix 20 mg IV one dose ordered today. start torsemide tomorrow AM MIRIAN KRUEGER MD Jan 10, 2021 17:10
[2021-01-10 20:00] VITALS: BP 131/60
[2021-01-10] MEDS: ACETAMINOPHEN TAB 650MG DOSE (2X325MG) PO PRN (22:16)
[2021-01-10] MEDS: RAMELTEON 8 MG TAB (ROZEREM) PO PRN (22:16)
[2021-01-11] VITALS: O2SAT 95
[2021-01-11] MEDS: PIPERACILLIN/TAZOBACTAM SOD 2.25 GM in D5W MINI-BAG PLUS 50 ML IV SCH ×4 (04:28→22:36)
[2021-01-11] MEDS: METOPROLOL TART 25 MG TABLET PO SCH ×4 (05:55→17:48)
[2021-01-11] MEDS: LEVOTHYROXINE 150MCG TABLET (0.15MG) PO SCH (05:55)
[2021-01-11 07:02] LABS: HEMATOCRIT 27.9 % (36.0-47.0); HEMOGLOBIN 9.2 g/dl (12.0-15.5); MEAN CORPUSCULAR HEMOGLOBIN 30.8 pg (27.0-33.0); MEAN CORPUSCULAR VOLUME 93.3 fl (80.0-96.0); PLATELET COUNT, AUTOMATED 210 10^3/uL (150-450); RED BLOOD COUNT 2.99 10^6/uL (4.00-5.40); WHITE BLOOD COUNT 19.9 10^3/uL (4.0-10.0)
[2021-01-11 07:27] LABS: CALCIUM LEVEL 8.1 MG/DL (8.8-10.2); CREATININE FOR GFR 1.83 MG/DL (0.55-1.30); GLOMERULAR FILTRATION RATE 29.1 (>45); MAGNESIUM LEVEL 2.1 MG/DL (1.8-2.4); POTASSIUM SERUM 3.2 MEQ/L (3.5-5.1)
[2021-01-11] MEDS: LEVEMIR (INSULIN DETEMIR) 1 UNITS/0.01ML SC SCH (09:35)
[2021-01-11] MEDS: HumaLOG INSULIN (NovoLOG) PER UNIT SC SCH ×4 (09:36→20:11)
[2021-01-11] MEDS: PANTOPRAZOLE 40MG VIAL (C9113 PER 1) IV SCH ×2 (09:36→22:37)
[2021-01-11] MEDS: allopurinoL 100 MG TAB PO SCH (09:36)
[2021-01-11] MEDS: TORSEMIDE 20 MG TAB PO SCH (09:36)
[2021-01-11] MEDS: LACTOBACILLUS ACIDOPHILUS CAP (BACID) PO SCH (09:36)
[2021-01-11] MEDS: dexameTHASONE 20MG/5ML VIAL (J1100 PER 1MG) IV SCH (09:36)
[2021-01-11] MEDS ORDERED: POTASSIUM CHLORIDE 10MEQ SR TABLET PO ONE (10:00)
[2021-01-11 14:00] VITALS: BP 139/73
--- NOTE | 2021-01-11 14:49 | IPNPDOC ---
Text Note Date of Service The patient was seen on 01/11/21. NOTE Subjective: Patient is a 70-year-old female was hospitalized due to COVID-19. Patient was found to have a retroperitoneal and intra-abdominal hematoma in the setting of a coagulopathy. Patient is doing better today. Patient started working with physical therapy. Patient was living at home alone prior to coming to the hospital. Patient's oxygenation is better however, she can only tolerate being on 1 L and when switched to room air, her oxygen saturation falls very qu ickly. Patient denies having any pain at this time and is doing otherwise well. Review of systems: General: Patient denies fevers HEENT: Patient denies headaches Cardiovascular: Patient denies chest pain Respiratory: Patient denies shortness of breath, cough GI: Patient denies abdominal pain, nausea, vomiting, diarrhea : Patient denies increased frequency or pain with urination Extremities: Patient denies swelling or pain in extremities Neurological: Patient denies numbness or tingling in legs Physical exam: Vitals: See below General: Alert and oriented female who was sitting up on the edge of the bed when I walked in. Patient had nasal cannula oxygen in place. Patient did not appear to be in any acute distress. HEENT: Normocephalic, atraumatic, moist mucous membranes. Neck: No lymphadenopathy or thyromegaly Cardiac: Regular rate and rhythm, no murmurs, normal S1, normal S2 Pulm diminished breath sounds bilaterally Abd: Nondistended, nontender to palpation, normal bowel sounds Ext: No edema bilateral lower extremities Labs: See below Imaging: No new imaging has been performed Assessment/plan: 70-year-old female who is [facility] presents with a cough and shortness of breath and was diagnosed with COVID-19 on 12/28/2020 at [facility] where she was admitted for generalized body shaking for a stroke rule out. Patient is slowly improving. 1. Acute hypoxic respiratory failure secondary to COVID-19. This is improving patient is only on 1 L of oxygen however, this may be a chronic thing is a patient well desat when she is on room air. Patient will most likely need to go home on oxygen if we are unable to continue to wean her down. 2. COVID-19. Has finished remdesivir and dexamethasone. 3. Atrial fibrillation with RVR. This is resolved. Patient's heart rate is now the normal limits. Anticoagulation on hold due to retroperitoneal and intra-abdominal hematomas. 4. Retroperitoneal and rectus sheath hematoma. Lovenox, Plavix, aspirin have been stopped. Patient received protamine sulfate, DDAVP, FFP, and packed red blood cells. Coating Inspector consult and surgical consult were placed and have since signed off as the patient is stable at this time. 5. Acute blood loss anemia. Due to above. Status post transfusion. Hemoglobin stable at this time. 6. Hypovolemic shock, resolved. Due to acute blood loss. Patient is now hemodynamically stable. 7. ROSA on CKD stage IV with sacral kidney. Patient's creatinine continues to improve towards baseline. Nephrology is following patient I appreciate their help treating the patient. 8. Acute metabolic encephalopathy due to medications. Medications have been discontinued patient appears to be improving. 9. Type 2 diabetes mellitus. Continue Levemir and lispro. 10. Coronary artery disease status post stenting. Aspirin can be restarted today. 11. Heart failure with reduced ejection fraction. EF 35 to 40%. Not in acute exacerbation. 12. Hypertension. Metoprolol and Imdur on hold. Continue to monitor blood pressure. 13. Hyperlipidemia. Continue atorvastatin. 14. Hypothyroidism. Continue Synthroid. 15. GERD. Continue Protonix. 16. Gout. Continue allopurinol. 17. Leukocytosis. Patient is currently on Zosyn due to elevated leukocytosis and procalcitonin. Leukocytosis may also be reactionary to the patient's hematomas. This is slowly improving. DVT Prophylaxis: Teds and sequentials Disposition: Pending clinical improvement, patient will continue to work with physical therapy. VS,Brentone, I+O VS, Brentone, I+O Laboratory Tests 01/11/21 06:41 Vital Signs Date Time Temp Pulse Resp B/P (MAP) Pulse Ox O2 Delivery O2 Flow Rate FiO2 01/11/21 14:00 96.6 70 19 139/73 (95) 94 High Flow Cannula 1.0 01/08/21 06:00 32 I&O- Last 24 Hours up to 6 AM 01/11/21 05:59 Intake Total 820 ml Output Total 2550 ml Balance -1730 ml PAOLA MARISCAL DO Jan 11, 2021 14:49
[2021-01-11] MEDS: ASPIRIN 81MG ENTERIC TABLET PO SCH (16:05)
[2021-01-11 22:00] VITALS: BP 166/79
--- NOTE | 2021-01-11 22:07 | IPNPDOC ---
Subjective CC/HPI The patient is a 70-year-old female admitted with a reason for visit of Pneumonia Due To Covid-19 Virus. Events since last encounter Pt was seen in isolation unit. She is feeling better, Still on O2 via NC@1L. O2 sat in 90s now. Renal function continues to improve. Cr 2-->1.8 now. UOP 2350/200 by the time I saw him in AM. General: Denies: Chills, Night Sweats Constitutional: Denies: Chills, Fever Eyes: Denies: Pain, Vision change ENT: Denies: Head Aches, Ear Pain Skin: Denies: Rash, Lesions Pulmonary: Reports: Dyspnea; Denies: Cough Cardiovascular: Denies: Chest Pain, Palpitations Gastrointestinal: Denies: Nausea, Vomiting Genitourinary: Denies: Dysuria, Frequency Hematologic: Reports: Bruising; Denies: Bleeding Excessively Musculoskeletal: Denies: Neck Pain, Back Pain Neurological: Reports: Weakness; Denies: Numbness Psych: Reports: Mood Normal Objective Physical Examination General Exam: Cooperative, No Acute Distress EYE EXAM: PERRLA, Conjunctiva & lids normal, EOMI ENT EXAM: Atraumatic, Mucous membr. moist/pink Neck Exam: Supple; No: JVD Chest Exam: Rales, Other (Requiring Nasal canula @1L) Heart Exam: Rate Normal; No: Murmurs, Rubs ABDOMEN EXAM: Normal bowel sounds, Soft; No: Tenderness Extremity Exam: No: Clubbing, Cyanosis, Edema Skin Exam: Nl turgor and temperature, Lesion (echymosis); No: Rash Neuro Exam: Normal Speech, Strength at 5/5 X4 ext Psych Exam: Mental status NL, Mood NL, Oriented x 3 Vital Signs/I&O Vital Signs Date Time Temp Pulse Resp B/P (MAP) Pulse Ox O2 Delivery O2 Flow Rate FiO2 01/11/21 17:48 62 164/80 01/11/21 14:00 96.6 19 94 High Flow Cannula 1.0 01/08/21 06:00 32 I&O- Last 24 Hours up to 6 AM 01/11/21 06:00 Intake Total 710 ml Output Total 2100 ml Balance -1390 ml Laboratory Data Labs 24H Laboratory Tests 2 01/11/21 06:41: Nucleated Red Blood Cells % (auto) 0.5H, Anion Gap 5L, Glomerular Filtration Rate 29.1L, Calcium Level 8.1L, Magnesium Level 2.1 01/11/21 12:24: Bedside Glucose (Misc Panel) 160H 01/11/21 17:01: Bedside Glucose (Misc Panel) 176H 01/11/21 19:52: Bedside Glucose (Misc Panel) 177H CBC/BMP Laboratory Tests 01/11/21 06:41 FSBS Laboratory Tests Test 01/11/21 12:24 01/11/21 17:01 01/11/21 19:52 Range/Units Bedside Glucose (Misc Panel) 160 176 177 80-115 MG/DL Current Medications Current Medications Medications (Trade) Dose Ordered Sig/Berna Route PRN Reason Start Time Stop Time Status Last Admin Dose Admin Acetaminophen (Tylenol Tab) 650 mg Q4HP PRN PO mild pain/fever 01/02/21 03:45 01/10/21 22:16 Albuterol Sulfate (Proventil Neb) 2.5 mg RQ6H NEB 01/04/21 14:00 01/07/21 13:40 DC 01/06/21 20:37 Albuterol Sulfate (Proventil, Ventolin Hfa) 2 puff Q6HP PRN INH SHORTNESS OF BREATH 01/07/21 13:40 Albuterol/ Ipratropium (Duoneb (Ipr 0.5mg/Alb 2.5mg)) 3 ml Q4HP PRN NEB sob 01/02/21 03:45 01/07/21 13:40 DC 01/07/21 01:14 Allopurinol (Zyloprim) 100 mg DAILY PO 01/02/21 09:00 01/11/21 09:36 Amiodarone HCl 150 mg/IV Miscellaneous Supplies 100 ml @ 600 mls/hr NOW IV 01/07/21 05:10 01/07/21 05:19 DC 01/07/21 05:37 Amitriptyline HCl (Elavil) 25 mg DAILY PO 01/02/21 09:00 01/06/21 09:24 DC 01/05/21 08:58 Aspirin (Ecotrin) 81 mg DAILY PO 01/11/21 15:30 01/11/21 16:05 Aspirin (Ecotrin) 81 mg DAILY PO 01/02/21 09:00 01/06/21 10:15 DC 01/06/21 09:44 Atorvastatin Calcium (Lipitor) 10 mg DAILY PO 01/02/21 09:00 01/06/21 07:25 DC 01/05/21 08:58 Ceftriaxone Sodium 1 gm/ Dextrose 50 ml @ 100 mls/hr Q24H IV 01/02/21 17:00 01/06/21 07:35 DC 01/05/21 16:57 Clopidogrel Bisulfate (PLAVix) 75 mg DAILY PO 01/02/21 09:00 01/06/21 09:24 DC 01/05/21 08:57 Dexamethasone (Decadron) 6 mg DAILY IV 01/02/21 09:00 01/03/21 15:10 DC 01/03/21 09:38 Dexamethasone (Decadron) 10 mg BID IV 01/03/21 21:00 01/06/21 10:15 DC 01/06/21 09:45 Dexamethasone (Decadron) 10 mg DAILY IV 01/07/21 09:00 01/11/21 09:36 Dextrose (Dextrose 50%) 25 ml ASDIRECTED PRN IV SEE LABEL COMMENTS 01/02/21 03:45 Enalapril Maleate (Vasotec) 5 mg BID PO 01/02/21 09:00 01/02/21 07:02 DC Enoxaparin Sodium (Lovenox) 40 mg BID SC 01/03/21 21:00 01/06/21 09:24 DC 01/05/21 22:51 Enoxaparin Sodium (Lovenox) 40 mg Q24H SC 01/02/21 09:00 01/02/21 16:07 DC 01/02/21 08:27 Enoxaparin Sodium (Lovenox) 40 mg Q24H SC 01/03/21 09:00 01/03/21 19:48 DC 01/03/21 09:45 EZETIMIBE (Zetia) 10 mg DAILY PO 01/02/21 09:00 01/06/21 07:25 DC 01/05/21 08:58 Ferrous Sulfate (Ferrous Sulfate) 325 mg DAILY PO 01/02/21 09:00 01/06/21 07:25 DC 01/05/21 08:57 Furosemide (Lasix) 80 mg BID@0900,1700 PO 01/02/21 09:00 01/02/21 07:02 DC Gabapentin (Neurontin) 300 mg TID PO 01/02/21 09:00 01/02/21 05:16 DC Glucagon (Glucagon) 1 mg ASDIRECTED PRN SC SEE LABEL COMMENTS 01/02/21 03:45 Glucose (Glucose) 16 GM ASDIRECTED PRN PO SEE LABEL COMMENTS 01/02/21 03:45 Haloperidol (Haldol) 5 mg STAT STAT IM 01/06/21 13:13 01/06/21 13:18 DC 01/06/21 13:30 Home Med (Home Med List Complete!) ASDIRECTED XX 01/02/21 03:55 01/02/21 03:54 DC Insulin Detemir (Levemir Insulin) 20 units DAILY SC 01/02/21 09:00 01/11/21 09:35 Insulin Human Lispro (HumaLOG INSULIN) SEE PROTOCOL TABLE AC SC 01/02/21 07:30 01/11/21 17:45 Insulin Human Lispro (HumaLOG INSULIN) SEE PROTOCOL TABLE QHS SC 01/02/21 21:00 01/09/21 21:41 Isosorbide Mononitrate (Imdur) 30 mg DAILY PO 01/02/21 09:00 01/06/21 09:24 DC 01/05/21 08:57 Lactobacillus Acidophilus (Bacid) 1 ea DAILY PO 01/11/21 09:00 01/11/21 09:36 Levothyroxine Sodium (Synthroid) 150 mcg DAILY PO 01/02/21 09:00 01/04/21 09:13 DC 01/03/21 09:38 Levothyroxine Sodium (Synthroid) 150 mcg DAILY@0600 PO 01/04/21 06:00 01/11/21 05:55 Metoprolol Tartrate (Lopressor) 5 mg STAT STAT IV 01/07/21 15:59 01/07/21 16:00 DC 01/07/21 16:13 Metoprolol Tartrate (Lopressor) 25 mg BID PO 01/02/21 21:00 01/05/21 11:02 DC 01/05/21 09:09 Metoprolol Tartrate (Lopressor) 25 mg Q6H PO 01/08/21 18:00 01/11/21 17:48 Metoprolol Tartrate (Lopressor) 50 mg BID PO 01/02/21 09:00 01/02/21 16:02 DC 01/02/21 08:29 Metoprolol Tartrate (Lopressor) 50 mg BID PO 01/05/21 21:00 01/06/21 07:25 DC 01/05/21 22:49 Morphine Sulfate (Morphine Sulfate Inj) 2 mg Q4H PRN IV PAIN LEVEL 6-10 01/06/21 09:15 01/08/21 12:10 DC 01/06/21 19:20 Ondansetron HCl (ZOFRAN INJection) 4 mg Q6HP PRN IV NAUSEA OR VOMITING 01/05/21 08:25 01/06/21 03:24 Pantoprazole Sodium (Protonix) 40 mg BID IV 01/06/21 09:00 01/11/21 09:36 Pantoprazole Sodium (Protonix) 40 mg BID PO 01/03/21 21:00 01/06/21 09:24 DC 01/05/21 22:50 Pantoprazole Sodium (Protonix) 40 mg DAILY PO 01/02/21 09:00 01/03/21 15:10 DC 01/03/21 09:39 Piperacillin Sod/ Tazobactam Sod 2.25 gm/Dextrose 50 ml @ 50 mls/hr Q6H IV 01/10/21 16:00 01/11/21 16:05 Piperacillin Sod/ Tazobactam Sod 2.25 gm/Dextrose 50 ml @ 50 mls/hr Q8H IV 01/06/21 10:00 01/10/21 14:53 DC 01/10/21 10:51 Potassium Chloride (Micro-K Extencaps) 20 meq DAILY PO 01/12/21 09:00 Protamine Sulfate (Protamine Sulfate) 20 mg STAT STAT IV 01/06/21 11:06 01/06/21 11:11 DC 01/06/21 14:06 Ramelteon (Rozerem) 8 mg QHS PRN PO INSOMNIA 01/09/21 21:45 01/10/21 22:16 Remdesivir 100 mg/ Sodium Chloride 270 ml @ 270 mls/hr Q24H IV 01/03/21 06:00 01/07/21 05:59 DC 01/06/21 18:20 Sodium Chloride 1,000 ml @ 70 mls/hr [id number] IV 01/06/21 09:15 01/08/21 10:17 DC 01/08/21 01:33 Sodium Chloride 1,000 ml @ 100 mls/hr Q10H IV 01/02/21 01:35 01/02/21 07:02 DC 01/02/21 01:50 Sodium Chloride (Saline Lock Flush) 30 ml Q24H IV 01/03/21 07:00 01/07/21 06:59 DC 01/06/21 19:20 Torsemide (Demadex) 20 mg QAM PO 01/11/21 09:00 01/11/21 09:36 Tramadol HCl (Ultram) 50 mg Q8HP PRN PO PAIN LEVEL 6-10 01/05/21 18:40 01/06/21 09:24 DC 01/05/21 18:55 Vancomycin HCl 750 mg/IV Miscellaneous Supplies 1 each/ Sodium Chloride 275 ml @ 275 mls/hr Q24H IV 01/03/21 19:00 01/04/21 10:59 DC 01/03/21 21:43 Vancomycin HCl 1000 mg/IV Miscellaneous Supplies 1 each/ Sodium Chloride 270 ml @ 270 mls/hr Q12H IV 01/02/21 16:10 01/02/21 18:05 DC Zolpidem Tartrate (Ambien) 5 mg QPMP PRN PO sleep 01/02/21 05:05 01/02/21 15:54 DC Allergies Coded Allergies: Macrolide Antibiotics (Verified Allergy, Unknown, 12/23/19) Penicillins (Verified Allergy, Unknown, 12/23/19) Quinolones (Verified Allergy, Unknown, 02/01/20) codeine (Verified Allergy, Unknown, 12/23/19) erythromycin base (Verified Allergy, Unknown, 12/23/19) morphine (Verified Allergy, Unknown, 12/23/19) nitroglycerin (Verified Allergy, Unknown, PATCHES, 02/01/20) ranolazine (Verified Allergy, Unknown, 02/01/20) telithromycin (Verified Allergy, Unknown, 12/23/19) Assessment/Plan Date Seen The patient was seen on 01/11/21 in AM at [address] unit. Plan / VTE VTE Prophylaxis Ordered?: Yes Plan Orders past 48 Hours Orders Pt Eval & Tx As Needed (01/10/21 10:36) Ot Eval & Treat As Needed (01/10/21 10:36) Fingerstick Blood Sugar (01/10/21 11:59) Furosemide Injection (Lasix Injection) (01/10/21 12:10) Attending Doctor Change: (01/10/21 12:35) Piperacillin/Tazobactam Sod (Zosyn) (01/10/21 16:00) Fingerstick Blood Sugar (01/10/21 16:29) Torsemide (Demadex) (01/11/21 09:00) Fingerstick Blood Sugar (01/10/21 20:01) Lactobacillus Acidophilus (Bacid) (01/11/21 09:00) * Nursing Order * (01/11/21 04:55) Potassium Chloride (Micro-K Extencaps) (01/11/21 10:00) Potassium Chloride (Micro-K Extencaps) (01/12/21 09:00) Fingerstick Blood Sugar (01/11/21 12:24) Aspirin (Ecotrin) (01/11/21 15:30) Fingerstick Blood Sugar (01/11/21 17:01) Fingerstick Blood Sugar (01/11/21 19:52) Plan Text 1. Acute renal failure on CKD 3/CKD 4, baseline creatinine of 1.7.Solitary kidney: Renal function is improving. Cr 2-->1.8 now. OK to use diuretic now. 2. Retroperitoneal bleed and Rectus sheath hematoma: Hb is stable now. transfuse PRBC for Hb<8. 3. Acute hypoxic respiratory failure secondary to COVID-19 pneumonia-->Improving. Patient is on nasal canula. She is on Decadron. started torsemide 20 mg daily. 4. Diabetes mellitus type 2. Okay to continue insulin sliding scale and Levemir. 5. Chronic gout secondary to chronic kidney disease. Allopurinol. 6. LE Edema: improving post IV diuretic.Cont torsemide 20 mg daily for now. MIRIAN KRUEGER MD Jan 11, 2021 22:06
[2021-01-12] MEDS: METOPROLOL TART 25 MG TABLET PO SCH ×4 (01:00→17:32)
[2021-01-12] MEDS: PIPERACILLIN/TAZOBACTAM SOD 2.25 GM in D5W MINI-BAG PLUS 50 ML IV SCH ×4 (04:27→20:18)
[2021-01-12 05:16] LABS: HEMATOCRIT 29.4 % (36.0-47.0); HEMOGLOBIN 9.9 g/dl (12.0-15.5); MEAN CORPUSCULAR HEMOGLOBIN 31.6 pg (27.0-33.0); MEAN CORPUSCULAR HGB CONC 33.7 g/dl (32.0-36.5); MEAN CORPUSCULAR VOLUME 93.9 fl (80.0-96.0); PLATELET COUNT, AUTOMATED 200 10^3/uL (150-450); RED BLOOD COUNT 3.13 10^6/uL (4.00-5.40); WHITE BLOOD COUNT 20.2 10^3/uL (4.0-10.0)
[2021-01-12 05:33] LABS: CALCIUM LEVEL 8.6 MG/DL (8.8-10.2); CREATININE FOR GFR 1.72 MG/DL (0.55-1.30); GLOMERULAR FILTRATION RATE 31.3 (>45); MAGNESIUM LEVEL 2.1 MG/DL (1.8-2.4); POTASSIUM SERUM 3.5 MEQ/L (3.5-5.1)
[2021-01-12 06:00] VITALS: BP 148/74
[2021-01-12] MEDS: LEVOTHYROXINE 150MCG TABLET (0.15MG) PO SCH (06:17)
[2021-01-12] MEDS: HumaLOG INSULIN (NovoLOG) PER UNIT SC SCH ×4 (07:30→21:00)
[2021-01-12] MEDS: dexameTHASONE 20MG/5ML VIAL (J1100 PER 1MG) IV SCH (09:41)
[2021-01-12] MEDS: PANTOPRAZOLE 40MG VIAL (C9113 PER 1) IV SCH ×2 (09:42→20:18)
[2021-01-12] MEDS: LEVEMIR (INSULIN DETEMIR) 1 UNITS/0.01ML SC SCH (09:43)
[2021-01-12] MEDS: allopurinoL 100 MG TAB PO SCH (09:43)
[2021-01-12] MEDS: LACTOBACILLUS ACIDOPHILUS CAP (BACID) PO SCH (09:43)
[2021-01-12] MEDS: ASPIRIN 81MG ENTERIC TABLET PO SCH (09:44)
[2021-01-12] MEDS: POTASSIUM CHLORIDE 10MEQ SR TABLET PO SCH (09:44)
[2021-01-12] MEDS: TORSEMIDE 20 MG TAB PO SCH (09:45)
--- NOTE | 2021-01-12 12:29 | IPNPDOC ---
Subjective CC/HPI The patient is a 70-year-old female admitted with a reason for visit of Pneumonia Due To Covid-19 Virus. Events since last encounter Pt was seen in COVID Isolation unit. She was doing PT and walking with a walker.Renal function improved back to baseline.Cr 1.8-->1.7 now. SOB improving. General: Reports: Fatigue; Denies: Chills, Night Sweats Constitutional: Reports: Malaise; Denies: Chills, Fever Eyes: Denies: Pain, Vision change ENT: Denies: Head Aches, Ear Pain Skin: Denies: Rash, Lesions Pulmonary: Reports: Dyspnea; Denies: Cough Cardiovascular: Denies: Chest Pain, Palpitations Gastrointestinal: Denies: Nausea, Vomiting Genitourinary: Denies: Dysuria, Frequency Hematologic: Denies: Bruising, Bleeding Excessively Musculoskeletal: Denies: Neck Pain Neurological: Reports: Weakness; Denies: Numbness Psych: Reports: Mood Normal Objective Physical Examination General Exam: Cooperative, No Acute Distress EYE EXAM: PERRLA, Conjunctiva & lids normal, EOMI ENT EXAM: Atraumatic, Mucous membr. moist/pink Neck Exam: Supple Chest Exam: Rales, Other Heart Exam: Rate Normal ABDOMEN EXAM: Normal bowel sounds, Soft Extremity Exam: No: Clubbing, Cyanosis, Edema Skin Exam: Nl turgor and temperature, Lesion Neuro Exam: Normal Speech, Strength at 5/5 X4 ext Psych Exam: Mental status NL, Mood NL, Oriented x 3 Vital Signs/I&O Vital Signs Date Time Temp Pulse Resp B/P (MAP) Pulse Ox O2 Delivery O2 Flow Rate FiO2 01/12/21 06:18 76 166/79 01/12/21 06:00 96.9 16 96 High Flow Cannula 1.0 01/08/21 06:00 32 I&O- Last 24 Hours up to 6 AM 01/12/21 06:00 Intake Total 170 ml Balance 170 ml Laboratory Data Labs 24H Laboratory Tests 2 01/11/21 17:01: Bedside Glucose (Misc Panel) 176H 01/11/21 19:52: Bedside Glucose (Misc Panel) 177H 01/12/21 05:01: Nucleated Red Blood Cells % (auto) 0.1H, Anion Gap 6L, Glomerular Filtration Rate 31.3L, Calcium Level 8.6L, Magnesium Level 2.1 01/12/21 08:59: Bedside Glucose (Misc Panel) 118H CBC/BMP Laboratory Tests 01/12/21 05:01 FSBS Laboratory Tests Test 01/11/21 17:01 01/11/21 19:52 01/12/21 08:59 Range/Units Bedside Glucose (Misc Panel) 176 177 118 80-115 MG/DL Current Medications Current Medications Medications (Trade) Dose Ordered Sig/Berna Route PRN Reason Start Time Stop Time Status Last Admin Dose Admin Acetaminophen (Tylenol Tab) 650 mg Q4HP PRN PO mild pain/fever 01/02/21 03:45 01/10/21 22:16 Albuterol Sulfate (Proventil Neb) 2.5 mg RQ6H NEB 01/04/21 14:00 01/07/21 13:40 DC 01/06/21 20:37 Albuterol Sulfate (Proventil, Ventolin Hfa) 2 puff Q6HP PRN INH SHORTNESS OF BREATH 01/07/21 13:40 Albuterol/ Ipratropium (Duoneb (Ipr 0.5mg/Alb 2.5mg)) 3 ml Q4HP PRN NEB sob 01/02/21 03:45 01/07/21 13:40 DC 01/07/21 01:14 Allopurinol (Zyloprim) 100 mg DAILY PO 01/02/21 09:00 01/12/21 09:43 Amiodarone HCl 150 mg/IV Miscellaneous Supplies 100 ml @ 600 mls/hr NOW IV 01/07/21 05:10 01/07/21 05:19 DC 01/07/21 05:37 Amitriptyline HCl (Elavil) 25 mg DAILY PO 01/02/21 09:00 01/06/21 09:24 DC 01/05/21 08:58 Aspirin (Ecotrin) 81 mg DAILY PO 01/11/21 15:30 01/12/21 09:44 Aspirin (Ecotrin) 81 mg DAILY PO 01/02/21 09:00 01/06/21 10:15 DC 01/06/21 09:44 Atorvastatin Calcium (Lipitor) 10 mg DAILY PO 01/02/21 09:00 01/06/21 07:25 DC 01/05/21 08:58 Ceftriaxone Sodium 1 gm/ Dextrose 50 ml @ 100 mls/hr Q24H IV 01/02/21 17:00 01/06/21 07:35 DC 01/05/21 16:57 Clopidogrel Bisulfate (PLAVix) 75 mg DAILY PO 01/02/21 09:00 01/06/21 09:24 DC 01/05/21 08:57 Dexamethasone (Decadron) 6 mg DAILY IV 01/02/21 09:00 01/03/21 15:10 DC 01/03/21 09:38 Dexamethasone (Decadron) 10 mg BID IV 01/03/21 21:00 01/06/21 10:15 DC 01/06/21 09:45 Dexamethasone (Decadron) 10 mg DAILY IV 01/07/21 09:00 01/12/21 09:41 Dextrose (Dextrose 50%) 25 ml ASDIRECTED PRN IV SEE LABEL COMMENTS 01/02/21 03:45 Enalapril Maleate (Vasotec) 5 mg BID PO 01/02/21 09:00 01/02/21 07:02 DC Enoxaparin Sodium (Lovenox) 40 mg BID SC 01/03/21 21:00 01/06/21 09:24 DC 01/05/21 22:51 Enoxaparin Sodium (Lovenox) 40 mg Q24H SC 01/02/21 09:00 01/02/21 16:07 DC 01/02/21 08:27 Enoxaparin Sodium (Lovenox) 40 mg Q24H SC 01/03/21 09:00 01/03/21 19:48 DC 01/03/21 09:45 EZETIMIBE (Zetia) 10 mg DAILY PO 01/02/21 09:00 01/06/21 07:25 DC 01/05/21 08:58 Ferrous Sulfate (Ferrous Sulfate) 325 mg DAILY PO 01/02/21 09:00 01/06/21 07:25 DC 01/05/21 08:57 Furosemide (Lasix) 80 mg BID@0900,1700 PO 01/02/21 09:00 01/02/21 07:02 DC Gabapentin (Neurontin) 300 mg TID PO 01/02/21 09:00 01/02/21 05:16 DC Glucagon (Glucagon) 1 mg ASDIRECTED PRN SC SEE LABEL COMMENTS 01/02/21 03:45 Glucose (Glucose) 16 GM ASDIRECTED PRN PO SEE LABEL COMMENTS 01/02/21 03:45 Haloperidol (Haldol) 5 mg STAT STAT IM 01/06/21 13:13 01/06/21 13:18 DC 01/06/21 13:30 Home Med (Home Med List Complete!) ASDIRECTED XX 01/02/21 03:55 01/02/21 03:54 DC Insulin Detemir (Levemir Insulin) 20 units DAILY SC 01/02/21 09:00 01/12/21 09:43 Insulin Human Lispro (HumaLOG INSULIN) SEE PROTOCOL TABLE AC SC 01/02/21 07:30 01/11/21 17:45 Insulin Human Lispro (HumaLOG INSULIN) SEE PROTOCOL TABLE QHS SC 01/02/21 21:00 01/09/21 21:41 Isosorbide Mononitrate (Imdur) 30 mg DAILY PO 01/02/21 09:00 01/06/21 09:24 DC 01/05/21 08:57 Lactobacillus Acidophilus (Bacid) 1 ea DAILY PO 01/11/21 09:00 01/12/21 09:43 Levothyroxine Sodium (Synthroid) 150 mcg DAILY PO 01/02/21 09:00 01/04/21 09:13 DC 01/03/21 09:38 Levothyroxine Sodium (Synthroid) 150 mcg DAILY@0600 PO 01/04/21 06:00 01/12/21 06:17 Metoprolol Tartrate (Lopressor) 5 mg STAT STAT IV 01/07/21 15:59 01/07/21 16:00 DC 01/07/21 16:13 Metoprolol Tartrate (Lopressor) 25 mg BID PO 01/02/21 21:00 01/05/21 11:02 DC 01/05/21 09:09 Metoprolol Tartrate (Lopressor) 25 mg Q6H PO 01/08/21 18:00 01/12/21 06:18 Metoprolol Tartrate (Lopressor) 50 mg BID PO 01/02/21 09:00 01/02/21 16:02 DC 01/02/21 08:29 Metoprolol Tartrate (Lopressor) 50 mg BID PO 01/05/21 21:00 01/06/21 07:25 DC 01/05/21 22:49 Morphine Sulfate (Morphine Sulfate Inj) 2 mg Q4H PRN IV PAIN LEVEL 6-10 01/06/21 09:15 01/08/21 12:10 DC 01/06/21 19:20 Ondansetron HCl (ZOFRAN INJection) 4 mg Q6HP PRN IV NAUSEA OR VOMITING 01/05/21 08:25 01/06/21 03:24 Pantoprazole Sodium (Protonix) 40 mg BID IV 01/06/21 09:00 01/12/21 09:42 Pantoprazole Sodium (Protonix) 40 mg BID PO 01/03/21 21:00 01/06/21 09:24 DC 01/05/21 22:50 Pantoprazole Sodium (Protonix) 40 mg DAILY PO 01/02/21 09:00 01/03/21 15:10 DC 01/03/21 09:39 Piperacillin Sod/ Tazobactam Sod 2.25 gm/Dextrose 50 ml @ 50 mls/hr Q6H IV 01/10/21 16:00 01/12/21 09:42 Piperacillin Sod/ Tazobactam Sod 2.25 gm/Dextrose 50 ml @ 50 mls/hr Q8H IV 01/06/21 10:00 01/10/21 14:53 DC 01/10/21 10:51 Potassium Chloride (Micro-K Extencaps) 20 meq DAILY PO 01/12/21 09:00 01/12/21 09:44 Protamine Sulfate (Protamine Sulfate) 20 mg STAT STAT IV 01/06/21 11:06 01/06/21 11:11 DC 01/06/21 14:06 Ramelteon (Rozerem) 8 mg QHS PRN PO INSOMNIA 01/09/21 21:45 01/10/21 22:16 Remdesivir 100 mg/ Sodium Chloride 270 ml @ 270 mls/hr Q24H IV 01/03/21 06:00 01/07/21 05:59 DC 01/06/21 18:20 Sodium Chloride 1,000 ml @ 70 mls/hr [id number] IV 01/06/21 09:15 01/08/21 10:17 DC 01/08/21 01:33 Sodium Chloride 1,000 ml @ 100 mls/hr Q10H IV 01/02/21 01:35 01/02/21 07:02 DC 01/02/21 01:50 Sodium Chloride (Saline Lock Flush) 30 ml Q24H IV 01/03/21 07:00 01/07/21 06:59 DC 01/06/21 19:20 Torsemide (Demadex) 20 mg QAM PO 01/11/21 09:00 01/12/21 09:45 Tramadol HCl (Ultram) 50 mg Q8HP PRN PO PAIN LEVEL 6-10 01/05/21 18:40 01/06/21 09:24 DC 01/05/21 18:55 Vancomycin HCl 750 mg/IV Miscellaneous Supplies 1 each/ Sodium Chloride 275 ml @ 275 mls/hr Q24H IV 01/03/21 19:00 01/04/21 10:59 DC 01/03/21 21:43 Vancomycin HCl 1000 mg/IV Miscellaneous Supplies 1 each/ Sodium Chloride 270 ml @ 270 mls/hr Q12H IV 01/02/21 16:10 01/02/21 18:05 DC Zolpidem Tartrate (Ambien) 5 mg QPMP PRN PO sleep 01/02/21 05:05 01/02/21 15:54 DC Allergies Coded Allergies: Macrolide Antibiotics (Verified Allergy, Unknown, 12/23/19) Penicillins (Verified Allergy, Unknown, 12/23/19) Quinolones (Verified Allergy, Unknown, 02/01/20) codeine (Verified Allergy, Unknown, 12/23/19) erythromycin base (Verified Allergy, Unknown, 12/23/19) morphine (Verified Allergy, Unknown, 12/23/19) nitroglycerin (Verified Allergy, Unknown, PATCHES, 02/01/20) ranolazine (Verified Allergy, Unknown, 02/01/20) telithromycin (Verified Allergy, Unknown, 12/23/19) Assessment/Plan Date Seen The patient was seen on 01/12/21 at 12:26. Plan / VTE VTE Prophylaxis Ordered?: Yes Plan Orders past 48 Hours Orders Attending Doctor Change: (01/10/21 12:35) Piperacillin/Tazobactam Sod (Zosyn) (01/10/21 16:00) Fingerstick Blood Sugar (01/10/21 16:29) Torsemide (Demadex) (01/11/21 09:00) Fingerstick Blood Sugar (01/10/21 20:01) Lactobacillus Acidophilus (Bacid) (01/11/21 09:00) * Nursing Order * (01/11/21 04:55) Potassium Chloride (Micro-K Extencaps) (01/11/21 10:00) Potassium Chloride (Micro-K Extencaps) (01/12/21 09:00) Fingerstick Blood Sugar (01/11/21 12:24) Aspirin (Ecotrin) (01/11/21 15:30) Fingerstick Blood Sugar (01/11/21 17:01) Fingerstick Blood Sugar (01/11/21 19:52) Fingerstick Blood Sugar (01/12/21 08:59) Transfer To [facility] Status (01/12/21 11:45) Plan Text 1. Acute renal failure on CKD 3/CKD 4, baseline creatinine of 1.7.Solitary kidney: Renal function improved back to baseline.OK to use diuretic now. 2. Retroperitoneal bleed and Rectus sheath hematoma: Improved. Hb stable 3. Acute hypoxic respiratory failure secondary to COVID-19 pneumonia-->Improving. Patient is on nasal canula. cont torsemide 20 mg daily. 4. Diabetes mellitus type 2. Okay to continue insulin sliding scale and Levemir. 5. Chronic gout secondary to chronic kidney disease. Allopurinol. 6. LE Edema: Cont torsemide 20 mg daily for now. Disposition: Nephrology signing off. Please call our service PRN. MIRIAN KRUEGER MD Jan 12, 2021 12:29
[2021-01-12] MEDS ORDERED: D5W 50ML As Ordered ONE (14:22)
[2021-01-12 16:00] VITALS: BP 123/67
--- NOTE | 2021-01-12 16:05 | IPNPDOC ---
Text Note Date of Service The patient was seen on 01/12/21. NOTE Subjective: Patient is a 70-year-old female was hospitalized due to COVID-19. Patient was found to have a retroperitoneal intra-abdominal hematoma in the setting of a coagulopathy. Patient is doing better today. She has been working physical therapy and is improving. Patient is only able to tolerate being on 1 L of oxygen was switched to room air she desaturates quite quickly. Patient denies any pain and states that she is otherwise feeling well today. Review of systems: General: Patient denies fevers HEENT: Patient denies headaches Cardiovascular: Patient denies chest pain Respiratory: Patient denies shortness of breath, cough GI: Patient denies abdominal pain, nausea, vomiting, diarrhea : Patient denies increased frequency or pain with urination Extremities: Patient denies swelling or pain in extremities Neurological: Patient denies numbness or tingling in legs Physical exam: Vitals: See below General: Alert and oriented female patient who was sitting up in the bedside chair and walked in. Patient had nasal cannula oxygen in place. Patient did n ot appear to be in any acute distress. HEENT: Normocephalic, atraumatic, moist mucous membranes. Neck: No lymphadenopathy or thyromegaly Cardiac: Regular rate and rhythm, no murmurs, normal S1, normal S2 Pulm: Diminished breath sounds bilaterally Abd: Nondistended, nontender to palpation, normal bowel sounds Ext: No edema bilateral lower extremities Labs: See below Imaging: No new imaging has been performed. Assessment/plan: 70-year-old female from a care home facility who presented with cough and shortness of breath and was diagnosed with COVID-19 on 12/28/2020 [facility] where she was admitted for generalized body shaking for stroke rule out. Patient is slowly improving. 1. Acute hypoxic respiratory failure secondary to COVID-19. This is improving and the patient can only tolerate being on 1 L of oxygen. Patient will most likely require being on chronic oxygen for some time. Patient will most likely need to be going home on oxygen as well. 2. COVID-19. Has finished remdesivir and dexamethasone. 3. Atrial relation with RVR. This is resolved. Heart rate normal limits. Anticoagulation on hold due to retroperitoneal intra-abdominal hematomas. 4. Retroperitoneal and rectus sheath hematoma. Lovenox and Plavix on hold. Aspirin was restarted. We will continue to monitor. 5. Acute blood loss anemia. Due to above. Status post transfusion. Hemog lobin stable at this time. 6. Hypovolemic shock, resolved. Due to acute blood loss. Patient is now hemodynamically stable. 7. ROSA on CKD stage IV with single kidney. Patient creatinine is back around baseline. Nephrology is following patient I appreciate their help treating the patient. Continue diuretics at current dose. 8. Acute metabolic encephalopathy due to medications. Medication discontinued and patient appears to be improving. 9. Type 2 diabetes mellitus Continue Levemir and lispro. 10. Coronary artery disease status post stenting. Aspirin was restarted yesterday. 11. Heart failure reduced ejection fraction. EF 35 to 40%. Not in acute exacerbation. 12. Hypertension. Metoprolol and Imdur on hold. Continue to monitor blood pressure. 13. Hyperlipidemia. Continue atorvastatin. 14. Hypothyroidism. Continue Synthroid. 15. GERD. Continue Protonix. 16. Gout. Continue allopurinol. 17. Leukocytosis. Currently on Zosyn due to elevated leukocytosis and procalcitonin. Of the cytosis may be reactionary to the patient's hematomas. This is slowly improving. DVT Prophylaxis: Teds and sequentials Disposition: Pending either clearing physical therapy to go home or placement. Patient was made ALC today. VS,Mata, I+O VS, Mata, I+O Laboratory Tests 01/12/21 05:01 Vital Signs Date Time Temp Pulse Resp B/P (MAP) Pulse Ox O2 Delivery O2 Flow Rate FiO2 01/12/21 10:00 1.0 01/12/21 06:18 76 166/79 01/12/21 06:00 96.9 16 96 High Flow Cannula 01/08/21 06:00 32 I&O- Last 24 Hours up to 6 AM 01/12/21 06:00 Intake Total 170 ml Balance 170 ml PAOLA MARISCAL DO Jan 12, 2021 16:05
[2021-01-12 21:00] VITALS: BP 123/51
[2021-01-12 22:03] VITALS: O2SAT 97
[2021-01-13 03:53] VITALS: BP 142/65
[2021-01-13] MEDS: PIPERACILLIN/TAZOBACTAM SOD 2.25 GM in D5W MINI-BAG PLUS 50 ML IV SCH ×4 (04:51→22:36)
[2021-01-13] MEDS: LEVOTHYROXINE 150MCG TABLET (0.15MG) PO SCH (05:50)
[2021-01-13] MEDS: METOPROLOL TART 25 MG TABLET PO SCH ×4 (05:52→17:16)
[2021-01-13 06:35] LABS: HEMATOCRIT 31.7 % (36.0-47.0); HEMOGLOBIN 10.4 g/dl (12.0-15.5); MEAN CORPUSCULAR HEMOGLOBIN 31.7 pg (27.0-33.0); MEAN CORPUSCULAR HGB CONC 32.8 g/dl (32.0-36.5); MEAN CORPUSCULAR VOLUME 96.6 fl (80.0-96.0); PLATELET COUNT, AUTOMATED 201 10^3/uL (150-450); RED BLOOD COUNT 3.28 10^6/uL (4.00-5.40); WHITE BLOOD COUNT 17.2 10^3/uL (4.0-10.0)
[2021-01-13 06:50] LABS: CALCIUM LEVEL 8.5 MG/DL (8.8-10.2); CREATININE FOR GFR 1.76 MG/DL (0.55-1.30); GLOMERULAR FILTRATION RATE 30.5 (>45); MAGNESIUM LEVEL 2.2 MG/DL (1.8-2.4); POTASSIUM SERUM 3.2 MEQ/L (3.5-5.1)
[2021-01-13] MEDS ORDERED: POTASSIUM CHLORIDE 10MEQ SR TABLET PO ONE (07:30)
[2021-01-13 08:46] VITALS: O2SAT 94
[2021-01-13] MEDS: PANTOPRAZOLE 40MG VIAL (C9113 PER 1) IV SCH ×2 (08:46→21:16)
[2021-01-13] MEDS: HumaLOG INSULIN (NovoLOG) PER UNIT SC SCH ×4 (08:46→21:00)
[2021-01-13] MEDS: LEVEMIR (INSULIN DETEMIR) 1 UNITS/0.01ML SC SCH (08:46)
[2021-01-13] MEDS: dexameTHASONE 20MG/5ML VIAL (J1100 PER 1MG) IV SCH (08:47)
[2021-01-13] MEDS: LACTOBACILLUS ACIDOPHILUS CAP (BACID) PO SCH (08:47)
[2021-01-13] MEDS: TORSEMIDE 20 MG TAB PO SCH (08:47)
[2021-01-13] MEDS: ASPIRIN 81MG ENTERIC TABLET PO SCH (08:47)
[2021-01-13] MEDS: allopurinoL 100 MG TAB PO SCH (08:47)
[2021-01-13] MEDS: POTASSIUM CHLORIDE 10MEQ SR TABLET PO SCH (08:51)
[2021-01-13 08:54] VITALS: BP 139/65
[2021-01-13 15:37] VITALS: O2SAT 99
[2021-01-13 17:00] VITALS: BP 115/69
[2021-01-13 19:39] VITALS: BP 120/58
[2021-01-14] MEDS: METOPROLOL TART 25 MG TABLET PO SCH ×5 (00:20→23:29)
[2021-01-14] MEDS: PIPERACILLIN/TAZOBACTAM SOD 2.25 GM in D5W MINI-BAG PLUS 50 ML IV SCH ×4 (04:14→21:04)
[2021-01-14 05:45] LABS: HEMATOCRIT 33.2 % (36.0-47.0); HEMOGLOBIN 10.5 g/dl (12.0-15.5); MEAN CORPUSCULAR HGB CONC 31.6 g/dl (32.0-36.5); MEAN CORPUSCULAR VOLUME 97.9 fl (80.0-96.0); PLATELET COUNT, AUTOMATED 192 10^3/uL (150-450); RED BLOOD COUNT 3.39 10^6/uL (4.00-5.40); WHITE BLOOD COUNT 14.5 10^3/uL (4.0-10.0)
[2021-01-14 05:56] VITALS: BP 147/70
[2021-01-14] MEDS: LEVOTHYROXINE 150MCG TABLET (0.15MG) PO SCH (05:58)
[2021-01-14 06:11] LABS: CALCIUM LEVEL 8.7 MG/DL (8.8-10.2); CREATININE FOR GFR 1.82 MG/DL (0.55-1.30); GLOMERULAR FILTRATION RATE 29.3 (>45); MAGNESIUM LEVEL 2.2 MG/DL (1.8-2.4); POTASSIUM SERUM 3.5 MEQ/L (3.5-5.1)
[2021-01-14 07:29] VITALS: BP 159/73
[2021-01-14] MEDS: HumaLOG INSULIN (NovoLOG) PER UNIT SC SCH ×4 (07:30→21:05)
[2021-01-14] MEDS: PANTOPRAZOLE 40MG VIAL (C9113 PER 1) IV SCH ×2 (09:27→21:04)
[2021-01-14] MEDS: dexameTHASONE 20MG/5ML VIAL (J1100 PER 1MG) IV SCH (09:27)
[2021-01-14] MEDS: LEVEMIR (INSULIN DETEMIR) 1 UNITS/0.01ML SC SCH (09:28)
[2021-01-14] MEDS: LACTOBACILLUS ACIDOPHILUS CAP (BACID) PO SCH (09:29)
[2021-01-14] MEDS: TORSEMIDE 20 MG TAB PO SCH (09:29)
[2021-01-14] MEDS: POTASSIUM CHLORIDE 10MEQ SR TABLET PO SCH (09:29)
[2021-01-14] MEDS: ASPIRIN 81MG ENTERIC TABLET PO SCH (09:29)
[2021-01-14] MEDS: allopurinoL 100 MG TAB PO SCH (09:29)
[2021-01-14 09:30] VITALS: O2SAT 98
[2021-01-14 15:05] VITALS: BP 146/61
[2021-01-15] MEDS: METOPROLOL TART 25 MG TABLET PO SCH ×4 (05:25→23:49)
[2021-01-15] MEDS: LEVOTHYROXINE 150MCG TABLET (0.15MG) PO SCH (05:25)
[2021-01-15] MEDS: PIPERACILLIN/TAZOBACTAM SOD 2.25 GM in D5W MINI-BAG PLUS 50 ML IV SCH ×2 (05:25→09:01)
[2021-01-15 05:30] VITALS: BP 152/73
[2021-01-15 06:13] LABS: HEMATOCRIT 34.6 % (36.0-47.0); HEMOGLOBIN 11.3 g/dl (12.0-15.5); MEAN CORPUSCULAR HEMOGLOBIN 31.6 pg (27.0-33.0); MEAN CORPUSCULAR HGB CONC 32.7 g/dl (32.0-36.5); MEAN CORPUSCULAR VOLUME 96.6 fl (80.0-96.0); PLATELET COUNT, AUTOMATED 185 10^3/uL (150-450); RED BLOOD COUNT 3.58 10^6/uL (4.00-5.40); WHITE BLOOD COUNT 13.9 10^3/uL (4.0-10.0)
[2021-01-15 06:41] LABS: CALCIUM LEVEL 8.7 MG/DL (8.8-10.2); CREATININE FOR GFR 1.9 MG/DL (0.55-1.30); GLOMERULAR FILTRATION RATE 27.9 (>45); MAGNESIUM LEVEL 2.4 MG/DL (1.8-2.4); POTASSIUM SERUM 3.4 MEQ/L (3.5-5.1)
[2021-01-15] MEDS: HumaLOG INSULIN (NovoLOG) PER UNIT SC SCH ×4 (07:30→20:12)
[2021-01-15] MEDS: LEVEMIR (INSULIN DETEMIR) 1 UNITS/0.01ML SC SCH (09:02)
[2021-01-15] MEDS: TORSEMIDE 20 MG TAB PO SCH (09:03)
[2021-01-15] MEDS: allopurinoL 100 MG TAB PO SCH (09:03)
[2021-01-15] MEDS: ASPIRIN 81MG ENTERIC TABLET PO SCH (09:03)
[2021-01-15] MEDS: dexameTHASONE 20MG/5ML VIAL (J1100 PER 1MG) IV SCH (09:03)
[2021-01-15] MEDS: LACTOBACILLUS ACIDOPHILUS CAP (BACID) PO SCH (09:04)
[2021-01-15] MEDS: PANTOPRAZOLE 40MG VIAL (C9113 PER 1) IV SCH (09:04)
[2021-01-15] MEDS: POTASSIUM CHLORIDE 10MEQ SR TABLET PO SCH (09:04)
--- NOTE | 2021-01-15 12:03 | CR.PDOC ---
General Surgery Consultation Date of Consultation 01/07/21 History and Physical CONSULT REPORT FOR: Angelia Bhatia MD (hospitalist service) REASON FOR CONSULTATION: retroperitoneal hematoma, rectus sheath hematoma HISTORY OF PRESENT ILLNESS: I was asked to help evaluate the patient and suggest further management by Dr. Bhatia. She is currently admitted for Covid pneumonia/ARDS. As part of the treatment protocol she was placed on a therapeutic Lovenox. It looks like from the evening of to Friday she had a sudden drop on her hemoglobin and hematocrit and was complaining of abdominal pain nausea and vomiting. This prompted a CT scan of the abdomen and pelvis done which shows right rectus sheath hematoma as well as retroperitoneal hematoma extending to the pelvis. She was also noted to be having some black stools possibly melanotic. She is receiving 2 units of packed RBCs. She has been hemodynamically stable despite of this. The critical care service has already been involved and at the time that I saw the patient, Dr. Eller is placing a central line on her after she was transferred to the ICU from the medical floor. She is currently not intubated and on Vapotherm. PAST MEDICAL HISTORY: hypertension, gout cervical cancer diabetes DVT status post IVC filter hyperlipidemia hypothyroidism chronic kidney disease stage IV solitary kidney PAST SURGICAL HISTORY: INCLUDES: 1. Right nephrectomy. 2. Cholecystectomy 3. Hysterectomy 4. Left knee replacement ALLERGIES: Please see below. HOME MEDICATIONS: Please see below. REVIEW OF SYSTEMS: not able to obtain at the time that I saw the patient PHYSICAL EXAMINATION: VITALS SIGNS: Please see below. When I visited the patient in the ICU, and Dr. Eller was placing a central vascular access on her. She is on Vapotherm. She appears awake. She appears confused. Denies any pain. I do not see any superficial skin or soft tissue ecchymosis. She is most tender over the right lower abdomen. Abdomen does not look overly distended. ANCILLARIES: LABORATORY DATA: Please see below. IMAGING STUDIES: I reviewed her CT abdomen and pelvis that was done 01/06/2021 IMPRESSION AND PLAN: Coagulopathy secondary to Lovenox treatment resulting in rectus sheath hematoma, retroperitoneal hematoma and possibility of gastrointestinal tract bleed/melena. Her blood pressures have been soft and she is lacking adequate peripheral access.. There was no reliable peripheral access and a central venous access is being placed. She is currently getting blood transfusion. I suggested to Dr. Bhatia to also transfuse FFP. Both for volume as well as to correct the co agulopathy from the Lovenox. I discussed the case with Dr. Eller. Most of the time the retroperitoneal as well as the rectus sheath hematoma will not need any surgical intervention and close monitoring may be the only thing that is needed. Most of the time this tamponade by itself. She may have evidence of also gastrointestinal bleed in the setting of coagulopathy and she has been started on IV Protonix and sucralfate is also been added. I will continue to follow along just in case she may need endoscopy if the bleeding does not stop after correction of the coagulopathy. At this point most of this will be medical management unless there is persistent or uncontrolled gastrointestinal bleed. I discussed my impression and suggestions with Dr. Bhatia as well as with Dr. Eller. Vital Signs Vital Signs Date Time Temp Pulse Resp B/P (MAP) Pulse Ox O2 Delivery O2 Flow Rate FiO2 01/15/21 05:30 96.0 51 18 152/73 (99) 95 Room Air 01/14/21 20:00 1.0 I&Os I&O- Last 24 Hours up to 6 AM 01/15/21 06:00 Intake Total 480 ml Balance 480 ml Laboratory Data Labs 24H Laboratory Tests 2 01/14/21 11:47: Bedside Glucose (Misc Panel) 183H 01/14/21 17:01: Bedside Glucose (Misc Panel) 359H 01/14/21 19:36: Bedside Glucose (Misc Panel) 326H 01/15/21 05:43: Nucleated Red Blood Cells % (auto) 0.0, Anion Gap 5L, Glomerular Filtration Rate 27.9L, Calcium Level 8.7L, Magnesium Level 2.4 CBC/BMP Laboratory Tests 01/15/21 05:43 Microbiology Microbiology 01/06/21 Stool Occult Blood (LASHAWN) - Final, Complete 01/06/21 Blood Culture - Final, Complete NO GROWTH AFTER 5 DAYS Home Medications Scheduled Allopurinol (Allopurinol) 100 Mg Tablet, 100 MG PO DAILY, (Reported) Amitriptyline HCl (Amitriptyline HCl) 25 Mg Tablet, 25 MG PO DAILY, (Reported) Atorvastatin Calcium (Atorvastatin Calcium) 10 Mg Tablet, 10 MG PO DAILY, (Reported) Cholecalciferol (Vitamin D3) (Vitamin D3) 1,000 Unit Tablet, 1,000 UNITS PO DAILY, (Reported) Clopidogrel Bisulfate (Clopidogrel) 75 Mg Tablet, 75 MG PO DAILY, (Reported) Colestipol HCl (Colestipol HCl) 1 Gm Tablet, 1 GM PO BID, (Reported) Enalapril Maleate (Enalapril Maleate) 5 Mg Tablet, 5 MG PO BID, (Reported) Ezetimibe (Ezetimibe) 10 Mg Tablet, 10 MG PO DAILY, (Reported) Ferrous Sulfate (Iron) 325 Mg Tablet, 65 MG PO DAILY, (Reported) Furosemide (Furosemide) 80 Mg Tablet, 80 MG PO BID, (Reported) Gabapentin (Gabapentin) 300 Mg Capsule, 300 MG PO TID, (Reported) Insulin Glargine,Hum.rec.anlog (Basaglar Kwikpen U-100) 100 Unit/1 Ml Insuln.pen, 20 UNIT SC DAILY, (Reported) Isosorbide Mononitrate (Isosorbide Mononitrate ER) 30 Mg Tab.er.24h, 30 MG PO DAILY, (Reported) Levothyroxine Sodium (Levothyroxine Sodium) 150 Mcg Tablet, 150 MCG PO DAILY, (Reported) Melatonin (Melatonin) 5 Mg Capsule, 5 MG PO QHS, (Reported) Metoprolol Tartrate (Metoprolol Tartrate) 50 Mg Tablet, 50 MG PO BID, (Reported) Pantoprazole Sodium (Pantoprazole Sodium) 40 Mg Tablet.dr, 40 MG PO DAILY, (Reported) Scheduled PRN Zolpidem Tartrate (Zolpidem Tartrate) 5 Mg Tablet, 5 MG PO QPMP PRN for sleep, (Reported) Miscellaneous Medications [med rec comment] , (Reported) pt. unaware of med names or doses or last dosage taken,used external med history Allergies Coded Allergies: Macrolide Antibiotics (Verified Allergy, Unknown, 12/23/19) Penicillins (Verified Allergy, Unknown, 12/23/19) Quinolones (Verified Allergy, Unknown, 02/01/20) codeine (Verified Allergy, Unknown, 12/23/19) erythromycin base (Verified Allergy, Unknown, 12/23/19) morphine (Verified Allergy, Unknown, 12/23/19) nitroglycerin (Verified Allergy, Unknown, PATCHES, 02/01/20) ranolazine (Verified Allergy, Unknown, 02/01/20) telithromycin (Verified Allergy, Unknown, 12/23/19) DEMARCO FONTENOT MD Jan 15, 2021 12:03
[2021-01-15] MEDS ORDERED: SODIUM CHLORIDE 0.9% INJ 10 ML SYR IV PRN (17:55)
[2021-01-15] MEDS ORDERED: SODIUM CHLORIDE 0.9% INJ 10 ML SYR IV SCH (18:00)
[2021-01-15 23:23] VITALS: BP 138/80
[2021-01-16 05:00] VITALS: BP 158/78
[2021-01-16] MEDS: METOPROLOL TART 25 MG TABLET PO SCH ×4 (05:15→23:54)
[2021-01-16 05:41] LABS: HEMATOCRIT 34.3 % (36.0-47.0); HEMOGLOBIN 11.2 g/dl (12.0-15.5); MEAN CORPUSCULAR HEMOGLOBIN 31.5 pg (27.0-33.0); MEAN CORPUSCULAR HGB CONC 32.7 g/dl (32.0-36.5); MEAN CORPUSCULAR VOLUME 96.6 fl (80.0-96.0); PLATELET COUNT, AUTOMATED 165 10^3/uL (150-450); RED BLOOD COUNT 3.55 10^6/uL (4.00-5.40); WHITE BLOOD COUNT 12.9 10^3/uL (4.0-10.0)
[2021-01-16 05:45] VITALS: BP 158/78
[2021-01-16 06:03] LABS: CALCIUM LEVEL 8.6 MG/DL (8.8-10.2); CREATININE FOR GFR 2.17 MG/DL (0.55-1.30); GLOMERULAR FILTRATION RATE 23.9 (>45); MAGNESIUM LEVEL 2.4 MG/DL (1.8-2.4); POTASSIUM SERUM 3.7 MEQ/L (3.5-5.1)
[2021-01-16] MEDS: LEVOTHYROXINE 150MCG TABLET (0.15MG) PO SCH (06:38)
[2021-01-16] MEDS: HumaLOG INSULIN (NovoLOG) PER UNIT SC SCH ×4 (07:04→21:00)
[2021-01-16] MEDS ORDERED: SODIUM CHLORIDE 0.9% INJ 10 ML SYR IV PRN (07:15)
[2021-01-16] MEDS: SODIUM CHLORIDE 0.9% INJ 10 ML SYR IV SCH ×3 (07:33→22:17)
[2021-01-16] MEDS: PANTOPRAZOLE 40MG TAB (PROTONIX) PO SCH (08:33)
[2021-01-16] MEDS: LEVEMIR (INSULIN DETEMIR) 1 UNITS/0.01ML SC SCH (08:33)
[2021-01-16] MEDS: LACTOBACILLUS ACIDOPHILUS CAP (BACID) PO SCH (08:33)
[2021-01-16] MEDS: TORSEMIDE 20 MG TAB PO SCH (08:33)
[2021-01-16] MEDS: allopurinoL 100 MG TAB PO SCH (08:33)
[2021-01-16] MEDS: ASPIRIN 81MG ENTERIC TABLET PO SCH (08:33)
[2021-01-16] MEDS: predniSONE 20 MG TAB PO SCH (08:33)
[2021-01-16] MEDS: POTASSIUM CHLORIDE 10MEQ SR TABLET PO SCH (08:34)
[2021-01-16 19:45] VITALS: BP 164/79
[2021-01-17 05:37] VITALS: BP 139/65
[2021-01-17] MEDS: METOPROLOL TART 25 MG TABLET PO SCH ×4 (06:00→23:27)
[2021-01-17] MEDS: LEVOTHYROXINE 150MCG TABLET (0.15MG) PO SCH (06:31)
[2021-01-17] MEDS: SODIUM CHLORIDE 0.9% INJ 10 ML SYR IV SCH ×3 (06:35→20:53)
[2021-01-17] MEDS: HumaLOG INSULIN (NovoLOG) PER UNIT SC SCH ×4 (08:55→20:40)
[2021-01-17] MEDS: PANTOPRAZOLE 40MG TAB (PROTONIX) PO SCH (08:56)
[2021-01-17] MEDS: LEVEMIR (INSULIN DETEMIR) 1 UNITS/0.01ML SC SCH (08:56)
[2021-01-17] MEDS: LACTOBACILLUS ACIDOPHILUS CAP (BACID) PO SCH (08:56)
[2021-01-17] MEDS: ASPIRIN 81MG ENTERIC TABLET PO SCH (08:56)
[2021-01-17] MEDS: allopurinoL 100 MG TAB PO SCH (08:56)
[2021-01-17] MEDS: predniSONE 20 MG TAB PO SCH (08:57)
[2021-01-17] MEDS: POTASSIUM CHLORIDE 10MEQ SR TABLET PO SCH (08:57)
[2021-01-17 13:01] VITALS: BP 165/75
[2021-01-17 13:20] LABS: BASO % 0.1 % (0.0-1.0); HEMOGLOBIN 11.5 g/dl (12.0-15.5); LYMPH # 0.4 10^3/uL (1.5-5.0); MEAN CORPUSCULAR HEMOGLOBIN 32.3 pg (27.0-33.0); MEAN CORPUSCULAR HGB CONC 32.9 g/dl (32.0-36.5); MEAN CORPUSCULAR VOLUME 98.3 fl (80.0-96.0); MONO % 4.7 % (2.0-8.0); NEUTROPHILS # 18.8 10^3/uL (1.5-8.5); NEUTROPHILS % 91.8 % (36.0-66.0); PLATELET COUNT, AUTOMATED 150 10^3/uL (150-450); RED BLOOD COUNT 3.56 10^6/uL (4.00-5.40); WHITE BLOOD COUNT 20.4 10^3/uL (4.0-10.0)
[2021-01-17 13:53] LABS: CALCIUM LEVEL 9.2 MG/DL (8.8-10.2); CREATININE FOR GFR 2.06 MG/DL (0.55-1.30); GLOMERULAR FILTRATION RATE 25.4 (>45); MAGNESIUM LEVEL 2.4 MG/DL (1.8-2.4); POTASSIUM SERUM 3.6 MEQ/L (3.5-5.1)
[2021-01-17 14:33] LABS: BASO % 0.1 % (0.0-1.0); HEMATOCRIT 33.3 % (36.0-47.0); LYMPH # 0.4 10^3/uL (1.5-5.0); LYMPH % 2.1 % (24.0-44.0); MEAN CORPUSCULAR HEMOGLOBIN 32.3 pg (27.0-33.0); MEAN CORPUSCULAR VOLUME 97.7 fl (80.0-96.0); MONO # 0.5 10^3/uL (0.0-0.8); MONO % 2.7 % (2.0-8.0); NEUTROPHILS # 18.8 10^3/uL (1.5-8.5); PLATELET COUNT, AUTOMATED 160 10^3/uL (150-450); RED BLOOD COUNT 3.41 10^6/uL (4.00-5.40)
--- NOTE | 2021-01-17 14:52 | REP ---
INDICATION: Leukocytosis. COMPARISON: 01/01/2021. TECHNIQUE: Single portable AP view of the chest was performed. FINDINGS: Peripheral infiltrates throughout the left lung appear improved with mild residual. Mild interstitial infiltrates/fibrosis are seen throughout the right lung unchanged. The heart and mediastinum are unremarkable and unchanged. There is mild elevation of left hemidiaphragm. IMPRESSION: Diffuse left lung infiltrate improved since the prior study. Mild interstitial infiltrate right lung unchanged. <Electronically signed by Everardo Marin > 01/17/21 0802
[2021-01-17] MEDS: amLODIPine 5 MG TAB PO SCH (20:36)
[2021-01-17 22:00] VITALS: BP 163/71
[2021-01-17] MEDS: RAMELTEON 8 MG TAB (ROZEREM) PO PRN (23:27)
[2021-01-18] MEDS: SODIUM CHLORIDE 0.9% INJ 10 ML SYR IV SCH ×3 (05:09→20:34)
[2021-01-18] MEDS: METOPROLOL TART 25 MG TABLET PO SCH ×3 (05:49→18:08)
[2021-01-18] MEDS: LEVOTHYROXINE 150MCG TABLET (0.15MG) PO SCH (05:50)
[2021-01-18 06:00] VITALS: BP 157/73
[2021-01-18 07:07] LABS: BASO % 0.1 % (0.0-1.0); EOS % 0.1 % (0.0-3.0); HEMATOCRIT 32.6 % (36.0-47.0); HEMOGLOBIN 10.4 g/dl (12.0-15.5); LYMPH # 0.8 10^3/uL (1.5-5.0); LYMPH % 5.7 % (24.0-44.0); MEAN CORPUSCULAR HEMOGLOBIN 31.7 pg (27.0-33.0); MEAN CORPUSCULAR HGB CONC 31.9 g/dl (32.0-36.5); MEAN CORPUSCULAR VOLUME 99.4 fl (80.0-96.0); MONO # 0.8 10^3/uL (0.0-0.8); MONO % 5.5 % (2.0-8.0); NEUTROPHILS # 12.1 10^3/uL (1.5-8.5); NEUTROPHILS % 87.7 % (36.0-66.0); PLATELET COUNT, AUTOMATED 131 10^3/uL (150-450); RED BLOOD COUNT 3.28 10^6/uL (4.00-5.40); WHITE BLOOD COUNT 13.8 10^3/uL (4.0-10.0)
[2021-01-18] MEDS: HumaLOG INSULIN (NovoLOG) PER UNIT SC SCH ×4 (07:30→20:38)
[2021-01-18 07:31] LABS: C REACTIVE PROTEIN QUANTITATIV 2.02 MG/DL (0.00-0.30); CALCIUM LEVEL 8.3 MG/DL (8.8-10.2); CREATININE FOR GFR 1.58 MG/DL (0.55-1.30); GLOMERULAR FILTRATION RATE 34.5 (>45); MAGNESIUM LEVEL 2.6 MG/DL (1.8-2.4); POTASSIUM SERUM 3.9 MEQ/L (3.5-5.1)
[2021-01-18] MEDS: ASPIRIN 81MG ENTERIC TABLET PO SCH (09:22)
[2021-01-18] MEDS: LACTOBACILLUS ACIDOPHILUS CAP (BACID) PO SCH (09:22)
[2021-01-18] MEDS: PANTOPRAZOLE 40MG TAB (PROTONIX) PO SCH (09:22)
[2021-01-18] MEDS: predniSONE 20 MG TAB PO SCH (09:22)
[2021-01-18] MEDS: POTASSIUM CHLORIDE 10MEQ SR TABLET PO SCH (09:23)
[2021-01-18] MEDS: amLODIPine 5 MG TAB PO SCH ×2 (09:23→20:37)
[2021-01-18] MEDS: allopurinoL 100 MG TAB PO SCH (09:23)
[2021-01-18] MEDS: LEVEMIR (INSULIN DETEMIR) 1 UNITS/0.01ML SC SCH (09:24)
--- NOTE | 2021-01-18 12:11 | IPNPDOC ---
Text Note Date of Service The patient was seen on 01/18/21. NOTE Subjective: Patient is a 70-year-old female with a PMHx of CAD s/p stent, HTN, CHF, DVT, DM2, DLP, Hypothyroidism, CKD4, Gout, Cervical CA, GERD who presented to emergency room with complaints of shortness of breath for approximately 1 week. In the emergency room, patient had tested positive for COVID19 and was admitted to the hospitalist service for further evaluation and treatment. Patient was medically cleared and made ALC status on 01/12/2021. Patient was seen and examined at the bedside. Currently patient is very upset that she is not going to rehabilitation today. Patient stated that her breathing is doing fine. She is not experiencing any cough. Denies any nausea, vomiting, abdominal pain, diarrhea, or urinary discomfort. Patient did report a poor sleep. Objective: Vitals (See below) General: Lying in bed, appears comfortable, Awake / Alert HEENT: NC, AT CVS: +S1S2 Lungs: Fair air entry b/l, -w/r/r Abdomen: Soft, ND, NT, +BSx4 Extremities: - Edema, - Calf tenderness Imaging: CXR 01/01: Airspace opacities in both lungs, left greater than right, which is in keeping with the patient's history of COVID positive pneumonia. CT head 01/01: Intact skull. No acute intracranial hemorrhage or acute intracranial abnormality. CT angio chest 01/02: 1. No filling defects in the pulmonary arteries to suggest pulmonary emboli. 2. Moderate peripheral ground-glass lung infiltrates, correlate for atypical viral pneumonitis. CT abdomen / pelvis 01/02: 1. Bladder distension. 2. Splenomegaly. 3. Bladder distension. Abdomen XR 01/05: No acute findings or radiographic evidence for a bowel obstruction. CT abdomen / pelvis 01/06: 1. Multiple new moderate to large areas of retroperitoneal hematoma including hematoma involving the right rectus muscle/sheath. 2. Pulmonary parenchymal opacities suggesting early atelectasis/pneumonia. 3. Further findings as above. CXR 01/17: Diffuse left lung infiltrate improved since the prior study. Mild interstitial infiltrate right lung unchanged. Assessment and plan: s/p Acute hypoxic respiratory failure - likely 2/2 COVID19 pneumonia - Clinically patient reports resolution of her symptoms - Saturating well on room air - Imaging noted above - s/p Remdesivir / Dexamethasone; c/w Prednisone taper - c/w inhaled therapy as ordered Atrial fibrillation - s/p RVR - Currently rate controlled - c/w Metoprolol - Not on full anticoagulation (re: Retroperitoneal hematoma); will have outpatient follow up with Surgery Retroperitoneal and rectus sheath hematoma - Hg remains stable - Anticoagulation held; Lovenox and Plavix on hold - c/w Aspirin (was restarted) Acute blood loss anemia - Hemodynamically stable - Hemoglobin remained stable - s/p 2 units PRBC and 1 unit Plasma s/p Hypovolemic shock - 2/2 above ROSA on CKD4 - Cr appears to be at baseline - Torsemide on hold; will re-adjust dosing to every other day s/p Acute metabolic encephalopathy - likely 2/2 medications - Currently is oriented - No focal deficits - Imaging noted above Leukocytosis - possibly 2/2 reactive etiology - Hemodynamically stable and afebrile - No evidence of active infection - UA and repeat chest x-ray noted - No indications to start antibiotics at this time IDDM2 - c/w ISS and Levemir CAD s/p stent - Will resume Atorvastatin - c/w ASA Chronic Systolic CHF - No evidence of exacerbation - Torsemide on hold; will likely resume every other day HTN - BP well controlled - s/p Imdur - c/w Metoprolol DLP - c/w Atorvastatin Hypothyroidism - c/w Levothyroxine Gout - c/w Allopurinol Insomnia - c/w Ramelteon GERD - c/w Protonix DVT prophylaxis - c/w TEDs/Sequentials Disposition: - c/w ALC status - Patient remains medically cleared - Awaiting placement to rehab [facility] I+O [facility] I+O Laboratory Tests 01/17/21 12:46 01/17/21 14:22 01/18/21 05:59 Vital Signs Date Time Temp Pulse Resp B/P (MAP) Pulse Ox O2 Delivery O2 Flow Rate FiO2 01/18/21 09:23 86 129/60 01/18/21 06:00 97.3 16 95 Room Air 01/17/21 05:37 1.0 I&O- Last 24 Hours up to 6 AM 01/18/21 06:00 Intake Total 270 ml Output Total 200 ml Balance 70 ml DAVID ARONLD MD Jan 18, 2021 12:11
[2021-01-18 13:00] VITALS: BP 123/78
[2021-01-18] MEDS: ATORVASTATIN 10 MG TAB PO SCH (13:04)
[2021-01-18 21:22] VITALS: BP 122/74
[2021-01-19] MEDS: METOPROLOL TART 25 MG TABLET PO SCH ×5 (02:14→23:40)
[2021-01-19 04:00] VITALS: BP 165/74
[2021-01-19] MEDS: SODIUM CHLORIDE 0.9% INJ 10 ML SYR IV SCH ×2 (06:50→13:02)
[2021-01-19] MEDS: LEVOTHYROXINE 150MCG TABLET (0.15MG) PO SCH (06:50)
[2021-01-19] MEDS: HumaLOG INSULIN (NovoLOG) PER UNIT SC SCH ×4 (07:30→20:51)
[2021-01-19 08:37] LABS: BASO % 0.1 % (0.0-1.0); EOS % 0.2 % (0.0-3.0); HEMATOCRIT 29.7 % (36.0-47.0); HEMOGLOBIN 9.7 g/dl (12.0-15.5); LYMPH % 7.8 % (24.0-44.0); MEAN CORPUSCULAR HEMOGLOBIN 32.2 pg (27.0-33.0); MEAN CORPUSCULAR HGB CONC 32.7 g/dl (32.0-36.5); MEAN CORPUSCULAR VOLUME 98.7 fl (80.0-96.0); MONO # 0.7 10^3/uL (0.0-0.8); MONO % 5.4 % (2.0-8.0); NEUTROPHILS % 85.7 % (36.0-66.0); PLATELET COUNT, AUTOMATED 127 10^3/uL (150-450); RED BLOOD COUNT 3.01 10^6/uL (4.00-5.40); WHITE BLOOD COUNT 12.8 10^3/uL (4.0-10.0)
[2021-01-19 08:49] LABS: C REACTIVE PROTEIN QUANTITATIV 3.15 MG/DL (0.00-0.30); CALCIUM LEVEL 8.8 MG/DL (8.8-10.2); CREATININE FOR GFR 1.05 MG/DL (0.55-1.30); GLOMERULAR FILTRATION RATE 55.3 (>45); MAGNESIUM LEVEL 2.4 MG/DL (1.8-2.4)
[2021-01-19] MEDS: POTASSIUM CHLORIDE 10MEQ SR TABLET PO SCH (10:00)
[2021-01-19] MEDS: ATORVASTATIN 10 MG TAB PO SCH (10:01)
[2021-01-19] MEDS: ASPIRIN 81MG ENTERIC TABLET PO SCH (10:01)
[2021-01-19] MEDS: PANTOPRAZOLE 40MG TAB (PROTONIX) PO SCH (10:01)
[2021-01-19] MEDS: predniSONE 10 MG TAB PO SCH (10:01)
[2021-01-19] MEDS: LACTOBACILLUS ACIDOPHILUS CAP (BACID) PO SCH (10:02)
[2021-01-19] MEDS: amLODIPine 5 MG TAB PO SCH ×2 (10:05→20:47)
[2021-01-19] MEDS: allopurinoL 100 MG TAB PO SCH (10:05)
[2021-01-19] MEDS: LEVEMIR (INSULIN DETEMIR) 1 UNITS/0.01ML SC SCH (10:07)
[2021-01-19 23:33] VITALS: BP 151/64
[2021-01-19 23:36] VITALS: BP 151/64
[2021-01-20 04:36] VITALS: BP 171/77
[2021-01-20 04:38] VITALS: BP 149/68
[2021-01-20] MEDS: METOPROLOL TART 25 MG TABLET PO SCH ×3 (05:41→17:33)
[2021-01-20 05:47] VITALS: BP 149/68
[2021-01-20 06:49] LABS: BASO % 0.1 % (0.0-1.0); EOS # 0.1 10^3/uL (0.0-0.5); EOS % 0.7 % (0.0-3.0); HEMATOCRIT 32.3 % (36.0-47.0); HEMOGLOBIN 10.3 g/dl (12.0-15.5); LYMPH % 9.6 % (24.0-44.0); MEAN CORPUSCULAR HEMOGLOBIN 32.4 pg (27.0-33.0); MEAN CORPUSCULAR HGB CONC 31.9 g/dl (32.0-36.5); MEAN CORPUSCULAR VOLUME 101.6 fl (80.0-96.0); MONO # 0.5 10^3/uL (0.0-0.8); MONO % 5.2 % (2.0-8.0); NEUTROPHILS # 8.4 10^3/uL (1.5-8.5); NEUTROPHILS % 83.6 % (36.0-66.0); PLATELET COUNT, AUTOMATED 122 10^3/uL (150-450); RED BLOOD COUNT 3.18 10^6/uL (4.00-5.40)
[2021-01-20] MEDS: LEVOTHYROXINE 150MCG TABLET (0.15MG) PO SCH (06:55)
[2021-01-20 07:15] LABS: C REACTIVE PROTEIN QUANTITATIV 2.99 MG/DL (0.00-0.30); CREATININE FOR GFR 1.09 MG/DL (0.55-1.30); MAGNESIUM LEVEL 2.4 MG/DL (1.8-2.4); POTASSIUM SERUM 4.7 MEQ/L (3.5-5.1)
[2021-01-20] MEDS: HumaLOG INSULIN (NovoLOG) PER UNIT SC SCH ×4 (07:30→21:00)
[2021-01-20] MEDS: ATORVASTATIN 10 MG TAB PO SCH (08:39)
[2021-01-20] MEDS: predniSONE 10 MG TAB PO SCH (08:39)
[2021-01-20] MEDS: LACTOBACILLUS ACIDOPHILUS CAP (BACID) PO SCH (08:39)
[2021-01-20] MEDS: PANTOPRAZOLE 40MG TAB (PROTONIX) PO SCH (08:40)
[2021-01-20] MEDS: POTASSIUM CHLORIDE 10MEQ SR TABLET PO SCH (08:40)
[2021-01-20] MEDS: TORSEMIDE 20 MG TAB PO SCH (08:41)
[2021-01-20] MEDS: allopurinoL 100 MG TAB PO SCH (08:41)
[2021-01-20] MEDS: ASPIRIN 81MG ENTERIC TABLET PO SCH (08:41)
[2021-01-20] MEDS: LEVEMIR (INSULIN DETEMIR) 1 UNITS/0.01ML SC SCH (08:42)
[2021-01-20] MEDS: amLODIPine 5 MG TAB PO SCH ×2 (08:44→21:37)
[2021-01-21] MEDS: METOPROLOL TART 25 MG TABLET PO SCH ×5 (00:30→23:11)
[2021-01-21 05:35] VITALS: BP 140/66
[2021-01-21] MEDS: LEVOTHYROXINE 150MCG TABLET (0.15MG) PO SCH (05:37)
[2021-01-21] MEDS: HumaLOG INSULIN (NovoLOG) PER UNIT SC SCH ×4 (07:30→21:00)
[2021-01-21] MEDS: predniSONE 10 MG TAB PO SCH (08:40)
[2021-01-21] MEDS: allopurinoL 100 MG TAB PO SCH (08:41)
[2021-01-21] MEDS: ASPIRIN 81MG ENTERIC TABLET PO SCH (08:41)
[2021-01-21] MEDS: PANTOPRAZOLE 40MG TAB (PROTONIX) PO SCH (08:41)
[2021-01-21] MEDS: LACTOBACILLUS ACIDOPHILUS CAP (BACID) PO SCH (08:41)
[2021-01-21] MEDS: POTASSIUM CHLORIDE 10MEQ SR TABLET PO SCH (08:41)
[2021-01-21] MEDS: LEVEMIR (INSULIN DETEMIR) 1 UNITS/0.01ML SC SCH (08:42)
[2021-01-21] MEDS: amLODIPine 5 MG TAB PO SCH ×2 (08:42→21:13)
[2021-01-21] MEDS: ATORVASTATIN 10 MG TAB PO SCH (08:42)
[2021-01-21 10:08] LABS: BASO % 0.1 % (0.0-1.0); EOS # 0.1 10^3/uL (0.0-0.5); EOS % 1.1 % (0.0-3.0); HEMOGLOBIN 10.5 g/dl (12.0-15.5); LYMPH # 1.2 10^3/uL (1.5-5.0); LYMPH % 10.6 % (24.0-44.0); MEAN CORPUSCULAR HEMOGLOBIN 32.1 pg (27.0-33.0); MEAN CORPUSCULAR HGB CONC 31.8 g/dl (32.0-36.5); MEAN CORPUSCULAR VOLUME 100.9 fl (80.0-96.0); MONO # 0.6 10^3/uL (0.0-0.8); MONO % 5.4 % (2.0-8.0); NEUTROPHILS # 9.1 10^3/uL (1.5-8.5); NEUTROPHILS % 82.2 % (36.0-66.0); PLATELET COUNT, AUTOMATED 136 10^3/uL (150-450); RED BLOOD COUNT 3.27 10^6/uL (4.00-5.40)
[2021-01-21 10:29] LABS: C REACTIVE PROTEIN QUANTITATIV 1.61 MG/DL (0.00-0.30); CALCIUM LEVEL 8.4 MG/DL (8.8-10.2); CREATININE FOR GFR 1.45 MG/DL (0.55-1.30); GLOMERULAR FILTRATION RATE 38.1 (>45); POTASSIUM SERUM 4.1 MEQ/L (3.5-5.1)
[2021-01-21 20:00] VITALS: BP 141/72
[2021-01-22] MEDS: METOPROLOL TART 25 MG TABLET PO SCH ×3 (05:07→17:16)
[2021-01-22] MEDS: LEVOTHYROXINE 150MCG TABLET (0.15MG) PO SCH (05:32)
[2021-01-22 06:00] VITALS: BP 139/68
[2021-01-22 06:23] LABS: BASO % 0.1 % (0.0-1.0); EOS # 0.1 10^3/uL (0.0-0.5); HEMATOCRIT 31.8 % (36.0-47.0); HEMOGLOBIN 10.1 g/dl (12.0-15.5); LYMPH % 10.8 % (24.0-44.0); MEAN CORPUSCULAR HEMOGLOBIN 31.9 pg (27.0-33.0); MEAN CORPUSCULAR HGB CONC 31.8 g/dl (32.0-36.5); MEAN CORPUSCULAR VOLUME 100.3 fl (80.0-96.0); MONO # 0.5 10^3/uL (0.0-0.8); MONO % 5.4 % (2.0-8.0); NEUTROPHILS # 7.2 10^3/uL (1.5-8.5); NEUTROPHILS % 81.8 % (36.0-66.0); PLATELET COUNT, AUTOMATED 119 10^3/uL (150-450); RED BLOOD COUNT 3.17 10^6/uL (4.00-5.40); WHITE BLOOD COUNT 8.8 10^3/uL (4.0-10.0)
[2021-01-22 06:46] LABS: C REACTIVE PROTEIN QUANTITATIV 1.13 MG/DL (0.00-0.30); CALCIUM LEVEL 8.8 MG/DL (8.8-10.2); CREATININE FOR GFR 1.21 MG/DL (0.55-1.30); MAGNESIUM LEVEL 2.2 MG/DL (1.8-2.4); POTASSIUM SERUM 3.9 MEQ/L (3.5-5.1)
[2021-01-22] MEDS: HumaLOG INSULIN (NovoLOG) PER UNIT SC SCH ×4 (07:11→21:04)
[2021-01-22] MEDS: LEVEMIR (INSULIN DETEMIR) 1 UNITS/0.01ML SC SCH (09:00)
[2021-01-22] MEDS: LACTOBACILLUS ACIDOPHILUS CAP (BACID) PO SCH (09:27)
[2021-01-22] MEDS: ASPIRIN 81MG ENTERIC TABLET PO SCH (09:27)
[2021-01-22] MEDS: TORSEMIDE 20 MG TAB PO SCH (09:28)
[2021-01-22] MEDS: allopurinoL 100 MG TAB PO SCH (09:28)
[2021-01-22] MEDS: amLODIPine 5 MG TAB PO SCH ×2 (09:28→21:05)
[2021-01-22] MEDS: PANTOPRAZOLE 40MG TAB (PROTONIX) PO SCH (09:28)
[2021-01-22] MEDS: ATORVASTATIN 10 MG TAB PO SCH (09:28)
[2021-01-22] MEDS: predniSONE 20 MG TAB PO SCH (09:28)
[2021-01-22] MEDS: POTASSIUM CHLORIDE 10MEQ SR TABLET PO SCH (09:29)
[2021-01-23] MEDS: METOPROLOL TART 25 MG TABLET PO SCH ×5 (00:08→17:51)
[2021-01-23 04:00] VITALS: BP 124/66
[2021-01-23] MEDS: LEVOTHYROXINE 150MCG TABLET (0.15MG) PO SCH (05:49)
[2021-01-23] MEDS: HumaLOG INSULIN (NovoLOG) PER UNIT SC SCH ×4 (07:30→21:00)
[2021-01-23 07:58] LABS: BASO % 0.1 % (0.0-1.0); EOS # 0.1 10^3/uL (0.0-0.5); EOS % 1.9 % (0.0-3.0); HEMATOCRIT 31.2 % (36.0-47.0); LYMPH # 1.1 10^3/uL (1.5-5.0); LYMPH % 15.1 % (24.0-44.0); MEAN CORPUSCULAR HEMOGLOBIN 32.3 pg (27.0-33.0); MEAN CORPUSCULAR HGB CONC 32.1 g/dl (32.0-36.5); MEAN CORPUSCULAR VOLUME 100.6 fl (80.0-96.0); MONO # 0.4 10^3/uL (0.0-0.8); MONO % 4.6 % (2.0-8.0); NEUTROPHILS # 5.8 10^3/uL (1.5-8.5); NEUTROPHILS % 77.5 % (36.0-66.0); PLATELET COUNT, AUTOMATED 113 10^3/uL (150-450); WHITE BLOOD COUNT 7.5 10^3/uL (4.0-10.0)
[2021-01-23 08:26] LABS: C REACTIVE PROTEIN QUANTITATIV 1.09 MG/DL (0.00-0.30); CALCIUM LEVEL 8.7 MG/DL (8.8-10.2); CREATININE FOR GFR 1.23 MG/DL (0.55-1.30); GLOMERULAR FILTRATION RATE 46.1 (>45); MAGNESIUM LEVEL 2.1 MG/DL (1.8-2.4); POTASSIUM SERUM 3.6 MEQ/L (3.5-5.1)
[2021-01-23] MEDS: PANTOPRAZOLE 40MG TAB (PROTONIX) PO SCH (08:41)
[2021-01-23] MEDS: LACTOBACILLUS ACIDOPHILUS CAP (BACID) PO SCH (08:41)
[2021-01-23] MEDS: predniSONE 20 MG TAB PO SCH (08:41)
[2021-01-23] MEDS: ATORVASTATIN 10 MG TAB PO SCH (08:41)
[2021-01-23] MEDS: ASPIRIN 81MG ENTERIC TABLET PO SCH (08:41)
[2021-01-23] MEDS: amLODIPine 5 MG TAB PO SCH ×2 (08:41→21:32)
[2021-01-23] MEDS: allopurinoL 100 MG TAB PO SCH (08:41)
[2021-01-23] MEDS: POTASSIUM CHLORIDE 10MEQ SR TABLET PO SCH (08:41)
[2021-01-23] MEDS: LEVEMIR (INSULIN DETEMIR) 1 UNITS/0.01ML SC SCH (08:42)
[2021-01-24] MEDS: METOPROLOL TART 25 MG TABLET PO SCH ×3 (00:12→12:39)
[2021-01-24 04:54] VITALS: BP 145/67
[2021-01-24] MEDS: LEVOTHYROXINE 150MCG TABLET (0.15MG) PO SCH (04:56)
[2021-01-24 06:14] LABS: EOS # 0.1 10^3/uL (0.0-0.5); HEMATOCRIT 29.4 % (36.0-47.0); HEMOGLOBIN 9.5 g/dl (12.0-15.5); LYMPH # 1.1 10^3/uL (1.5-5.0); LYMPH % 16.3 % (24.0-44.0); MEAN CORPUSCULAR HEMOGLOBIN 32.5 pg (27.0-33.0); MEAN CORPUSCULAR HGB CONC 32.3 g/dl (32.0-36.5); MEAN CORPUSCULAR VOLUME 100.7 fl (80.0-96.0); MONO # 0.3 10^3/uL (0.0-0.8); MONO % 4.6 % (2.0-8.0); NEUTROPHILS % 76.6 % (36.0-66.0); PLATELET COUNT, AUTOMATED 105 10^3/uL (150-450); RED BLOOD COUNT 2.92 10^6/uL (4.00-5.40); WHITE BLOOD COUNT 6.6 10^3/uL (4.0-10.0)
[2021-01-24 06:40] LABS: C REACTIVE PROTEIN QUANTITATIV 1.25 MG/DL (0.00-0.30); CALCIUM LEVEL 8.4 MG/DL (8.8-10.2); CREATININE FOR GFR 1.11 MG/DL (0.55-1.30); GLOMERULAR FILTRATION RATE 51.9 (>45); MAGNESIUM LEVEL 2.3 MG/DL (1.8-2.4); POTASSIUM SERUM 3.6 MEQ/L (3.5-5.1)
[2021-01-24] MEDS: HumaLOG INSULIN (NovoLOG) PER UNIT SC SCH ×2 (07:30→12:38)
[2021-01-24] MEDS: LACTOBACILLUS ACIDOPHILUS CAP (BACID) PO SCH (08:56)
[2021-01-24] MEDS: ASPIRIN 81MG ENTERIC TABLET PO SCH (08:56)
[2021-01-24] MEDS: allopurinoL 100 MG TAB PO SCH (08:56)
[2021-01-24] MEDS: ATORVASTATIN 10 MG TAB PO SCH (08:56)
[2021-01-24] MEDS: predniSONE 20 MG TAB PO SCH (08:56)
[2021-01-24] MEDS: PANTOPRAZOLE 40MG TAB (PROTONIX) PO SCH (08:57)
[2021-01-24] MEDS: TORSEMIDE 20 MG TAB PO SCH (08:57)
[2021-01-24] MEDS: POTASSIUM CHLORIDE 10MEQ SR TABLET PO SCH (08:57)
[2021-01-24] MEDS: amLODIPine 5 MG TAB PO SCH (08:57)
[2021-01-24] MEDS: LEVEMIR (INSULIN DETEMIR) 1 UNITS/0.01ML SC SCH (09:00)
[2021-01-24 12:39] VITALS: BP 118/70
[2021-01-24] MEDS ORDERED: PRED10TA2 PO (13:22)
[2021-01-24] MEDS ORDERED: AMLO1TAB24 PO (13:22)
[2021-01-24] MEDS ORDERED: VENTAER INH (13:22)
[2021-01-24] MEDS ORDERED: TORS20TA2 PO (13:22)
[2021-01-24] MEDS ORDERED: RISATAB3 PO (13:22)
[2021-01-24] MEDS ORDERED: POTA-136 PO (13:22)
[2021-01-24] MEDS ORDERED: ASPI-551 PO (13:22)
--- NOTE | 2021-01-24 19:47 | DS.PDOC ---
Discharge Summary General Date of Admission Jan 02, 2021 at 03:45 Date of Discharge 01/24/2021 Attending Physician: LENKA HAQ MD Discharge Summary PROCEDURES PERFORMED DURING STAY: TLC placement by Dr. Eller ADMITTING DIAGNOSES: Covid-19 PNA Acute hypoxemic respiratory failure DISCHARGE DIAGNOSES: Covid-19 PNA Acute hypoxemic respiratory failure Hemorrhagic shock 2/2 RP bleed and possible GIB i/s/o therapeutic anticoagulation Afib with RVR Acute blood loss anemia 2/2 RP bleed and possible GI bleed i/s/o therapeutic lovenox w/ hemorrhagic shock Acute metabolic encephalopathy ROSA on chronic kidney disease stage IV w/ solitary kidney Critical illness myopathy with deconditioning Diabetes Chronic Systolic CHF Gout Hyperlipidemia Hypothyroidism Hypertension CAD COMPLICATIONS/CHIEF COMPLAINT: Pneumonia Due To Covid-19 Virus. HISTORY OF PRESENT ILLNESS: 70-year-old female with a PMHx of CAD s/p stent, HTN, CHF, DVT, DM2, DLP, Hypothyroidism, CKD4, Gout, Cervical CA, GERD who presented to emergency room with complaints of shortness of breath for approximately 1 week. In the emergency room, patient had tested positive for COVID19 and was admitted to the hospitalist service for further evaluation and treatment. HOSPITAL COURSE: She was admitted for covid-19 PNA and her course was c/b worsening hypoxemic respiratory failure to ARDS reqiring 100% Fio2 on vapotherm, as well Afib with RVR and was placed on therapeutic lovenox and her course was further c/b hemorrhagic shock 2/2 RP bleeding and potential GIB for which she received 2 u of pRBCs wit eventual stopping of bleeding after stopping anticoagulation and administration of FFP. She otherwise improved with remdesevir and dexamethasone and returned to room air. She certainly had critical illness related deconditioning and she worked with PT and was deemed safe for home discharge wit h home services and supportive hardware. Her course by issue was as noted below: Acute hypoxic respiratory failure - 2/2 COVID19 pneumonia -c/b ARDS, requiring vapotherm that was eventually weaned, and now back on room air -s/p Remdesivir / Dexamethasone, now completing a Prednisone taper -to continue with inhaler Atrial fibrillation - was complicated by RVR, now rate controlled on Metoprolol - Not on anticoagulation as she had a Retroperitoneal hematoma and acute anemia Retroperitoneal and rectus sheath hematoma while on therapeutic lovenox -Anticoagulation was held and Plavix was held -Now being discharged home on ASA and plavix. No anticoagulation Acute blood loss anemia 2/2 RP bleed and possible GI bleed i/s/o therapeutic lovenox w/ hemorrhagic shock - s/p 2 units PRBC and 1 unit of FFP. Stabilized. ROSA on CKD4 - Cr returned to baseline with volume resuscitation and holding loop diuretic s/p Acute metabolic encephalopathy: resolved - Currently is oriented - No focal deficits - Imaging noted above Leukocytosis - was possibly 2/2 reactive etiology - Hemodynamically stable and afebrile - No evidence of active infection - UA and repeat chest x-ray noted - No indications for antibiotic therapy IDDM2 - c/w ISS and Levemir CAD s/p stent - Will resume Atorvastatin - c/w ASA Chronic Systolic CHF - No evidence of exacerbation - Torsemide, to continue every other day HTN: BP well controlled -c/w Metoprolol, amlodipine DLP - c/w Atorvastatin Hypothyroidism - c/w Levothyroxine Gout - c/w Allopurinol GERD - c/w Protonix DISCHARGE MEDICATIONS: Please see below. ALLERGIES: Please see below. PHYSICAL EXAMINATION ON DISCHARGE: VITAL SIGNS: Please see below. General: Sitting up in chair, appears comfortable, Awake / Alert HEENT: NC, AT CVS: +S1S2 Lungs: Fair air entry b/l, -w/r/r Abdomen: Soft, ND, NT, +BSx4 Extremities: - Edema, - Calf tenderness LABORATORY DATA: Please see below. IMAGING: CXR 01/01: Airspace opacities in both lungs, left greater than right, which is in keeping with the patient's history of COVID positive pneumonia. CT head 01/01: Intact skull. No acute intracranial hemorrhage or acute intracranial abnormality. CT angio chest 01/02: 1. No filling defects in the pulmonary arteries to suggest pulmonary emboli. 2. Moderate peripheral ground-glass lung infiltrates, correlate for atypical viral pneumonitis. CT abdomen / pelvis 01/02: 1. Bladder distension. 2. Splenomegaly. 3. Bladder distension. Abdomen XR 01/05: No acute findings or radiographic evidence for a bowel obstruction. CT abdomen / pelvis 01/06: 1. Multiple new moderate to large areas of retroperitoneal hematoma including hematoma involving the right rectus muscle/sheath. 2. Pulmonary parenchymal opacities suggesting early atelectasis/pneumonia. 3. Further findings as above. CXR 01/17: Diffuse left lung infiltrate improved since the prior study. Mild interstitial infiltrate right lung unchanged. PROGNOSIS: Good ACTIVITY: As tolerated DIET: consistent carb, 2g sodium DISCHARGE PLAN: Home with services. DISPOSITION: Home Health Service. DISCHARGE INSTRUCTIONS: Home with services. To follow up with PCP within 7d. ITEMS TO FOLLOWUP ON ON OUTPATIENT: Resolution of covid-19 symptoms and related illness Anemia f/u with labs Nephrology follow up DISCHARGE CONDITION: Stable TIME SPENT ON DISCHARGE: 65 minutes. Vital Signs/I&Os Vital Signs Date Time Temp Pulse Resp B/P (MAP) Pulse Ox O2 Delivery O2 Flow Rate FiO2 01/24/21 12:39 64 118/70 01/24/21 04:54 97.5 18 98 Room Air I&O- Last 24 Hours up to 6 AM 01/24/21 06:00 Intake Total 1220 ml Balance 1220 ml Laboratory Data Labs 24H Laboratory Tests 2 01/23/21 21:01: Bedside Glucose (Misc Panel) 181H 01/24/21 05:55: Immature Granulocyte % (Auto) 0.5, Neutrophils (%) (Auto) 76.6H, Lymphocytes (%) (Auto) 16.3L, Monocytes (%) (Auto) 4.6, Eosinophils (%) (Auto) 2.0, Basophils (%) (Auto) 0.0, Neutrophils # (Auto) 5.0, Lymphocytes # (Auto) 1.1L, Monocytes # (Auto) 0.3, Eosinophils # (Auto) 0.1, Basophils # (Auto) 0.0, Nucleated Red Blood Cells % (auto) 0.0, Anion Gap 2L, Glomerular Filtration Rate 51.9, Calcium Level 8.4L, Magnesium Level 2.3, C-Reactive Protein, Quantitative 1.25H 01/24/21 12:13: Bedside Glucose (Misc Panel) 210H CBC/BMP Laboratory Tests 01/24/21 05:55 FSBS Laboratory Tests Test 01/23/21 21:01 01/24/21 12:13 Range/Units Bedside Glucose (Misc Panel) 181 210 80-115 MG/DL Microbiology Microbiology 01/17/21 Blood Culture - Final, Complete NO GROWTH AFTER 5 DAYS 01/17/21 Blood Culture - Final, Complete NO GROWTH AFTER 5 DAYS 01/16/21 Respiratory Virus Panel (PCR) (LASHAWN) - Final, Complete SARS-CoV-2 (COVID 19) Discharge Medications Scheduled Allopurinol (Allopurinol) 100 Mg Tablet, 100 MG PO DAILY, (Reported) Amitriptyline HCl (Amitriptyline HCl) 25 Mg Tablet, 25 MG PO DAILY, (Reported) Amlodipine Besylate (Amlodipine Besylate) 5 Mg Tablet, 5 MG PO BID Aspirin (Aspirin EC) 81 Mg Tablet.dr, 81 MG PO DAILY Atorvastatin Calcium (Atorvastatin Calcium) 10 Mg Tablet, 10 MG PO DAILY, (R eported) Cholecalciferol (Vitamin D3) (Vitamin D3) 1,000 Unit Tablet, 1,000 UNITS PO DAILY, (Reported) Clopidogrel Bisulfate (Clopidogrel) 75 Mg Tablet, 75 MG PO DAILY, (Reported) Colestipol HCl (Colestipol HCl) 1 Gm Tablet, 1 GM PO BID, (Reported) Ezetimibe (Ezetimibe) 10 Mg Tablet, 10 MG PO DAILY, (Reported) Ferrous Sulfate (Iron) 325 Mg Tablet, 65 MG PO DAILY, (Reported) Gabapentin (Gabapentin) 300 Mg Capsule, 300 MG PO TID, (Reported) Insulin Glargine,Hum.rec.anlog (Basaglar Kwikpen U-100) 100 Unit/1 Ml Insuln.pen, 20 UNIT SC DAILY, (Reported) L.acidoph/L.bulg/B.bif/S.therm (Laurie-Bid Caplet) 1 Each Tablet, 1 EA PO DAILY Levothyroxine Sodium (Levothyroxine Sodium) 150 Mcg Tablet, 150 MCG PO DAILY, (Reported) Melatonin (Melatonin) 5 Mg Capsule, 5 MG PO QHS, (Reported) Metoprolol Tartrate (Metoprolol Tartrate) 50 Mg Tablet, 50 MG PO BID, (Reported) Pantoprazole Sodium (Pantoprazole Sodium) 40 Mg Tablet.dr, 40 MG PO DAILY, (Reported) Potassium Chloride (Klor-Con M10) 10 Meq Tab.er.prt, 20 MEQ PO DAILY Prednisone (Prednisone) 10 Mg Tablet, 10 MG PO DAILY Torsemide (Torsemide) 20 Mg Tablet, 20 MG PO Q48H Scheduled PRN Albuterol Sulfate (Ventolin Hfa) 18 Gm Hfa.aer.ad, 2 PUFF INH Q6HP PRN for SHORTNESS OF BREATH Zolpidem Tartrate (Zolpidem Tartrate) 5 Mg Tablet, 5 MG PO QPMP PRN for sleep, (Reported) Miscellaneous Medications [med rec comment] , (Reported) pt. unaware of med names or doses or last dosage taken,used external med hi story Allergies Coded Allergies: Macrolide Antibiotics (Verified Allergy, Unknown, 12/23/19) Penicillins (Verified Allergy, Unknown, 12/23/19) Quinolones (Verified Allergy, Unknown, 02/01/20) codeine (Verified Allergy, Unknown, 12/23/19) erythromycin base (Verified Allergy, Unknown, 12/23/19) morphine (Verified Allergy, Unknown, 12/23/19) nitroglycerin (Verified Allergy, Unknown, PATCHES, 02/01/20) ranolazine (Verified Allergy, Unknown, 02/01/20) telithromycin (Verified Allergy, Unknown, 12/23/19) LENKA HAQ MD Jan 24, 2021 19:47
[2021-01-25] MEDS ORDERED: predniSONE 10 MG TAB PO SCH (09:00)
== END 2021-01-24 17:00 | disposition home health service (06) | DRG 177 ==
LOC: M ED 20:32 → M ED INP 01-02 03:45 → ENRESERV 01-02 04:06 → M 4MAIN 01-02 05:09 → M ICU 01-06 11:56 → M 4MAIN 01-08 18:14
PROVIDERS: ADMIT Family Medicine; ATTEND Internal Medicine
PROC: 06HM33Z Insertion of Infusion Device into Right Femoral Vein, Percutaneous Approach (ICD-10-PCS; principal; 2021-01-06)
PROC: 30233N1 Transfusion of Nonautologous Red Blood Cells into Peripheral Vein, Percutaneous Approach (ICD-10-PCS; 2021-01-06)
DX: U07.1 COVID-19 (principal); J12.82 Pneumonia due to coronavirus disease 2019; J96.01 Acute respiratory failure with hypoxia; G93.41 Metabolic encephalopathy; R57.1 Hypovolemic shock; K66.1 Hemoperitoneum; I13.0 Hypertensive heart and chronic kidney disease with heart failure and stage 1 through stage 4 chronic kidney disease, or unspecified chronic kidney disease; N18.4 Chronic kidney disease, stage 4 (severe); I50.42 Chronic combined systolic (congestive) and diastolic (congestive) heart failure; N17.9 Acute kidney failure, unspecified; D62 Acute posthemorrhagic anemia; D68.32 Hemorrhagic disorder due to extrinsic circulating anticoagulants; E87.2 Acidosis; K92.1 Melena; E11.9 Type 2 diabetes mellitus without complications; M79.81 Nontraumatic hematoma of soft tissue; M10.9 Gout, unspecified; E03.9 Hypothyroidism, unspecified; E78.5 Hyperlipidemia, unspecified; K21.9 Gastro-esophageal reflux disease without esophagitis; I25.10 Atherosclerotic heart disease of native coronary artery without angina pectoris; Z85.41 Personal history of malignant neoplasm of cervix uteri; I48.91 Unspecified atrial fibrillation; Z79.899 Other long term (current) drug therapy; Z79.82 Long term (current) use of aspirin; Z88.0 Allergy status to penicillin; Z88.8 Allergy status to other drugs, medicaments and biological substances; Z88.5 Allergy status to narcotic agent; Z87.891 Personal history of nicotine dependence; Z79.4 Long term (current) use of insulin; Z86.718 Personal history of other venous thrombosis and embolism

== ENCOUNTER → 2021-02-07 | Outpatient (REF) | payer MEDICARE ==
[~2021-02-07] MED LIST changes: +AMLO1TAB24 PO; +ASPI-551 PO; +BASA100I SC; +FURO80TA2 PO; +LEVO150T7 PO; +POTA-136 PO; +PRED10TA2 PO; +RISATAB3 PO; +TORS20TA2 PO; +VENTAER INH; +med rec comment
[2021-02-07 16:21] LABS: HEMATOCRIT 37.1 % (36.0-47.0); HEMOGLOBIN 11.5 g/dl (12.0-15.5); MEAN CORPUSCULAR HEMOGLOBIN 32.3 pg (27.0-33.0); MEAN CORPUSCULAR VOLUME 104.2 fl (80.0-96.0); PLATELET COUNT, AUTOMATED 232 10^3/uL (150-450); RED BLOOD COUNT 3.56 10^6/uL (4.00-5.40); WHITE BLOOD COUNT 6.3 10^3/uL (4.0-10.0)
[2021-02-07 16:49] LABS: CALCIUM LEVEL 9.1 MG/DL (8.8-10.2); CREATININE FOR GFR 2.18 MG/DL (0.55-1.30); GLOMERULAR FILTRATION RATE 23.8 (>45); POTASSIUM SERUM 4.1 MEQ/L (3.5-5.1)
[2021-02-07 16:50] LABS: ALBUMIN 2.7 GM/DL (3.2-5.2); BILIRUBIN,TOTAL 0.9 MG/DL (0.2-1.0); MAGNESIUM LEVEL 1.8 MG/DL (1.8-2.4); TOTAL PROTEIN 6.3 GM/DL (6.4-8.2)
[2021-02-07 17:28] LABS: HEMOGLOBIN A1c 5.1 %
== END ==
LOC: M SFHCADAM 12:02
PROVIDERS: ATTEND Physician Assistant
DX: E11.21 Type 2 diabetes mellitus with diabetic nephropathy (principal); R60.0 Localized edema; N18.4 Chronic kidney disease, stage 4 (severe); S36.899D Unspecified injury of other intra-abdominal organs, subsequent encounter
CPT/HCPCS: 80053; 83036; 83735; 85027; G0463

== ENCOUNTER → 2021-05-09 | Outpatient (REF) | payer MEDICARE ==
[~2021-05-09] MED LIST changes: -D31000TA2 PO; +VITA100093 PO
== END ==
LOC: M SFHCADAM 12:39
PROVIDERS: ATTEND Family Medicine
DX: N30.01 Acute cystitis with hematuria (principal)

== ENCOUNTER → 2021-05-17 | Outpatient (REF) | payer MEDICARE ==
[2021-05-17 16:51] LABS: ALBUMIN 3.5 GM/DL (3.2-5.2); BILIRUBIN,TOTAL 0.5 MG/DL (0.2-1.0); CALCIUM LEVEL 9.2 MG/DL (8.8-10.2); CREATININE FOR GFR 1.47 MG/DL (0.55-1.30); FREE T4 1.53 NG/DL (0.76-1.46); GLOMERULAR FILTRATION RATE 37.4 (>39); POTASSIUM SERUM 3.5 MEQ/L (3.5-5.1); THYROID STIMULATING HORMONE 0.108 uIU/ML (0.358-3.740); TOTAL PROTEIN 7.4 GM/DL (6.4-8.2)
[2021-05-17 17:00] LABS: HEMATOCRIT 45.9 % (36.0-47.0); HEMOGLOBIN 14.5 g/dl (12.0-15.5); MEAN CORPUSCULAR HGB CONC 31.6 g/dl (32.0-36.5); PLATELET COUNT, AUTOMATED 225 10^3/uL (150-450); RED BLOOD COUNT 4.83 10^6/uL (4.00-5.40); WHITE BLOOD COUNT 9.5 10^3/uL (4.0-10.0)
[2021-05-17 17:17] LABS: TOTAL 25(OH) VITAMIN D 26.6 NG/ML (30.0-100.0)
[2021-05-17 17:18] LABS: FOLATE 2.2 NG/ML
[2021-05-17 18:50] LABS: HEMOGLOBIN A1c 6.9 %
== END ==
LOC: M SFHCADAM 12:06
PROVIDERS: ATTEND Physician Assistant
DX: E11.21 Type 2 diabetes mellitus with diabetic nephropathy (principal); N18.4 Chronic kidney disease, stage 4 (severe); I50.20 Unspecified systolic (congestive) heart failure

== ENCOUNTER → 2021-09-24 | Outpatient (REF) | payer MEDICARE ==
[2021-09-24 12:57] LABS: BASO # 0.1 10^3/uL (0.0-0.2); BASO % 0.7 % (0.0-1.0); EOS # 0.2 10^3/uL (0.0-0.5); EOS % 2.4 % (0.0-3.0); HEMATOCRIT 44.2 % (36.0-47.0); HEMOGLOBIN 13.8 g/dl (12.0-15.5); LYMPH # 2.7 10^3/uL (1.5-5.0); MEAN CORPUSCULAR HEMOGLOBIN 31.2 pg (27.0-33.0); MEAN CORPUSCULAR HGB CONC 31.2 g/dl (32.0-36.5); MONO # 0.4 10^3/uL (0.0-0.8); MONO % 4.8 % (2.0-8.0); NEUTROPHILS # 5.5 10^3/uL (1.5-8.5); NEUTROPHILS % 61.7 % (36.0-66.0); PLATELET COUNT, AUTOMATED 202 10^3/uL (150-450); RED BLOOD COUNT 4.42 10^6/uL (4.00-5.40); WHITE BLOOD COUNT 8.9 10^3/uL (4.0-10.0)
[2021-09-24 13:56] LABS: ALBUMIN 3.5 GM/DL (3.2-5.2); BILIRUBIN,TOTAL 0.5 MG/DL (0.2-1.0); CALCIUM LEVEL 9.9 MG/DL (8.8-10.2); CREATININE FOR GFR 1.93 MG/DL (0.55-1.30); FREE T4 0.95 NG/DL (0.76-1.46); GLOMERULAR FILTRATION RATE 27.3 (>39); POTASSIUM SERUM 4.2 MEQ/L (3.5-5.1); THYROID STIMULATING HORMONE 5.55 uIU/ML (0.358-3.740); TOTAL PROTEIN 7.3 GM/DL (6.4-8.2)
[2021-09-24 15:24] LABS: HEMOGLOBIN A1c 6.2 %
== END ==
LOC: M SFHCADAM 07:07
PROVIDERS: ATTEND Physician Assistant
DX: N30.01 Acute cystitis with hematuria (principal); E03.9 Hypothyroidism, unspecified; Z00.00 Encounter for general adult medical examination without abnormal findings; E11.21 Type 2 diabetes mellitus with diabetic nephropathy; N18.4 Chronic kidney disease, stage 4 (severe); Z90.5 Acquired absence of kidney

== ENCOUNTER → 2022-04-10 | Outpatient (REF) | payer MEDICARE ==
[~2022-04-10] MED LIST changes: +APRE30TA3 PO; -OTEZ1TAB3 PO
[2022-04-10 16:48] LABS: HEMOGLOBIN A1c 6.8 % (4.0-6.0)
[2022-04-10 16:55] LABS: FREE T4 1.5 NG/DL (0.89-1.76)
[2022-04-10 16:56] LABS: THYROID STIMULATING HORMONE 1.28 uIU/ML (0.55-4.78)
== END ==
LOC: M SFHCADAM 12:00
PROVIDERS: ATTEND Nurse Practitioner Family
DX: E11.21 Type 2 diabetes mellitus with diabetic nephropathy (principal); E03.9 Hypothyroidism, unspecified

== ENCOUNTER → 2022-10-08 | Outpatient (REF) | payer MEDICARE ==
[~2022-10-08] MED LIST changes: +ENAL1TAB48 PO; -ENAL5TA PO
== END ==
LOC: M SFHCADAM 17:33
PROVIDERS: ATTEND Physician Assistant
DX: E11.21 Type 2 diabetes mellitus with diabetic nephropathy (principal)

== ENCOUNTER → 2022-10-30 | Outpatient (REF) | payer MEDICARE ==
[~2022-10-30] MED LIST changes: -AMIT25TA17 PO; +AMIT25TA19 PO
[2022-10-30 15:42] LABS: BASO # 0.1 10^3/uL (0.0-0.2); BASO % 0.7 % (0.0-1.0); EOS # 0.4 10^3/uL (0.0-0.5); EOS % 3.5 % (0.0-3.0); HEMATOCRIT 48.3 % (36.0-47.0); HEMOGLOBIN 14.9 g/dl (12.0-15.5); LYMPH # 2.3 10^3/uL (1.5-5.0); LYMPH % 21.9 % (24.0-44.0); MEAN CORPUSCULAR HEMOGLOBIN 31.4 pg (27.0-33.0); MEAN CORPUSCULAR HGB CONC 30.8 g/dl (32.0-36.5); MEAN CORPUSCULAR VOLUME 101.7 fl (80.0-96.0); MONO # 0.5 10^3/uL (0.0-0.8); NEUTROPHILS # 7.3 10^3/uL (1.5-8.5); NEUTROPHILS % 68.3 % (36.0-66.0); PLATELET COUNT, AUTOMATED 222 10^3/uL (150-450); RED BLOOD COUNT 4.75 10^6/uL (4.00-5.40); WHITE BLOOD COUNT 10.7 10^3/uL (4.0-10.0)
[2022-10-30 15:43] LABS: ALBUMIN 3.5 G/DL (3.2-5.2); BILIRUBIN,TOTAL 0.5 MG/DL (0.3-1.2); CALCIUM LEVEL 9.4 MG/DL (8.3-10.6); CREATININE FOR GFR 2.33 MG/DL (0.55-1.30); GLOMERULAR FILTRATION RATE 21.9 (>39); TOTAL PROTEIN 7.3 G/DL (5.7-8.2)
== END ==
LOC: M SFHCADAM 09:46
PROVIDERS: ATTEND Physician Assistant
DX: R11.2 Nausea with vomiting, unspecified (principal); R19.7 Diarrhea, unspecified

== ENCOUNTER → 2023-01-01 | Outpatient (REF) | payer MEDICARE ==
[2023-01-01 13:28] LABS: HEMOGLOBIN A1c 6.5 % (4.0-6.0)
[2023-01-01 18:20] LABS: BASO % 0.4 % (0.0-1.0); EOS # 0.2 10^3/uL (0.0-0.5); EOS % 2.4 % (0.0-3.0); HEMATOCRIT 46.7 % (36.0-47.0); HEMOGLOBIN 14.5 g/dl (12.0-15.5); LYMPH # 2.4 10^3/uL (1.5-5.0); LYMPH % 25.6 % (24.0-44.0); MEAN CORPUSCULAR HEMOGLOBIN 32.1 pg (27.0-33.0); MEAN CORPUSCULAR VOLUME 103.3 fl (80.0-96.0); MONO # 0.5 10^3/uL (0.0-0.8); MONO % 5.6 % (2.0-8.0); NEUTROPHILS % 65.8 % (36.0-66.0); PLATELET COUNT, AUTOMATED 201 10^3/uL (150-450); RED BLOOD COUNT 4.52 10^6/uL (4.00-5.40); WHITE BLOOD COUNT 9.2 10^3/uL (4.0-10.0)
[2023-01-01 18:44] LABS: ALBUMIN 3.4 G/DL (3.2-5.2); BILIRUBIN,TOTAL 0.8 MG/DL (0.3-1.2); CALCIUM LEVEL 9.3 MG/DL (8.3-10.6); CREATININE FOR GFR 1.79 MG/DL (0.55-1.30); GLOMERULAR FILTRATION RATE 29.7 (>39); POTASSIUM SERUM 3.3 MMOL/L (3.5-5.1); TOTAL PROTEIN 6.8 G/DL (5.7-8.2)
== END ==
LOC: M SFHCADAM 10:18
PROVIDERS: ATTEND Nurse Practitioner Family
DX: E11.21 Type 2 diabetes mellitus with diabetic nephropathy (principal); I50.20 Unspecified systolic (congestive) heart failure; N18.4 Chronic kidney disease, stage 4 (severe)

== ENCOUNTER → 2023-01-14 | Outpatient (CLI) | payer MEDICARE | LOC: M ADAMS 15:01 | PROVIDERS: ATTEND Physician Assistant | DX: M25.531 Pain in right wrist (principal) ==

== ENCOUNTER → 2023-05-21 | Outpatient (REF) | payer MEDICARE, MEDICAID | LOC: M SFHCADAM 16:50 | PROVIDERS: ATTEND Physician Assistant | DX: I50.20 Unspecified systolic (congestive) heart failure (principal); N18.4 Chronic kidney disease, stage 4 (severe); G62.9 Polyneuropathy, unspecified; E03.9 Hypothyroidism, unspecified; E11.21 Type 2 diabetes mellitus with diabetic nephropathy ==

== ENCOUNTER → 2023-06-12 | Outpatient (REF) | payer MEDICARE, MEDICAID ==
[2023-06-12 14:25] LABS: BASO % 0.4 % (0.0-1.0); EOS # 0.3 10^3/uL (0.0-0.5); EOS % 3.2 % (0.0-3.0); HEMATOCRIT 45.9 % (36.0-47.0); HEMOGLOBIN 14.5 g/dl (12.0-15.5); LYMPH # 2.4 10^3/uL (1.5-5.0); LYMPH % 23.1 % (24.0-44.0); MEAN CORPUSCULAR HEMOGLOBIN 31.6 pg (27.0-33.0); MEAN CORPUSCULAR HGB CONC 31.6 g/dl (32.0-36.5); MONO # 0.5 10^3/uL (0.0-0.8); MONO % 4.6 % (2.0-8.0); NEUTROPHILS # 7.1 10^3/uL (1.5-8.5); NEUTROPHILS % 68.2 % (36.0-66.0); PLATELET COUNT, AUTOMATED 194 10^3/uL (150-450); RED BLOOD COUNT 4.59 10^6/uL (4.00-5.40); WHITE BLOOD COUNT 10.4 10^3/uL (4.0-10.0)
[2023-06-12 14:56] LABS: FOLATE 7.1 NG/ML (>5.4)
[2023-06-12 14:58] LABS: FREE T4 1.37 NG/DL (0.89-1.76)
[2023-06-12 14:59] LABS: ALBUMIN 3.5 G/DL (3.2-5.2); BILIRUBIN,TOTAL 0.6 MG/DL (0.3-1.2); CALCIUM LEVEL 9.1 MG/DL (8.3-10.6); CHOLESTEROL RISK RATIO 2.95 (<5); CREATININE FOR GFR 1.76 MG/DL (0.55-1.30); GLOMERULAR FILTRATION RATE 30.2 (>39); HDL CHOLESTEROL 44.4 MG/DL (>40); HEMOGLOBIN A1c 7.4 % (4.0-6.0); LDL CHOLESTEROL 48.6 MG/DL (<100); NON-HDL-C 86.6 MG/DL; POTASSIUM SERUM 3.2 MMOL/L (3.5-5.1); THYROID STIMULATING HORMONE 1.389 uIU/ML (0.55-4.78); TOTAL PROTEIN 6.8 G/DL (5.7-8.2)
== END ==
LOC: M SFHCADAM 09:58
PROVIDERS: ATTEND Physician Assistant
DX: N18.4 Chronic kidney disease, stage 4 (severe) (principal); E03.9 Hypothyroidism, unspecified; Z79.899 Other long term (current) drug therapy

== ENCOUNTER → 2023-06-26 | Outpatient (REF) | payer MEDICARE, MEDICAID ==
[2023-06-26 13:59] LABS: HEMOGLOBIN A1c 7.5 % (4.0-6.0)
== END ==
LOC: M SFHCADAM 13:24
PROVIDERS: ATTEND Physician Assistant
DX: E11.21 Type 2 diabetes mellitus with diabetic nephropathy (principal); N18.4 Chronic kidney disease, stage 4 (severe); I50.20 Unspecified systolic (congestive) heart failure

== ENCOUNTER → 2023-07-01 | Outpatient (REF) | payer MEDICARE, MEDICAID | LOC: M SFHCADAM 14:43 | PROVIDERS: ATTEND Physician Assistant | DX: E11.40 Type 2 diabetes mellitus with diabetic neuropathy, unspecified (principal); N18.4 Chronic kidney disease, stage 4 (severe); E87.6 Hypokalemia ==

== ENCOUNTER → 2023-10-16 | Outpatient (REF) | payer MEDICARE, MEDICAID ==
[~2023-10-16] MED LIST changes: +ONDA-282 PO; -ONDA4TAB6 PO
[2023-10-16 13:40] LABS: CALCIUM LEVEL 10.2 MG/DL (8.3-10.6); CREATININE FOR GFR 1.56 MG/DL (0.55-1.30); GLOMERULAR FILTRATION RATE 34.7 (>39); POTASSIUM SERUM 3.9 MMOL/L (3.5-5.1)
[2023-10-16 14:25] LABS: HEMOGLOBIN A1c 6.5 % (4.0-6.0)
== END ==
LOC: M SFHCADAM 09:52
PROVIDERS: ATTEND Physician Assistant
DX: E11.40 Type 2 diabetes mellitus with diabetic neuropathy, unspecified (principal); N18.4 Chronic kidney disease, stage 4 (severe); E87.6 Hypokalemia; E11.22 Type 2 diabetes mellitus with diabetic chronic kidney disease

== ENCOUNTER → 2023-11-17 | Outpatient (REF) | payer MEDICARE, MEDICAID ==
[2023-11-17 13:52] LABS: CALCIUM LEVEL 9.6 MG/DL (8.3-10.6); CREATININE FOR GFR 1.57 MG/DL (0.55-1.30); GLOMERULAR FILTRATION RATE 34.5 (>39); POTASSIUM SERUM 3.9 MMOL/L (3.5-5.1)
== END ==
LOC: M SFHCADAM 10:28
PROVIDERS: ATTEND Physician Assistant
DX: E11.40 Type 2 diabetes mellitus with diabetic neuropathy, unspecified (principal); I50.22 Chronic systolic (congestive) heart failure

== ENCOUNTER → 2023-12-12 | Outpatient (CLI) | payer MEDICARE, MEDICAID | LOC: M ADAMS 12:03 | PROVIDERS: ATTEND Physician Assistant | DX: M25.561 Pain in right knee (principal); M85.861 Other specified disorders of bone density and structure, right lower leg; M19.041 Primary osteoarthritis, right hand; M19.042 Primary osteoarthritis, left hand; G89.29 Other chronic pain ==

== ENCOUNTER → 2024-01-19 | Outpatient (CLI) | payer MEDICARE, MEDICAID ==
[~2024-01-19] MED LIST changes: +GABA-1172 PO; -GABA-282 PO
== END ==
LOC: M SOG 07:26
PROVIDERS: ATTEND Physician Assistant
DX: M25.511 Pain in right shoulder (principal)

== ENCOUNTER → 2024-05-28 | Outpatient (REF) | payer MEDICARE, MEDICAID ==
[2024-05-28 18:05] LABS: CHOLESTEROL RISK RATIO 2.68 (<5); HDL CHOLESTEROL 51.4 MG/DL (>40); LDL CHOLESTEROL 54.6 MG/DL (<100); NON-HDL-C 86.6 MG/DL
[2024-05-28 18:38] LABS: HEMOGLOBIN A1c 6.3 % (4.0-6.0)
== END ==
LOC: M SFHCADAM 11:56
PROVIDERS: ATTEND Physician Assistant
DX: I25.10 Atherosclerotic heart disease of native coronary artery without angina pectoris (principal); E11.22 Type 2 diabetes mellitus with diabetic chronic kidney disease

== ENCOUNTER → 2024-06-09 | Outpatient (CLI) | payer MEDICARE, MEDICAID | LOC: M WHC 09:55 | PROVIDERS: ATTEND Physician Assistant | DX: Z13.820 Encounter for screening for osteoporosis (principal); M85.852 Other specified disorders of bone density and structure, left thigh ==

== ENCOUNTER 2024-08-17 11:48 | Inpatient (IN) | payer MEDICARE, MEDICAID ==
[~2024-08-17] VITALS: Ht 152.4 cm; Wt 81.7 kg
[2024-08-17 12:54] LABS: HEMATOCRIT 46.3 % (36.0-47.0); HEMOGLOBIN 14.9 g/dl (12.0-15.5); MEAN CORPUSCULAR HEMOGLOBIN 31.7 pg (27.0-33.0); MEAN CORPUSCULAR HGB CONC 32.2 g/dl (32.0-36.5); MEAN CORPUSCULAR VOLUME 98.5 fl (80.0-96.0); PLATELET COUNT, AUTOMATED 133 10^3/uL (150-450); WHITE BLOOD COUNT 5.8 10^3/uL (4.0-10.0)
[2024-08-17] MEDS: ACETAMINOPHEN 325 MG TAB PO ONE (13:02)
[2024-08-17 13:07] LABS: PARTIAL THROMBOPLASTIN TIME 29.2 SECONDS (24.8-34.2); PROTHROMBIN TIME 13.5 SECONDS (12.5-14.5)
[2024-08-17 13:11] LABS: BASO % 0.7 % (0.0-1.0); LYMPH % 17.5 % (24.0-44.0); MONO # 0.4 10^3/uL (0.0-0.8); MONO % 7.4 % (2.0-8.0); NEUTROPHILS # 4.2 10^3/uL (1.5-8.5)
[2024-08-17 13:21] LABS: BILIRUBIN,DIRECT 0.3 MG/DL (<0.4); CALCIUM LEVEL 8.4 MG/DL (8.3-10.6); CREATININE FOR GFR 1.26 MG/DL (0.55-1.30); GLOMERULAR FILTRATION RATE 45.1 (>39); POTASSIUM SERUM 3.5 MMOL/L (3.5-5.1); TOTAL PROTEIN 6.3 G/DL (5.7-8.2)
[2024-08-17 13:28] LABS: PROCALCITONIN 0.12 ng/ml
[2024-08-17 13:50] LABS: APPEARANCE, URINE HAZY (CLEAR); BACTERIA, URINE AUTO 1+ (NEGATIVE); BILIRUBIN, URINE AUTO NEGATIVE (NEGATIVE); BLOOD, URINE BLOOD 1+ (NEGATIVE); COLOR, URINE YELLOW (YELLOW); GLUCOSE, URINE (UA) AUTO 3+ mg/dL (NEGATIVE); KETONE, URINE AUTO NEGATIVE (NEGATIVE); LEUKOCYTE ESTERASE, URINE AUTO NEGATIVE (NEGATIVE); NITRITE, URINE AUTO NEGATIVE (NEGATIVE); PROTEIN, URINE AUTO 2+ mg/dL (NEGATIVE); RBC, URINE AUTO 7 /HPF (0-3); SPECIFIC GRAVITY URINE AUTO 1.017 (1.002-1.035); SQUAMOUS EPITHELIAL CELL UR AU 2 /HPF (0-6); WBC, URINE AUTO 4 /HPF (0-3)
[2024-08-17] MEDS ORDERED: ONDANSETRON 4MG 2ML VIAL IV PRN (14:30)
[2024-08-17] MEDS ORDERED: GLUCAGON INJ 1MG VIAL SC PRN (14:30)
[2024-08-17] MEDS ORDERED: DEXTROSE 50% 50ML SYRINGE IV PRN (14:30)
[2024-08-17] MEDS ORDERED: ALBUTEROL SULFATE 2.5MG/0.5ML INH CONCENTRATE NEB SOLN NEB PRN (14:30)
[2024-08-17] MEDS ORDERED: GLUCOSE 4 GM CHEW PO PRN (14:30)
[2024-08-17] MEDS: cefTRIAXone SOD 1 GM in DEXTROSE 5% (D5W) ADV/MINI-BAG 50 ML IV ONE (14:46)
[2024-08-17] MEDS ORDERED: MED REC IN PROGRESS XX SCH (15:15)
[2024-08-17] MEDS ORDERED: NOVOINJ3 SC (15:25)
[2024-08-17] MEDS ORDERED: LEVO125T4 PO (15:25)
[2024-08-17] MEDS ORDERED: ZOLP5TAB PO (15:25)
[2024-08-17] MEDS ORDERED: POTA-150 PO (15:25)
[2024-08-17] MEDS ORDERED: FAMO20TA PO (15:29)
[2024-08-17] MEDS ORDERED: FURO80TA2 PO (15:29)
[2024-08-17] MEDS ORDERED: ENAL1TAB46 PO (15:29)
[2024-08-17] MEDS ORDERED: TRUL10IN SC (15:29)
[2024-08-17] MEDS ORDERED: NITR0.4S14 SL (15:29)
[2024-08-17] MEDS ORDERED: FARX1TAB3 PO (15:29)
[2024-08-17] MEDS ORDERED: HOME MED LIST COMPLETE! XX SCH (15:30)
[2024-08-17 16:16] VITALS: BP 138/84; TEMP 98.1; O2SAT 96
[2024-08-17] MEDS: KETOROLAC 30 MG/ML 1ML VIAL IV ONE (16:32)
[2024-08-17] MEDS: DOXYCYCLINE HYCLATE 100 MG in DEXTROSE 5% (D5W) MINI-BAG PLU 100 ML IV ONE (16:32)
[2024-08-17] MEDS: NS (Normal Saline) 0.9% 1,000 ML IV ONE (16:33)
[2024-08-17] MEDS: CALCIUM CARBONATE 500 MG CHEW U/D PO PRN (17:56)
[2024-08-17] MEDS: INSULIN LISPRO (NovoLOG) PER UNIT SC SCH ×2 (17:56→21:00)
[2024-08-17 20:24] VITALS: BP 129/73; TEMP 97.9; O2SAT 98
[2024-08-17] MEDS: DAPAGLIFLOZIN PROPANEDIOL 10MG TABLET PO SCH (21:09)
[2024-08-17] MEDS: GABAPENTIN 300 MG CAP PO SCH (21:09)
[2024-08-17] MEDS: PANTOPRAZOLE 40MG TAB PO SCH (21:09)
[2024-08-17] MEDS: AMITRIPTYLINE 25MG TABLET PO SCH (21:09)
[2024-08-17 21:30] VITALS: O2SAT 98
[2024-08-17] MEDS: zolPIDEM TARTRATE 5 MG TAB PO SCH (22:19)
[2024-08-18 05:11] VITALS: BP 139/73; TEMP 99.7; O2SAT 96
[2024-08-18] MEDS: LEVOTHYROXINE 150MCG TABLET (0.15MG) PO SCH (06:03)
[2024-08-18 06:19] LABS: BASO % 0.2 % (0.0-1.0); EOS % 0.5 % (0.0-3.0); HEMATOCRIT 42.7 % (36.0-47.0); HEMOGLOBIN 13.6 g/dl (12.0-15.5); LYMPH # 0.9 10^3/uL (1.5-5.0); LYMPH % 19.9 % (24.0-44.0); MEAN CORPUSCULAR HEMOGLOBIN 31.6 pg (27.0-33.0); MEAN CORPUSCULAR HGB CONC 31.9 g/dl (32.0-36.5); MEAN CORPUSCULAR VOLUME 99.3 fl (80.0-96.0); MONO # 0.3 10^3/uL (0.0-0.8); MONO % 7.5 % (2.0-8.0); NEUTROPHILS # 3.1 10^3/uL (1.5-8.5); NEUTROPHILS % 71.7 % (36.0-66.0); PLATELET COUNT, AUTOMATED 106 10^3/uL (150-450); WHITE BLOOD COUNT 4.3 10^3/uL (4.0-10.0)
[2024-08-18 06:43] LABS: CALCIUM LEVEL 8.3 MG/DL (8.3-10.6); CREATININE FOR GFR 1.47 MG/DL (0.55-1.30); GLOMERULAR FILTRATION RATE 37.5 (>39); POTASSIUM SERUM 3.5 MMOL/L (3.5-5.1)
[2024-08-18] MEDS: ALBUTEROL SULFATE 2.5MG/0.5ML INH CONCENTRATE NEB SOLN NEB SCH (08:00)
[2024-08-18] MEDS: allopurinoL 100 MG TAB PO SCH (09:05)
[2024-08-18] MEDS: CLOPIDOGREL 75 MG TAB PO SCH (09:05)
[2024-08-18] MEDS: NS 500 ML IV ONE (09:05)
[2024-08-18] MEDS: dexAMETHasone 20MG/5ML VIAL IV ONE (09:17)
[2024-08-18 12:00] VITALS: BP 142/72; TEMP 98.2; O2SAT 93
[2024-08-18] MEDS: guaiFENesin SYRUP 200MG 10ML UDC PO PRN (16:17)
[2024-08-18 21:08] VITALS: BP 143/69; TEMP 97.5; O2SAT 95
[2024-08-19 04:53] VITALS: BP 124/57; TEMP 97.2; O2SAT 94
[2024-08-19 06:36] LABS: BASO % 0.2 % (0.0-1.0); HEMATOCRIT 40.2 % (36.0-47.0); HEMOGLOBIN 12.9 g/dl (12.0-15.5); LYMPH # 0.6 10^3/uL (1.5-5.0); LYMPH % 13.5 % (24.0-44.0); MEAN CORPUSCULAR HEMOGLOBIN 31.5 pg (27.0-33.0); MEAN CORPUSCULAR HGB CONC 32.1 g/dl (32.0-36.5); MONO # 0.2 10^3/uL (0.0-0.8); MONO % 5.1 % (2.0-8.0); NEUTROPHILS # 3.4 10^3/uL (1.5-8.5); PLATELET COUNT, AUTOMATED 125 10^3/uL (150-450); WHITE BLOOD COUNT 4.2 10^3/uL (4.0-10.0)
[2024-08-19 07:00] LABS: CALCIUM LEVEL 8.7 MG/DL (8.3-10.6); CREATININE FOR GFR 1.41 MG/DL (0.55-1.30); GLOMERULAR FILTRATION RATE 39.4 (>39); POTASSIUM SERUM 3.7 MMOL/L (3.5-5.1)
[2024-08-19] MEDS: predniSONE 20 MG TAB PO SCH (09:07)
[2024-08-19 11:23] VITALS: BP 134/65; TEMP 97.5; O2SAT 94
[2024-08-19] MEDS ORDERED: PRED20TA PO (11:25)
[2024-08-19] MEDS ORDERED: VENTAER INH (11:26)
[2024-08-19] MEDS ORDERED: CEFD1CAP9 PO (17:43)
[2024-08-21] MEDS ORDERED: LEVOTHYROXINE 125MCG TABLET (0.125MG) PO SCH (06:00)
== END 2024-08-19 12:55 | disposition home or self-care (01) | DRG 194 ==
LOC: M ED 11:48 → EDBD 11:48 → M ED INP 14:27 → M MS5PR 15:53
PROVIDERS: ADMIT Internal Medicine Nephrology; ATTEND Internal Medicine
DX: J12.2 Parainfluenza virus pneumonia (principal); I50.42 Chronic combined systolic (congestive) and diastolic (congestive) heart failure; N18.4 Chronic kidney disease, stage 4 (severe); I13.0 Hypertensive heart and chronic kidney disease with heart failure and stage 1 through stage 4 chronic kidney disease, or unspecified chronic kidney disease; N39.0 Urinary tract infection, site not specified; E11.22 Type 2 diabetes mellitus with diabetic chronic kidney disease; E78.5 Hyperlipidemia, unspecified; F43.10 Post-traumatic stress disorder, unspecified; K21.9 Gastro-esophageal reflux disease without esophagitis; E03.9 Hypothyroidism, unspecified; I48.91 Unspecified atrial fibrillation; M10.9 Gout, unspecified; B96.20 Unspecified Escherichia coli [E. coli] as the cause of diseases classified elsewhere; I25.2 Old myocardial infarction; L40.8 Other psoriasis; Z86.711 Personal history of pulmonary embolism; Z86.718 Personal history of other venous thrombosis and embolism; Z85.41 Personal history of malignant neoplasm of cervix uteri; Z79.899 Other long term (current) drug therapy; Z79.890 Hormone replacement therapy; Z88.0 Allergy status to penicillin; Z91.040 Latex allergy status; Z88.5 Allergy status to narcotic agent; Z88.8 Allergy status to other drugs, medicaments and biological substances

== ENCOUNTER → 2024-12-03 | Outpatient (REF) | payer MEDICARE, MEDICAID ==
[~2024-12-03] MED LIST changes: +CEFD1CAP9 PO; +ENAL1TAB46 PO; +FAMO20TA PO; +FARX1TAB3 PO; +LEVO125T4 PO; +NITR0.4S14 SL; +NOVOINJ3 SC; +POTA-150 PO; +PRED20TA PO; +TRUL10IN SC
[2024-12-03 18:45] LABS: ESTIMATED AVERAGE GLUCOSE 157.0 MG/DL (60-110)
== END ==
LOC: M SFHCADAM 11:44
PROVIDERS: ATTEND Physician Assistant
DX: E11.40 Type 2 diabetes mellitus with diabetic neuropathy, unspecified (principal)